=== PATIENT | male | born 1955 | race Two or more races ===

== ENCOUNTER 2024-09-26 19:33 | Emergency (ER) | payer BC, SELFPAY ==
[2024-09-26 19:34] VITALS: BMI 29.9
--- NOTE | 2024-09-26 19:35 | EKG_ITS ---
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
[2024-09-26 20:10] VITALS: BP 115/77; PULSE 86; RESP 18; TEMP 36.8; O2SAT 98
--- NOTE | 2024-09-26 20:19 | XR_ITS ---
Examination: PA lateral chest 2 views Technique: Upright PA lateral chest 2 views Exam date and time: September 26, 20242025 hrs. Comparison April 28, 2024 Indications: Chest pain coughing beginning one week ago. Findings: Bibasilar pneumonia Mild prominence left ventricle Cardiac leads satisfactory position No pulmonary edema Impression: Mild to moderate bibasilar pneumonia
--- NOTE | 2024-09-26 20:19 | PD.EDRME ---
Rapid Medical Screening Exam RME Arrival date/time: 09/26/24 19:33 68-year-old male with past medical history of diabetes, CAD, and pacemaker presents emergency department complaining of worsening shortness of breath and edema to abdomen and bilateral lower extremities that is been progressively getting worse for 2 weeks. Chief Complaint: General Adult/Misc Complain Time Seen by Provider: 09/26/24 20:17 Vital signs: Vital Signs Temperature 98.3 F 09/26/24 20:10 Pulse Rate 86 09/26/24 20:10 Respiratory Rate 18 09/26/24 20:10 Blood Pressure 115/77 09/26/24 20:10 Pulse Oximetry (%) 98 09/26/24 20:10 Oxygen Delivery Method Room Air 09/26/24 20:10 Vital signs reviewed by provider: Yes
[2024-09-26 20:58] LABS: Basophils % (Auto) 0 % (0-2.5); Eosinophils # (Auto) 0.2 Thou/mm3 (0.0-0.5); Eosinophils % (Auto) 2 % (0-10); Hematocrit 43.2 % (41.0-53.0); Hemoglobin 13.9 g/dL (13.5-16.0); Immature Granulocytes % (Auto) 1 % (0-0); Immature Granulocytes Auto 0.05 Thou/mm3 (0.00-0.00); Lymphocytes # (Auto) 1.5 Thou/mm3 (1.0-4.8); Lymphocytes % (Auto) 15 % (10-50); Mean Corpuscular HGB Conc 32.2 g/dl (31.0-37.0); Mean Corpuscular Hemoglobin 27.1 pg (25.0-35.0); Mean Corpuscular Volume 84 fL (80-100); Monocytes # (Auto) 0.5 Thou/mm3 (0.0-0.8); Monocytes % (Auto) 6 % (0-12); Neutrophils # (Auto) 7.5 Thou/mm3 (1.8-7.7); Neutrophils % (Auto) 77 % (37-80); Nucleated Red Blood Cell % 0 /100 WBC (0); Platelet Count 208 Thou/mm3 (140-440); Red Blood Count 5.13 Miln/mm3 (4.50-5.90); White Blood Count 9.8 Thou/mm3 (3.8-10.6)
[2024-09-26 21:08] LABS: Collection Type, Urine Clean Catch
[2024-09-26 21:16] LABS: Bilirubin,Urine Negative (Negative); Blood,Urine Negative (Negative); Clarity,Urine Clear (Clear/Hazy); Color,Urine Yellow (Lt Yel-Yel); Glucose, Urine Negative (Negative); Hyaline Casts,Urine < 1 /hpf (0-1); Ketones,Urine Negative (Negative); Leukocyte Esterase,Urine Negative (Negative); Nitrite,Urine Negative (Negative); PH,Urine 6.5 (5.0-7.0); Protein,Urine 1+ (Neg - Trace); RBC,Urine 1 /hpf (0-3); Specific Gravity,Urine 1.016 (1.001-1.035); Squamous Epithelial Cell,Urine < 1 /hpf (0-5); Urobilinogen,Urine Negative mg/dL (0.0-1.0); WBC,Urine 1 /hpf (0-5)
[2024-09-26 21:19] LABS: B-Type Natriuretic Peptide > 3280 pg/mL (0-100)
[2024-09-26 21:20] LABS: Alanine Aminotransferase 55 U/L (10-49); Albumin, Serum 3.9 gm/dL (3.4-4.8); Alkaline Phosphatase 269 U/L (46-116); Anion Gap 6 (7-16); Aspartate Amino Transferase 85 U/L (0-34); BUN/Creatinine Ratio 12 Ratio (12-20); Bilirubin,Total 1.3 mg/dL (0.3-1.2); Blood Urea Nitrogen 16 mg/dL (9-23); Calcium 9.6 mg/dL (8.3-10.6); Calcium (Corrected) 9.7 mg/dL (8.5-10.1); Carbon Dioxide 29.6 mMol/L (20.0-31.0); Chloride 102 mMol/L (98-107); Creatinine (Component) 1.3 mg/dL (0.6-1.3); Estimated Creatinine Clearance 53.5 mL/min (>60); Globulin 3.9 gm/dL (2.3-3.5); Glucose 150 mg/dL (74-106); Magnesium 2.1 mg/dL (1.6-2.6); Osmolality,Calculated 279 (275-295); Potassium 4.2 mMol/L (3.4-5.1); Sodium 138 mMol/L (136-145); Total Protein 7.8 gm/dL (5.7-8.2); eGFR 60 See Note
[2024-09-26 21:22] LABS: Troponin I 0.076 ng/mL (0.0-0.045)
[2024-09-26 21:23] VITALS: BP 116/80; PULSE 79; RESP 18; TEMP 37.3; O2SAT 97
--- NOTE | 2024-09-26 21:31 | EDNOTE_ITS ---
ED General RME/HPI General Chief complaint: General Adult/Misc Complain Stated complaint: BILATERAL LEG SWELLING, SOB Time Seen by Provider: 09/26/24 20:17 Source: patient Arrival date/time: 09/26/24 19:33 Mode of arrival: ambulatory Limitations: no limitations RME / HPI RME / HPI narrative: 09/26/24 19:33 68-year-old male with past medical history of diabetes, CAD, and pacemaker presents emergency department complaining of worsening shortness of breath and edema to abdomen and bilateral lower extremities that is been progressively getting worse for [address] BAUTISTA MAIN ED EVALUATION: 68 year old male presents to the Emergency Department with complaints of worsening shortness of breath and edema to lower extremities. Associated symptoms include fatigue. Symptoms are mild to moderate. PMHx: Nonischemic cardiomyopathy, chronic systolic heart failure, paroxysmal atrial fibrillation, heart failure with reduced ejection fraction 25-30% on maximal medical management including carvedilol, Entresto, and diuretics; pacemaker. Social Hx: No tobacco, alcohol, or substance use. Related Data Home Medications ?Medication ?Instructions ?Recorded ?Confirmed empagliflozin 25 mg tablet 25 mg PO QDAY 11/16/20 05/21/24 (Jardiance) amiodarone 200 mg tablet 200 mg PO BID 02/26/21 05/21/24 sitagliptin phosphate 100 mg 100 mg PO QDAY 02/27/21 05/21/24 tablet (Januvia) Previous Rx's ?Medication ?Instructions ?Recorded doxycycline monohydrate 100 mg 100 mg PO BID #14 caps 09/26/24 capsule Allergies Allergy/AdvReac Type Severity Reaction Status Date / Time No Known Allergies Allergy Verified 09/26/24 19:35 Review of Systems Review of Systems Systems Reviewed: All systems reviewed, normal except as documented Narrative Review of Systems: GEN: No fever, no chills, no weight loss, + edema to lower extremities, + fatigue EYES: No discharge, no visual changes, no pain HEENT: No ear pain, no congestion, no sore throat PULM: + shortness of breath, no cough, no congestion CV: No chest pain, no dyspnea on exertion, no palpitations GI: No nausea, no vomiting, no diarrhea, no pain, no constipation : No frequency, no urgency and no dysuria MUSC/SKEL: No joint pain, no back pain SKIN: No rash PSYCH: No hallucinations, no depression HEME/LYMPH: No easy bleeding or bruising tendencies NEURO: No weakness, no headache Past Medical History Past Medical History CARDIAC: Positive Congestive Heart Failure RESPIRATORY: Positive Asthma, Bronchitis and Pneumonia GENITOURINARY: Positive Genitourinary Disorders MUSCULOSKELETAL: Positive Musculoskeletal Disorders ENDOCRINE: Positive Endocrine Disorders and Diabetes Mellitus Type 2 OTHER HISTORY: Positive Measles Family History FAMILY HISTORY: Positive Family Cardiac Disorders, Family Gastrointestinal Problems and Family Cancer Surgical History SURGICAL: Positive Angiogram and Abdominal Surgery Social History SMOKING STATUS: Never smoker SECOND HAND EXPOSURE: No SUBSTANCE USE: does not use ALCOHOL: Never ED Exam Narrative Physical exam: GENERAL APPEARANCE: alert and oriented x 4, well-developed, well-nourished, no acute distress VITALS: All vitals were reviewed and the pulse ox is 97% on room air, which is normal according to my interpretation. HEENT: Normocephalic, atraumatic; pupils equal, round, reactive to light; EOMI; mucous membranes pink, moist; oropharynx clear NECK: Supple LUNGS: CTABL; no wheezes, no rales, no rhonchi HEART: Regular rate, regular rhythm; normal S1, S2; no murmurs ABDOMEN: non distended; normal BS; soft, no tenderness, no guarding, no rebound; no masses, no organomegaly, no hernia BACK: no CVA tenderness EXTREMITIES: atraumatic; no edema NEUROLOGIC: awake; alert and oriented x4; cranial nerves II-XII grossly intact; no focal sensory or motor deficits PSYCHIATRIC: appropriate mood and affect SKIN: warm, dry, normal color; no rashes General Limitations: Present no limitations Course Course Course Narrative: Reviewed records Echocardiogram 04/28/24: Dilated cardiomyopathy. Severe systolic dysfunction. Severe global hypokinesis. Estimated EF 25-30% Quality Measures none Orders Category Date Time Status EKG (ED ONLY) *Do not use* NOW Care 09/26/24 19:35 Completed Intake and Output Routine Care 09/26/24 22:43 Ordered EKG (ED Only) Stat Exams 09/26/24 19:35 Draft XR chest 2V Stat Exams 09/26/24 20:19 Completed B-Type Natriuretic Peptide Stat Lab 09/26/24 20:43 Completed CBC Stat Lab 09/26/24 20:43 Completed Comprehensive Metabolic Panel Stat Lab 09/26/24 20:43 Completed Drug Screen,Urine Stat Lab 09/26/24 20:55 Completed Magnesium Stat Lab 09/26/24 20:43 Completed Partial Thromboplastin Time Stat Lab 09/26/24 21:50 Completed Prothrombin Time with INR Stat Lab 09/26/24 21:50 Completed Troponin I Stat Lab 09/26/24 20:43 Completed Troponin I Stat Lab 09/26/24 23:47 Completed Urinalysis Stat Lab 09/26/24 20:55 Completed Doxycycline [Vibramycin] Med 09/26/24 23:53 Discontinued 100 mg PO X1 ONE Furosemide Inj [Lasix Inj] Med 09/26/24 21:28 Discontinued 40 mg IVP X1 ONE Vital Signs Vital signs: Vital Signs Temperature 98.3 F 09/26/24 20:10 Pulse Rate 86 09/26/24 20:10 Respiratory Rate 18 09/26/24 20:10 Blood Pressure 115/77 09/26/24 20:10 Pulse Oximetry (%) 98 09/26/24 20:10 Oxygen Delivery Method Room Air 09/26/24 20:10 [facility] Patient data External records reviewed:: [facility] previous records (Reviewed operative note by Dr. Craig dated 05/24/24.) Clinical information provided by:: patient Social determinants that could affect healthcare access:: none Patient has the following chronic illnesses:: Nonischemic cardiomyopathy, chronic systolic heart failure, paroxysmal atrial fibrillation, heart failure with reduced ejection fraction 25-30% on maximal medical management including carvedilol, Entresto, and diuretics; pacemaker. How is presenting disease/condition affected by chronic disease/condition?: e xacerbated by Evaluation data The following diagnostics were reviewed and interpreted by me:: lab results, radiology exam(s) and EKG tracing(s) Lab and/or radiology exams considered but not ordered:: none Interpretation Summary: Procedure(s): XR chest 2V Accession Number(s): [id number] cc: Alexander Rod MD; Sj Ambriz (FNP); Rolando Irizarry MD~ Examination: PA lateral chest 2 views Technique: Upright PA lateral chest 2 views Exam date and time: September 26, 20242025 hrs. Comparison April 28, 2024 Indications: Chest pain coughing beginning one week ago. Findings: Bibasilar pneumonia Mild prominence left ventricle Cardiac leads satisfactory position No pulmonary edema Impression: Mild to moderate bibasilar pneumonia Dictated By: Alexander Rod MD Medications Medications considered but not ordered:: none Medication administrations:: Medication Administration History Discontinued Medications Doxycycline Hyclate (Doxycycline 100 Mg Tablet) 100 mg PO X1 ONE Stop: 09/26/24 23:54 Last Admin: 09/27/24 00:25 Dose: 100 mg Documented By: Furosemide (Furosemide Inj 10 Mg/Ml 4ml Vial) 40 mg IVP X1 ONE Stop: 09/26/24 21:29 Last Admin: 09/26/24 21:37 Dose: 40 mg Documented By: CB see above Consultations Consultation(s) initiated? (list below): No Diagnosis Differential Diagnosis ED Complaint MDM: acute on chronic renal failure, worsening CHF, cardiomyopathy Most likely diagnosis given after review of the tests above:: Dyspnea, Bronchitis, CHF exacerbation Admission Indicated Admission indicated?: not indicated Explain why admission is indicated or not indicated:: Patient has no emergent abnormalities in their studies and can be managed on an outpatient basis. Admission Request Was there a request for admission?: No Disposition Plan Disposition Plan: Discharge Discharge Attestation Discharge Attestation: The patient and all family members were given an opportunity to ask questions and understood the discharge instructions. Discharge instructions specifically effects, indications for sooner follow up or return to the emergency department, and the expected course of current diagnosis. Patient condition: Stable Medical Decision Making MDM Narrative MDM Narrative: Scribe Attestation: I, Tonia Betancur, am scribing for and in the presence of Dr. Bautista. Provider Notation: Although this document has been carefully reviewed, there may still be some phonetic and other typographical errors. These errors are purely grammatical due to imperfections in the software program and should not be construed in any way to compromise the substance of the patient's medical care during this visit. Differential Diagnosis Differential Diagnosis: acute on chronic renal failure, worsening CHF, cardiomyopathy Medical Records Medical records reviewed: Yes I reviewed the patient's medical records. Lab Data Lab results reviewed: Yes I reviewed the patient's lab results. 09/26/24 20:43 09/26/24 20:43 Labs: Lab Results 09/26/24 09/26/24 09/26/24 Range/Units 20:43 20:55 21:50 WBC 9.8 (3.8-10.6) Thou/mm3 RBC 5.13 (4.50-5.90) Miln/mm3 Hgb 13.9 (13.5-16.0) g/dL Hct 43.2 (41.0-53.0) % MCV 84 (80-100) fL MCH 27.1 (25.0-35.0) pg MCHC 32.2 (31.0-37.0) g/dl RDW Std Deviation 52.0 H (35.1-43.9) fL Plt Count 208 (140-440) Thou/mm3 Neut % (Auto) 77 (37-80) % Lymph % (Auto) 15 (10-50) % [place] % (Auto) 6 (0-12) % Eos % (Auto) 2 (0-10) % Baso % (Auto) 0 (0-2.5) % Neut # (Auto) 7.5 (1.8-7.7) Thou/mm3 Lymph # (Auto) 1.5 (1.0-4.8) Thou/mm3 [place] # (Auto) 0.5 (0.0-0.8) Thou/mm3 Eos # (Auto) 0.2 (0.0-0.5) Thou/mm3 Baso # (Auto) 0.0 (0.0-0.2) Thou/mm3 Immature Gran # (Auto) 0.05 H (0.00-0.00) Thou/mm3 Absolute Nucleated RBC 0.00 (0.00-0.00) Thou/mm3 Immature Gran % 1 H (0-0) % Nucleated RBC % 0 (0) /100 WBC PT 11.6 (9.0-12.2) Seconds INR 1.1 (0.9-1.3) APTT 31.4 (22.0-36.0) Seconds Sodium 138 (136-145) mMol/L Potassium 4.2 (3.4-5.1) mMol/L Chloride 102 (98-107) mMol/L Carbon Dioxide 29.6 (20.0-31.0) mMol/L Anion Gap 6 L (7-16) BUN 16 (9-23) mg/dL Creatinine 1.3 (0.6-1.3) mg/dL Estim Creat Clear Calc 53.5 L (>60) mL/min eGFR 60 (60 - ) See Note BUN/Creatinine Ratio 12 (12-20) Ratio Glucose 150 H (74-106) mg/dL Calculated Osmolality 279 (275-295) Calcium 9.6 (8.3-10.6) mg/dL Corrected Calcium 9.7 (8.5-10.1) mg/dL Magnesium 2.1 (1.6-2.6) mg/dL Total Bilirubin 1.3 H (0.3-1.2) mg/dL AST 85 H (0-34) U/L ALT 55 H (10-49) U/L Alkaline Phosphatase 269 H (46-116) U/L Troponin I 0.076 H* (0.0-0.045) ng/mL B-Natriuretic Peptide > 3280 H* (0-100) pg/mL Total Protein 7.8 (5.7-8.2) gm/dL Albumin 3.9 (3.4-4.8) gm/dL Globulin 3.9 H (2.3-3.5) gm/dL Albumin/Globulin Ratio 1.0 L (1.2-2.2) Ur Collection Type Clean Catch Urine Color Yellow (Lt Yel-Yel) Urine Clarity Clear (Clear/Hazy) Urine pH 6.5 (5.0-7.0) Ur Specific [place] 1.016 (1.001-1.035) Urine Protein 1+ A (Neg - Trace) Urine Glucose (UA) Negative (Negative) Urine Ketones Negative (Negative) Urine Blood Negative (Negative) Urine Nitrite Negative (Negative) Urine Bilirubin Negative (Negative) Urine Urobilinogen (Auto) Negative (0.0-1.0) mg/dL Ur Leukocyte Esterase Negative (Negative) Urine RBC 1 (0-3) /hpf Urine WBC 1 (0-5) /hpf Ur Squamous Epith Cells < 1 (0-5) /hpf Urine Bacteria None (None) Hyaline Casts < 1 (0-1) /hpf Urine Opiates Screen Negative (Negative) Urine Fentanyl Screen Negative (Negative) Ur Barbiturates Screen Negative (Negative) U Amphetamin/Meth Scrn Negative (Negative) U Benzodiazepines Scrn Negative (Negative) U Cocaine Metab Screen Negative (Negative) U Marijuana (THC) Screen Negative (Negative) 09/27/24 Range/Units 00:10 WBC (3.8-10.6) Thou/mm3 RBC (4.50-5.90) Miln/mm3 Hgb (13.5-16.0) g/dL Hct (41.0-53.0) % MCV (80-100) fL MCH (25.0-35.0) pg MCHC (31.0-37.0) g/dl RDW Std Deviation (35.1-43.9) fL Plt Count (140-440) Thou/mm3 Neut % (Auto) (37-80) % Lymph % (Auto) (10-50) % [place] % (Auto) (0-12) % Eos % (Auto) (0-10) % Baso % (Auto) (0-2.5) % Neut # (Auto) (1.8-7.7) Thou/mm3 Lymph # (Auto) (1.0-4.8) Thou/mm3 [place] # (Auto) (0.0-0.8) Thou/mm3 Eos # (Auto) (0.0-0.5) Thou/mm3 Baso # (Auto) (0.0-0.2) Thou/mm3 Immature Gran # (Auto) (0.00-0.00) Thou/mm3 Absolute Nucleated RBC (0.00-0.00) Thou/mm3 Immature Gran % (0-0) % Nucleated RBC % (0) /100 WBC PT (9.0-12.2) Seconds INR (0.9-1.3) APTT (22.0-36.0) Seconds Sodium (136-145) mMol/L Potassium (3.4-5.1) mMol/L Chloride (98-107) mMol/L Carbon Dioxide (20.0-31.0) mMol/L Anion Gap (7-16) BUN (9-23) mg/dL Creatinine (0.6-1.3) mg/dL Estim Creat Clear Calc (>60) mL/min eGFR (60 - ) See Note BUN/Creatinine Ratio (12-20) Ratio Glucose (74-106) mg/dL Calculated Osmolality (275-295) Calcium (8.3-10.6) mg/dL Corrected Calcium (8.5-10.1) mg/dL Magnesium (1.6-2.6) mg/dL Total Bilirubin (0.3-1.2) mg/dL AST (0-34) U/L ALT (10-49) U/L Alkaline Phosphatase (46-116) U/L Troponin I 0.075 H* (0.0-0.045) ng/mL B-Natriuretic Peptide (0-100) pg/mL Total Protein (5.7-8.2) gm/dL Albumin (3.4-4.8) gm/dL Globulin (2.3-3.5) gm/dL Albumin/Globulin Ratio (1.2-2.2) Ur Collection Type Urine Color (Lt Yel-Yel) Urine Clarity (Clear/Hazy) Urine pH (5.0-7.0) Ur Specific [place] (1.001-1.035) Urine Protein (Neg - Trace) Urine Glucose (UA) (Negative) Urine Ketones (Negative) Urine Blood (Negative) Urine Nitrite (Negative) Urine Bilirubin (Negative) Urine Urobilinogen (Auto) (0.0-1.0) mg/dL Ur Leukocyte Esterase (Negative) Urine RBC (0-3) /hpf Urine WBC (0-5) /hpf Ur Squamous Epith Cells (0-5) /hpf Urine Bacteria (None) Hyaline Casts (0-1) /hpf Urine Opiates Screen (Negative) Urine Fentanyl Screen (Negative) Ur Barbiturates Screen (Negative) U Amphetamin/Meth Scrn (Negative) U Benzodiazepines Scrn (Negative) U Cocaine Metab Screen (Negative) U Marijuana (THC) Screen (Negative) Radiology Data Radiology results reviewed: Yes I reviewed the patient's radiology results. Discharge Plan Plan Patient Disposition: HOME (Self Care) Prescriptions/Referrals Prescriptions/Med Rec: New doxycycline monohydrate 100 mg capsule 100 mg PO BID Qty: 14 0RF No Action amiodarone 200 mg Tablet 200 mg PO BID Hold Instructions: hold until seen by doctor with appointment until further instructions Januvia 100 mg Tablet 100 mg PO QDAY Jardiance 25 mg Tablet 25 mg PO QDAY Hold Instructions: hold until seen by doctor with appointment until further instructions Referrals: Rolando Irizarry MD [Primary Care Provider] - In 1 week Problem List Clinical Impression: Dyspnea, Bronchitis, CHF exacerbation Patient/Caregiver Discharge Instructions Education Materials: ED Upper Resp Infec Abx Tx, Heart Failure Print Language: Slovenian Stand Alone Forms: Be[employer]ice Award Info., Patient Portal Info Letter
[2024-09-26 21:34] LABS: Amphetamine/Methamp Scrn,U Negative (Negative); Barbiturate Screen,Urine Negative (Negative); Benzodiazepines Screen,Urine Negative (Negative); Benzoylecgonine Screen, Ur Negative (Negative); Fentanyl Screen,Urine Negative (Negative); Opiate Screen,Urine Negative (Negative); THC Screen,Urine Negative (Negative)
[2024-09-26 21:37] VITALS: BP 121/89; PULSE 80
[2024-09-26] MEDS: FUROSEMIDE INJ 10 MG/ML 4ML VIAL 40 MG IVP (21:37)
[2024-09-26 22:21] LABS: INR 1.1 (0.9-1.3); Partial Thromboplastin Time 31.4 Seconds (22.0-36.0); Prothrombin Time 11.6 Seconds (9.0-12.2)
[2024-09-26 22:45] VITALS: BP 104/75; PULSE 73; RESP 18; TEMP 37.3; O2SAT 97
[2024-09-27] MEDS: DOXYCYCLINE 100 MG TABLET PO (00:25)
[2024-09-27 00:46] VITALS: BP 111/82; PULSE 73; RESP 20; O2SAT 97
[2024-09-27 00:51] LABS: Troponin I 0.075 ng/mL (0.0-0.045)
[2024-09-27 02:00] VITALS: BP 102/67; PULSE 72; RESP 20; TEMP 37.2; O2SAT 95
== END 2024-09-27 02:01 | disposition home or self-care (01) ==
PROVIDERS: Emergency Provider Emergency Medicine; PCP Family Medicine
DX: J40 Bronchitis, not specified as acute or chronic (principal); J18.9 Pneumonia, unspecified organism; I50.22 Chronic systolic (congestive) heart failure; I48.0 Paroxysmal atrial fibrillation; I42.8 Other cardiomyopathies; R94.31 Abnormal electrocardiogram [ECG] [EKG]; Z95.0 Presence of cardiac pacemaker
CPT/HCPCS: 36415; 71046; 80053; 80307; 81001; 83735; 83880; 84484; 85025; 85610; 85730; 93005; 96374; 99284; J1940; A9270

== ENCOUNTER → 2024-10-11 | Outpatient (CLI) | payer BC, SELFPAY ==
[2024-10-11 08:49] LABS: Albumin, Serum 3.7 gm/dL (3.4-4.8); Anion Gap 8 (7-16); BUN/Creatinine Ratio 19 Ratio (12-20); Blood Urea Nitrogen 25 mg/dL (9-23); Calcium 9.3 mg/dL (8.3-10.6); Calcium (Corrected) 9.5 mg/dL (8.5-10.1); Carbon Dioxide 31.4 mMol/L (20.0-31.0); Chloride 100 mMol/L (98-107); Creatinine (Component) 1.3 mg/dL (0.6-1.3); Glucose 91 mg/dL (74-106); Osmolality,Calculated 281 (275-295); Phosphorous 3.5 mg/dL (2.4-5.1); Potassium 3.8 mMol/L (3.4-5.1); Sodium 139 mMol/L (136-145); eGFR 60 See Note
== END | disposition home or self-care (01) ==
PROVIDERS: PCP Family Medicine; Referring Provider Internal Medicine Cardiovascular Disease; Visit Provider Internal Medicine Cardiovascular Disease
DX: I50.22 Chronic systolic (congestive) heart failure (principal)
CPT/HCPCS: 36415; 80069

== ENCOUNTER → 2024-10-21 | Outpatient (CLI) | payer BC, SELFPAY ==
[2024-10-21 08:44] LABS: Basophils % (Auto) 0 % (0-2.5); Eosinophils # (Auto) 0.1 Thou/mm3 (0.0-0.5); Eosinophils % (Auto) 1 % (0-10); Hematocrit 50.9 % (41.0-53.0); Hemoglobin 16.5 g/dL (13.5-16.0); Immature Granulocytes % (Auto) 1 % (0-0); Immature Granulocytes Auto 0.05 Thou/mm3 (0.00-0.00); Lymphocytes # (Auto) 1.4 Thou/mm3 (1.0-4.8); Lymphocytes % (Auto) 13 % (10-50); Mean Corpuscular HGB Conc 32.4 g/dl (31.0-37.0); Mean Corpuscular Hemoglobin 26.5 pg (25.0-35.0); Mean Corpuscular Volume 82 fL (80-100); Monocytes # (Auto) 0.7 Thou/mm3 (0.0-0.8); Monocytes % (Auto) 7 % (0-12); Neutrophils # (Auto) 8.1 Thou/mm3 (1.8-7.7); Neutrophils % (Auto) 78 % (37-80); Nucleated Red Blood Cell % 0 /100 WBC (0); Platelet Count 257 Thou/mm3 (140-440); RDW Standard Deviation 46.7 fL (35.1-43.9); Red Blood Count 6.23 Miln/mm3 (4.50-5.90); White Blood Count 10.4 Thou/mm3 (3.8-10.6)
[2024-10-21 09:12] LABS: Alanine Aminotransferase 113 U/L (10-49); Alkaline Phosphatase 390 U/L (46-116); Anion Gap 6 (7-16); Aspartate Amino Transferase 154 U/L (0-34); BUN/Creatinine Ratio 21 Ratio (12-20); Bilirubin,Total 1.2 mg/dL (0.3-1.2); Blood Urea Nitrogen 34 mg/dL (9-23); Calcium 9.1 mg/dL (8.3-10.6); Calcium (Corrected) 9.1 mg/dL (8.5-10.1); Carbon Dioxide 33.6 mMol/L (20.0-31.0); Chloride 90 mMol/L (98-107); Creatinine (Component) 1.6 mg/dL (0.6-1.3); Glucose 101 mg/dL (74-106); Osmolality,Calculated 268 (275-295); Phosphorous 3.4 mg/dL (2.4-5.1); Potassium 3.9 mMol/L (3.4-5.1); Sodium 130 mMol/L (136-145); eGFR 47 See Note
== END | disposition home or self-care (01) ==
PROVIDERS: PCP Internal Medicine Cardiovascular Disease; Referring Provider Family Medicine; Visit Provider Internal Medicine Nephrology
DX: I13.0 Hypertensive heart and chronic kidney disease with heart failure and stage 1 through stage 4 chronic kidney disease, or unspecified chronic kidney disease (principal); E11.22 Type 2 diabetes mellitus with diabetic chronic kidney disease; N18.9 Chronic kidney disease, unspecified; D63.1 Anemia in chronic kidney disease; E78.5 Hyperlipidemia, unspecified; I50.22 Chronic systolic (congestive) heart failure
CPT/HCPCS: 36415; 80053; 84100; 85025

== ENCOUNTER → 2024-11-03 | Outpatient (CLI) | payer BC, SELFPAY ==
[2024-11-03 08:22] LABS: Basophils % (Auto) 1 % (0-2.5); Eosinophils # (Auto) 0.2 Thou/mm3 (0.0-0.5); Eosinophils % (Auto) 2 % (0-10); Hematocrit 45.2 % (41.0-53.0); Hemoglobin 14.7 g/dL (13.5-16.0); Immature Granulocytes % (Auto) 1 % (0-0); Immature Granulocytes Auto 0.04 Thou/mm3 (0.00-0.00); Lymphocytes # (Auto) 1.1 Thou/mm3 (1.0-4.8); Lymphocytes % (Auto) 13 % (10-50); Mean Corpuscular HGB Conc 32.5 g/dl (31.0-37.0); Mean Corpuscular Hemoglobin 26.7 pg (25.0-35.0); Mean Corpuscular Volume 82 fL (80-100); Monocytes # (Auto) 0.6 Thou/mm3 (0.0-0.8); Monocytes % (Auto) 8 % (0-12); Neutrophils # (Auto) 6.2 Thou/mm3 (1.8-7.7); Neutrophils % (Auto) 76 % (37-80); Nucleated Red Blood Cell % 0 /100 WBC (0); Platelet Count 218 Thou/mm3 (140-440); RDW Standard Deviation 47.8 fL (35.1-43.9); White Blood Count 8.2 Thou/mm3 (3.8-10.6)
[2024-11-03 08:39] LABS: Alanine Aminotransferase 68 U/L (10-49); Albumin, Serum 3.6 gm/dL (3.4-4.8); Alkaline Phosphatase 366 U/L (46-116); Anion Gap 6 (7-16); Aspartate Amino Transferase 98 U/L (0-34); BUN/Creatinine Ratio 16 Ratio (12-20); Bilirubin,Total 1.4 mg/dL (0.3-1.2); Blood Urea Nitrogen 18 mg/dL (9-23); Calcium 8.8 mg/dL (8.3-10.6); Calcium (Corrected) 9.1 mg/dL (8.5-10.1); Carbon Dioxide 31.2 mMol/L (20.0-31.0); Chloride 98 mMol/L (98-107); Creatinine (Component) 1.1 mg/dL (0.6-1.3); Globulin 3.5 gm/dL (2.3-3.5); Glucose 78 mg/dL (74-106); Magnesium 2.1 mg/dL (1.6-2.6); Osmolality,Calculated 271 (275-295); Potassium 4.5 mMol/L (3.4-5.1); Sodium 135 mMol/L (136-145); Total Protein 7.1 gm/dL (5.7-8.2); eGFR > 60 See Note
== END | disposition home or self-care (01) ==
PROVIDERS: PCP Family Medicine; Referring Provider Internal Medicine Nephrology; Visit Provider Internal Medicine Nephrology
DX: I12.9 Hypertensive chronic kidney disease with stage 1 through stage 4 chronic kidney disease, or unspecified chronic kidney disease (principal); N18.30 Chronic kidney disease, stage 3 unspecified; D63.1 Anemia in chronic kidney disease
CPT/HCPCS: 36415; 80053; 83735; 85025

== ENCOUNTER → 2024-11-17 | Outpatient (CLI) | payer BC, SELFPAY ==
[2024-11-17 08:13] LABS: Basophils % (Auto) 1 % (0-2.5); Eosinophils # (Auto) 0.1 Thou/mm3 (0.0-0.5); Eosinophils % (Auto) 2 % (0-10); Hematocrit 43.7 % (41.0-53.0); Hemoglobin 14.4 g/dL (13.5-16.0); Immature Granulocytes % (Auto) 1 % (0-0); Immature Granulocytes Auto 0.04 Thou/mm3 (0.00-0.00); Lymphocytes # (Auto) 1.2 Thou/mm3 (1.0-4.8); Lymphocytes % (Auto) 16 % (10-50); Mean Corpuscular Hemoglobin 27.3 pg (25.0-35.0); Mean Corpuscular Volume 83 fL (80-100); Monocytes # (Auto) 0.5 Thou/mm3 (0.0-0.8); Monocytes % (Auto) 7 % (0-12); Neutrophils # (Auto) 5.6 Thou/mm3 (1.8-7.7); Neutrophils % (Auto) 74 % (37-80); Nucleated Red Blood Cell % 0 /100 WBC (0); Platelet Count 215 Thou/mm3 (140-440); RDW Standard Deviation 50.4 fL (35.1-43.9); Red Blood Count 5.28 Miln/mm3 (4.50-5.90); White Blood Count 7.6 Thou/mm3 (3.8-10.6)
[2024-11-17 08:47] LABS: Alanine Aminotransferase 74 U/L (10-49); Albumin, Serum 3.4 gm/dL (3.4-4.8); Albumin/Globulin Ratio 0.9 (1.2-2.2); Alkaline Phosphatase 292 U/L (46-116); Anion Gap 5 (7-16); Aspartate Amino Transferase 135 U/L (0-34); BUN/Creatinine Ratio 20 Ratio (12-20); Bilirubin,Total 1.3 mg/dL (0.3-1.2); Blood Urea Nitrogen 24 mg/dL (9-23); Calcium 9.3 mg/dL (8.3-10.6); Calcium (Corrected) 9.8 mg/dL (8.5-10.1); Carbon Dioxide 31.7 mMol/L (20.0-31.0); Chloride 101 mMol/L (98-107); Creatinine (Component) 1.2 mg/dL (0.6-1.3); Globulin 3.7 gm/dL (2.3-3.5); Glucose 108 mg/dL (74-106); Osmolality,Calculated 280 (275-295); Potassium 4.3 mMol/L (3.4-5.1); Sodium 138 mMol/L (136-145); Total Protein 7.1 gm/dL (5.7-8.2); eGFR > 60 See Note
== END | disposition home or self-care (01) ==
PROVIDERS: PCP Family Medicine; Referring Provider Internal Medicine Nephrology; Visit Provider Internal Medicine Nephrology
DX: I12.9 Hypertensive chronic kidney disease with stage 1 through stage 4 chronic kidney disease, or unspecified chronic kidney disease (principal); N18.9 Chronic kidney disease, unspecified; D63.1 Anemia in chronic kidney disease
CPT/HCPCS: 36415; 80053; 83735; 85025

== ENCOUNTER → 2024-12-01 | Outpatient (CLI) | payer BC, SELFPAY ==
[2024-12-01 08:33] LABS: Basophils # (Auto) 0.1 Thou/mm3 (0.0-0.2); Basophils % (Auto) 1 % (0-2.5); Eosinophils # (Auto) 0.2 Thou/mm3 (0.0-0.5); Eosinophils % (Auto) 2 % (0-10); Hematocrit 42.3 % (41.0-53.0); Hemoglobin 14.1 g/dL (13.5-16.0); Immature Granulocytes % (Auto) 1 % (0-0); Immature Granulocytes Auto 0.05 Thou/mm3 (0.00-0.00); Lymphocytes # (Auto) 1.2 Thou/mm3 (1.0-4.8); Lymphocytes % (Auto) 15 % (10-50); Mean Corpuscular HGB Conc 33.3 g/dl (31.0-37.0); Mean Corpuscular Hemoglobin 27.9 pg (25.0-35.0); Mean Corpuscular Volume 84 fL (80-100); Monocytes # (Auto) 0.6 Thou/mm3 (0.0-0.8); Monocytes % (Auto) 7 % (0-12); Neutrophils # (Auto) 5.9 Thou/mm3 (1.8-7.7); Neutrophils % (Auto) 75 % (37-80); Nucleated Red Blood Cell % 0 /100 WBC (0); Platelet Count 194 Thou/mm3 (140-440); RDW Standard Deviation 54.1 fL (35.1-43.9); Red Blood Count 5.06 Miln/mm3 (4.50-5.90); White Blood Count 7.9 Thou/mm3 (3.8-10.6)
[2024-12-01 08:50] LABS: Glucose Estimated Average 108 mg/dL (80-131); Hemoglobin A1C 5.4 % Hgb (4.8-6.0)
[2024-12-01 08:55] LABS: Alanine Aminotransferase 72 U/L (10-49); Albumin, Serum 3.3 gm/dL (3.4-4.8); Albumin/Globulin Ratio 0.8 (1.2-2.2); Alkaline Phosphatase 275 U/L (46-116); Anion Gap 9 (7-16); Aspartate Amino Transferase 117 U/L (0-34); BUN/Creatinine Ratio 19 Ratio (12-20); Bilirubin,Total 1.3 mg/dL (0.3-1.2); Blood Urea Nitrogen 19 mg/dL (9-23); Calcium 8.8 mg/dL (8.3-10.6); Calcium (Corrected) 9.4 mg/dL (8.5-10.1); Carbon Dioxide 29.5 mMol/L (20.0-31.0); Chloride 101 mMol/L (98-107); Glucose 97 mg/dL (74-106); Osmolality,Calculated 279 (275-295); Sodium 139 mMol/L (136-145); Total Protein 7.3 gm/dL (5.7-8.2); eGFR > 60 See Note
[2024-12-01 09:24] LABS: B-Type Natriuretic Peptide 479 pg/mL (0-100)
== END | disposition home or self-care (01) ==
PROVIDERS: PCP Family Medicine; Referring Provider Family Medicine; Visit Provider Family Medicine
DX: E11.65 Type 2 diabetes mellitus with hyperglycemia (principal)
CPT/HCPCS: 36415; 80053; 83036; 83880; 85025

== ENCOUNTER → 2024-12-15 | Outpatient (CLI) | payer BC, SELFPAY ==
[2024-12-15 08:39] LABS: Basophils % (Auto) 1 % (0-2.5); Eosinophils # (Auto) 0.2 Thou/mm3 (0.0-0.5); Eosinophils % (Auto) 2 % (0-10); Hematocrit 41.3 % (41.0-53.0); Hemoglobin 13.8 g/dL (13.5-16.0); Immature Granulocytes % (Auto) 0 % (0-0); Immature Granulocytes Auto 0.02 Thou/mm3 (0.00-0.00); Lymphocytes # (Auto) 1.2 Thou/mm3 (1.0-4.8); Lymphocytes % (Auto) 15 % (10-50); Mean Corpuscular HGB Conc 33.4 g/dl (31.0-37.0); Mean Corpuscular Hemoglobin 28.5 pg (25.0-35.0); Mean Corpuscular Volume 85 fL (80-100); Monocytes # (Auto) 0.5 Thou/mm3 (0.0-0.8); Monocytes % (Auto) 7 % (0-12); Neutrophils % (Auto) 76 % (37-80); Nucleated Red Blood Cell % 0 /100 WBC (0); Platelet Count 167 Thou/mm3 (140-440); RDW Standard Deviation 55.4 fL (35.1-43.9); Red Blood Count 4.84 Miln/mm3 (4.50-5.90); White Blood Count 7.9 Thou/mm3 (3.8-10.6)
[2024-12-15 08:59] LABS: Alanine Aminotransferase 55 U/L (10-49); Albumin, Serum 3.1 gm/dL (3.4-4.8); Albumin/Globulin Ratio 0.9 (1.2-2.2); Alkaline Phosphatase 232 U/L (46-116); Anion Gap 7 (7-16); Aspartate Amino Transferase 111 U/L (0-34); BUN/Creatinine Ratio 19 Ratio (12-20); Bilirubin,Total 1.4 mg/dL (0.3-1.2); Blood Urea Nitrogen 19 mg/dL (9-23); Calcium 8.9 mg/dL (8.3-10.6); Calcium (Corrected) 9.6 mg/dL (8.5-10.1); Chloride 101 mMol/L (98-107); Globulin 3.6 gm/dL (2.3-3.5); Glucose 88 mg/dL (74-106); Osmolality,Calculated 278 (275-295); Potassium 3.9 mMol/L (3.4-5.1); Sodium 139 mMol/L (136-145); Total Protein 6.7 gm/dL (5.7-8.2); eGFR > 60 See Note
== END | disposition home or self-care (01) ==
LOC: COPL 07:07
PROVIDERS: PCP Family Medicine; Referring Provider Internal Medicine Nephrology; Visit Provider Internal Medicine Cardiovascular Disease
DX: I12.9 Hypertensive chronic kidney disease with stage 1 through stage 4 chronic kidney disease, or unspecified chronic kidney disease (principal); N18.9 Chronic kidney disease, unspecified; D64.9 Anemia, unspecified
CPT/HCPCS: 36415; 80053; 85025

== ENCOUNTER → 2024-12-22 | Outpatient (CLI) | payer BC, SELFPAY ==
[2024-12-22 07:43] LABS: Glucose Estimated Average 100 mg/dL (80-131); Hemoglobin A1C 5.1 % Hgb (4.8-6.0)
[2024-12-22 07:48] LABS: Ammonia 21 uMol/L (11-32)
[2024-12-22 07:52] LABS: B-Type Natriuretic Peptide 823 pg/mL (0-100)
== END | disposition home or self-care (01) ==
PROVIDERS: PCP Family Medicine; Referring Provider Family Medicine; Visit Provider Family Medicine
DX: I50.9 Heart failure, unspecified (principal)
CPT/HCPCS: 36415; 82140; 83036; 83880

== ENCOUNTER → 2024-12-29 | Outpatient (CLI) | payer BC, SELFPAY ==
[2024-12-29 08:39] LABS: Glucose Estimated Average 97 mg/dL (80-131)
[2024-12-29 08:42] LABS: Basophils # (Auto) 0.1 Thou/mm3 (0.0-0.2); Basophils % (Auto) 1 % (0-2.5); Eosinophils # (Auto) 0.2 Thou/mm3 (0.0-0.5); Eosinophils % (Auto) 3 % (0-10); Hematocrit 42.5 % (41.0-53.0); Hemoglobin 14.1 g/dL (13.5-16.0); Immature Granulocytes % (Auto) 1 % (0-0); Immature Granulocytes Auto 0.04 Thou/mm3 (0.00-0.00); Lymphocytes # (Auto) 1.3 Thou/mm3 (1.0-4.8); Lymphocytes % (Auto) 16 % (10-50); Mean Corpuscular HGB Conc 33.2 g/dl (31.0-37.0); Mean Corpuscular Hemoglobin 28.5 pg (25.0-35.0); Mean Corpuscular Volume 86 fL (80-100); Monocytes # (Auto) 0.6 Thou/mm3 (0.0-0.8); Monocytes % (Auto) 7 % (0-12); Neutrophils # (Auto) 6.2 Thou/mm3 (1.8-7.7); Neutrophils % (Auto) 73 % (37-80); Nucleated Red Blood Cell % 0 /100 WBC (0); Platelet Count 179 Thou/mm3 (140-440); RDW Standard Deviation 54.4 fL (35.1-43.9); Red Blood Count 4.94 Miln/mm3 (4.50-5.90); White Blood Count 8.5 Thou/mm3 (3.8-10.6)
[2024-12-29 08:44] LABS: Alanine Aminotransferase 54 U/L (10-49); Albumin, Serum 3.1 gm/dL (3.4-4.8); Albumin/Globulin Ratio 0.8 (1.2-2.2); Alkaline Phosphatase 249 U/L (46-116); Anion Gap 5 (7-16); Aspartate Amino Transferase 99 U/L (0-34); BUN/Creatinine Ratio 14 Ratio (12-20); Bilirubin,Total 1.8 mg/dL (0.3-1.2); Blood Urea Nitrogen 15 mg/dL (9-23); Calcium 8.7 mg/dL (8.3-10.6); Calcium (Corrected) 9.4 mg/dL (8.5-10.1); Carbon Dioxide 30.3 mMol/L (20.0-31.0); Cardiac Risk Estimate 4.5 RATIO (4.0-6.7); Chloride 102 mMol/L (98-107); Cholesterol 144 mg/dL (132-200); Creatinine (Component) 1.1 mg/dL (0.6-1.3); Globulin 3.8 gm/dL (2.3-3.5); Glucose 103 mg/dL (74-106); HDL Cholesterol 32 mg/dL (40-60); LDL Cholesterol,Calculated 89 mg/dL (0-130); Magnesium 1.9 mg/dL (1.6-2.6); Osmolality,Calculated 274 (275-295); Potassium 4.5 mMol/L (3.4-5.1); Sodium 137 mMol/L (136-145); Total Protein 6.9 gm/dL (5.7-8.2); Triglycerides 117 mg/dL (30-150); eGFR > 60 See Note
[2024-12-29 09:00] LABS: Creatinine MALB Rnd Ur 72 mg/dL (30-125); Microalbumin, Random Urine < 3 mg/L (0-300)
== END | disposition home or self-care (01) ==
LOC: COPL 07:10
PROVIDERS: PCP Family Medicine; Referring Provider Internal Medicine Nephrology; Visit Provider Internal Medicine Nephrology
DX: I12.9 Hypertensive chronic kidney disease with stage 1 through stage 4 chronic kidney disease, or unspecified chronic kidney disease (principal); E11.22 Type 2 diabetes mellitus with diabetic chronic kidney disease; N18.31 Chronic kidney disease, stage 3a; E78.5 Hyperlipidemia, unspecified; D63.1 Anemia in chronic kidney disease
CPT/HCPCS: 36415; 80053; 80061; 82043; 82570; 83036; 83735; 85025

== ENCOUNTER → 2025-01-18 | Outpatient (CLI) | payer BC, SELFPAY ==
[2025-01-18 09:01] LABS: Glucose Estimated Average 91 mg/dL (80-131); Hemoglobin A1C 4.8 % Hgb (4.8-6.0)
[2025-01-18 09:13] LABS: B-Type Natriuretic Peptide 1008 pg/mL (0-100)
== END | disposition home or self-care (01) ==
PROVIDERS: PCP Family Medicine; Referring Provider Family Medicine; Visit Provider Family Medicine
DX: E11.65 Type 2 diabetes mellitus with hyperglycemia (principal)
CPT/HCPCS: 36415; 83036; 83880

== ENCOUNTER → 2025-01-24 | Outpatient (CLI) | payer BC, SELFPAY ==
[2025-01-24 11:43] LABS: Basophils # (Auto) 0.1 Thou/mm3 (0.0-0.2); Basophils % (Auto) 1 % (0-2.5); Eosinophils # (Auto) 0.2 Thou/mm3 (0.0-0.5); Eosinophils % (Auto) 2 % (0-10); Hematocrit 47.3 % (41.0-53.0); Hemoglobin 15.4 g/dL (13.5-16.0); Immature Granulocytes % (Auto) 1 % (0-0); Immature Granulocytes Auto 0.05 Thou/mm3 (0.00-0.00); Lymphocytes # (Auto) 1.4 Thou/mm3 (1.0-4.8); Lymphocytes % (Auto) 14 % (10-50); Mean Corpuscular HGB Conc 32.6 g/dl (31.0-37.0); Mean Corpuscular Hemoglobin 28.4 pg (25.0-35.0); Mean Corpuscular Volume 87 fL (80-100); Monocytes # (Auto) 0.7 Thou/mm3 (0.0-0.8); Monocytes % (Auto) 8 % (0-12); Neutrophils # (Auto) 7.5 Thou/mm3 (1.8-7.7); Neutrophils % (Auto) 76 % (37-80); Nucleated Red Blood Cell % 0 /100 WBC (0); Platelet Count 192 Thou/mm3 (140-440); RDW Standard Deviation 47.8 fL (35.1-43.9); Red Blood Count 5.43 Miln/mm3 (4.50-5.90); White Blood Count 9.9 Thou/mm3 (3.8-10.6)
[2025-01-24 12:00] LABS: Alanine Aminotransferase 59 U/L (10-49); Albumin, Serum 3.3 gm/dL (3.4-4.8); Albumin/Globulin Ratio 0.7 (1.2-2.2); Alkaline Phosphatase 249 U/L (46-116); Anion Gap 8 (7-16); Aspartate Amino Transferase 128 U/L (0-34); BUN/Creatinine Ratio 19 Ratio (12-20); Bilirubin,Total 1.9 mg/dL (0.3-1.2); Blood Urea Nitrogen 23 mg/dL (9-23); Calcium 9.6 mg/dL (8.3-10.6); Calcium (Corrected) 10.2 mg/dL (8.5-10.1); Carbon Dioxide 32.4 mMol/L (20.0-31.0); Chloride 96 mMol/L (98-107); Creatinine (Component) 1.2 mg/dL (0.6-1.3); Globulin 4.6 gm/dL (2.3-3.5); Glucose 102 mg/dL (74-106); Osmolality,Calculated 275 (275-295); Potassium 4.6 mMol/L (3.4-5.1); Sodium 136 mMol/L (136-145); Total Protein 7.9 gm/dL (5.7-8.2); eGFR > 60 See Note
== END | disposition home or self-care (01) ==
LOC: COPL 10:33
PROVIDERS: PCP Family Medicine; Referring Provider Internal Medicine Cardiovascular Disease; Visit Provider Internal Medicine Nephrology
DX: D64.9 Anemia, unspecified (principal); I50.9 Heart failure, unspecified; E78.5 Hyperlipidemia, unspecified
CPT/HCPCS: 36415; 80053; 85025

== ENCOUNTER → 2025-02-21 | Outpatient (CLI) | payer BC, SELFPAY ==
[2025-02-21 08:42] LABS: Basophils # (Auto) 0.1 Thou/mm3 (0.0-0.2); Basophils % (Auto) 1 % (0-2.5); Eosinophils # (Auto) 0.2 Thou/mm3 (0.0-0.5); Eosinophils % (Auto) 2 % (0-10); Hematocrit 45.8 % (41.0-53.0); Hemoglobin 15.4 g/dL (13.5-16.0); Immature Granulocytes % (Auto) 0 % (0-0); Immature Granulocytes Auto 0.03 Thou/mm3 (0.00-0.00); Lymphocytes # (Auto) 1.3 Thou/mm3 (1.0-4.8); Lymphocytes % (Auto) 14 % (10-50); Mean Corpuscular HGB Conc 33.6 g/dl (31.0-37.0); Mean Corpuscular Hemoglobin 28.6 pg (25.0-35.0); Mean Corpuscular Volume 85 fL (80-100); Monocytes # (Auto) 0.6 Thou/mm3 (0.0-0.8); Monocytes % (Auto) 6 % (0-12); Neutrophils # (Auto) 7.6 Thou/mm3 (1.8-7.7); Neutrophils % (Auto) 78 % (37-80); Nucleated Red Blood Cell % 0 /100 WBC (0); Platelet Count 181 Thou/mm3 (140-440); RDW Standard Deviation 46.8 fL (35.1-43.9); Red Blood Count 5.39 Miln/mm3 (4.50-5.90); White Blood Count 9.8 Thou/mm3 (3.8-10.6)
[2025-02-21 08:55] LABS: Alanine Aminotransferase 54 U/L (10-49); Albumin, Serum 3.3 gm/dL (3.4-4.8); Albumin/Globulin Ratio 0.7 (1.2-2.2); Alkaline Phosphatase 244 U/L (46-116); Anion Gap 7 (7-16); Aspartate Amino Transferase 108 U/L (0-34); BUN/Creatinine Ratio 13 Ratio (12-20); Bilirubin,Total 2.2 mg/dL (0.3-1.2); Blood Urea Nitrogen 15 mg/dL (9-23); Calcium (Corrected) 9.6 mg/dL (8.5-10.1); Carbon Dioxide 28.9 mMol/L (20.0-31.0); Chloride 95 mMol/L (98-107); Creatinine (Component) 1.2 mg/dL (0.6-1.3); Globulin 4.7 gm/dL (2.3-3.5); Glucose 113 mg/dL (74-106); Osmolality,Calculated 264 (275-295); Potassium 3.7 mMol/L (3.4-5.1); Sodium 131 mMol/L (136-145); eGFR > 60 See Note
== END | disposition home or self-care (01) ==
LOC: COPL 07:08
PROVIDERS: PCP Family Medicine; Referring Provider Internal Medicine Nephrology; Visit Provider Internal Medicine Nephrology
DX: E11.22 Type 2 diabetes mellitus with diabetic chronic kidney disease (principal); I12.9 Hypertensive chronic kidney disease with stage 1 through stage 4 chronic kidney disease, or unspecified chronic kidney disease; N18.30 Chronic kidney disease, stage 3 unspecified; D63.1 Anemia in chronic kidney disease
CPT/HCPCS: 36415; 80053; 85025

== ENCOUNTER → 2025-03-22 | Outpatient (CLI) | payer BC, SELFPAY ==
[2025-03-22 08:44] LABS: Basophils # (Auto) 0.1 Thou/mm3 (0.0-0.2); Basophils % (Auto) 0 % (0-2.5); Eosinophils # (Auto) 0.1 Thou/mm3 (0.0-0.5); Eosinophils % (Auto) 1 % (0-10); Hematocrit 41.2 % (41.0-53.0); Immature Granulocytes % (Auto) 1 % (0-0); Immature Granulocytes Auto 0.08 Thou/mm3 (0.00-0.00); Lymphocytes # (Auto) 1.5 Thou/mm3 (1.0-4.8); Lymphocytes % (Auto) 11 % (10-50); Mean Corpuscular Hemoglobin 28.9 pg (25.0-35.0); Mean Corpuscular Volume 85 fL (80-100); Monocytes # (Auto) 1.2 Thou/mm3 (0.0-0.8); Monocytes % (Auto) 8 % (0-12); Neutrophils % (Auto) 79 % (37-80); Nucleated Red Blood Cell % 0 /100 WBC (0); Platelet Count 191 Thou/mm3 (140-440); RDW Standard Deviation 55.8 fL (35.1-43.9); Red Blood Count 4.84 Miln/mm3 (4.50-5.90); White Blood Count 13.9 Thou/mm3 (3.8-10.6)
[2025-03-22 08:46] LABS: Alanine Aminotransferase 52 U/L (10-49); Albumin, Serum 2.9 gm/dL (3.4-4.8); Albumin/Globulin Ratio 0.7 (1.2-2.2); Alkaline Phosphatase 240 U/L (46-116); Anion Gap 8 (7-16); Aspartate Amino Transferase 108 U/L (0-34); BUN/Creatinine Ratio 15 Ratio (12-20); Bilirubin,Total 1.6 mg/dL (0.3-1.2); Blood Urea Nitrogen 21 mg/dL (9-23); Calcium 8.1 mg/dL (8.3-10.6); Carbon Dioxide 29.7 mMol/L (20.0-31.0); Chloride 101 mMol/L (98-107); Creatinine (Component) 1.4 mg/dL (0.6-1.3); Globulin 3.9 gm/dL (2.3-3.5); Glucose 92 mg/dL (74-106); Osmolality,Calculated 280 (275-295); Potassium 4.1 mMol/L (3.4-5.1); Sodium 139 mMol/L (136-145); Total Protein 6.8 gm/dL (5.7-8.2); eGFR 54 See Note
== END | disposition home or self-care (01) ==
PROVIDERS: PCP Family Medicine; Referring Provider Internal Medicine Nephrology; Visit Provider Internal Medicine Nephrology
DX: I12.9 Hypertensive chronic kidney disease with stage 1 through stage 4 chronic kidney disease, or unspecified chronic kidney disease (principal); N18.9 Chronic kidney disease, unspecified; D63.1 Anemia in chronic kidney disease
CPT/HCPCS: 36415; 80053; 85025

== ENCOUNTER → 2025-04-18 | Outpatient (CLI) | payer BC, SELFPAY ==
[2025-04-18 08:45] LABS: Basophils # (Auto) 0.1 Thou/mm3 (0.0-0.2); Basophils % (Auto) 0 % (0-2.5); Eosinophils # (Auto) 0.2 Thou/mm3 (0.0-0.5); Eosinophils % (Auto) 2 % (0-10); Hematocrit 42.8 % (41.0-53.0); Hemoglobin 14.3 g/dL (13.5-16.0); Immature Granulocytes % (Auto) 1 % (0-0); Immature Granulocytes Auto 0.06 Thou/mm3 (0.00-0.00); Lymphocytes # (Auto) 1.5 Thou/mm3 (1.0-4.8); Lymphocytes % (Auto) 12 % (10-50); Mean Corpuscular HGB Conc 33.4 g/dl (31.0-37.0); Mean Corpuscular Hemoglobin 29.5 pg (25.0-35.0); Mean Corpuscular Volume 88 fL (80-100); Monocytes # (Auto) 0.8 Thou/mm3 (0.0-0.8); Monocytes % (Auto) 6 % (0-12); Neutrophils # (Auto) 10.2 Thou/mm3 (1.8-7.7); Neutrophils % (Auto) 80 % (37-80); Nucleated Red Blood Cell % 0 /100 WBC (0); Platelet Count 184 Thou/mm3 (140-440); RDW Standard Deviation 60.1 fL (35.1-43.9); Red Blood Count 4.84 Miln/mm3 (4.50-5.90); White Blood Count 12.7 Thou/mm3 (3.8-10.6)
[2025-04-18 08:57] LABS: Alanine Aminotransferase 58 U/L (10-49); Albumin, Serum 2.9 gm/dL (3.4-4.8); Albumin/Globulin Ratio 0.7 (1.2-2.2); Alkaline Phosphatase 233 U/L (46-116); Anion Gap 9 (7-16); Aspartate Amino Transferase 134 U/L (0-34); BUN/Creatinine Ratio 16 Ratio (12-20); Bilirubin,Total 2.4 mg/dL (0.3-1.2); Blood Urea Nitrogen 26 mg/dL (9-23); Calcium 8.9 mg/dL (8.3-10.6); Calcium (Corrected) 9.8 mg/dL (8.5-10.1); Chloride 97 mMol/L (98-107); Creatinine (Component) 1.6 mg/dL (0.6-1.3); Globulin 4.1 gm/dL (2.3-3.5); Glucose 114 mg/dL (74-106); Osmolality,Calculated 272 (275-295); Potassium 4.4 mMol/L (3.4-5.1); Sodium 133 mMol/L (136-145); eGFR 46 See Note
== END | disposition home or self-care (01) ==
LOC: COPL 07:19
PROVIDERS: PCP Family Medicine; Referring Provider Family Medicine; Visit Provider Internal Medicine Nephrology
DX: I12.9 Hypertensive chronic kidney disease with stage 1 through stage 4 chronic kidney disease, or unspecified chronic kidney disease (principal); N18.9 Chronic kidney disease, unspecified; D63.1 Anemia in chronic kidney disease
CPT/HCPCS: 36415; 80053; 85025

== ENCOUNTER → 2025-05-02 | Outpatient (CLI) | payer BC, SELFPAY ==
[2025-05-02 08:39] LABS: Alanine Aminotransferase 57 U/L (10-49); Albumin, Serum 2.8 gm/dL (3.4-4.8); Albumin/Globulin Ratio 0.6 (1.2-2.2); Alkaline Phosphatase 225 U/L (46-116); Anion Gap 10 (7-16); Aspartate Amino Transferase 134 U/L (0-34); BUN/Creatinine Ratio 15 Ratio (12-20); Bilirubin,Total 3.1 mg/dL (0.3-1.2); Blood Urea Nitrogen 30 mg/dL (9-23); Calcium 8.5 mg/dL (8.3-10.6); Calcium (Corrected) 9.5 mg/dL (8.5-10.1); Carbon Dioxide 26.8 mMol/L (20.0-31.0); Cardiac Risk Estimate 5.5 RATIO (4.0-6.7); Chloride 100 mMol/L (98-107); Cholesterol 177 mg/dL (132-200); Creatinine (Component) 2.0 mg/dL (0.6-1.3); Globulin 4.5 gm/dL (2.3-3.5); Glucose 120 mg/dL (74-106); HDL Cholesterol 32 mg/dL (40-60); LDL Cholesterol,Calculated 120 mg/dL (0-130); Osmolality,Calculated 281 (275-295); Potassium 4.1 mMol/L (3.4-5.1); Sodium 137 mMol/L (136-145); Total Protein 7.3 gm/dL (5.7-8.2); Triglycerides 127 mg/dL (30-150); eGFR 35 See Note
[2025-05-02 09:16] LABS: Glucose Estimated Average 91 mg/dL (80-131); Hemoglobin A1C 4.8 % Hgb (4.8-6.0)
[2025-05-02 09:24] LABS: Basophils # (Auto) 0.0 Thou/mm3 (0.0-0.2); Basophils % (Auto) 0 % (0-2.5); Eosinophils # (Auto) 0.1 Thou/mm3 (0.0-0.5); Eosinophils % (Auto) 1 % (0-10); Hematocrit 43.6 % (41.0-53.0); Hemoglobin 14.6 g/dL (13.5-16.0); Immature Granulocytes Auto 0.06 Thou/mm3 (0.00-0.00); Lymphocytes # (Auto) 1.4 Thou/mm3 (1.0-4.8); Lymphocytes % (Auto) 13 % (10-50); Mean Corpuscular HGB Conc 33.5 g/dl (31.0-37.0); Mean Corpuscular Hemoglobin 30.4 pg (25.0-35.0); Mean Corpuscular Volume 91 fL (80-100); Monocytes # (Auto) 0.9 Thou/mm3 (0.0-0.8); Monocytes % (Auto) 8 % (0-12); Neutrophils # (Auto) 8.9 Thou/mm3 (1.8-7.7); Neutrophils % (Auto) 78 % (37-80); Nucleated Red Blood Cell # 0.00 Thou/mm3 (0.00-0.00); Nucleated Red Blood Cell % 0 /100 WBC (0); Platelet Count 191 Thou/mm3 (140-440); RDW Standard Deviation 60.3 fL (35.1-43.9); Red Blood Count 4.80 Miln/mm3 (4.50-5.90); White Blood Count 11.3 Thou/mm3 (3.8-10.6)
== END | disposition home or self-care (01) ==
LOC: COPL 07:08
PROVIDERS: PCP Family Medicine; Referring Provider Internal Medicine Nephrology; Visit Provider Internal Medicine Nephrology
DX: I12.9 Hypertensive chronic kidney disease with stage 1 through stage 4 chronic kidney disease, or unspecified chronic kidney disease (principal); E11.22 Type 2 diabetes mellitus with diabetic chronic kidney disease; N18.9 Chronic kidney disease, unspecified; D63.1 Anemia in chronic kidney disease; E78.5 Hyperlipidemia, unspecified
CPT/HCPCS: 36415; 80053; 80061; 83036; 85025

== ENCOUNTER → 2025-05-16 | Outpatient (CLI) | payer BC, SELFPAY ==
[2025-05-16 08:29] LABS: Basophils # (Auto) 0.1 Thou/mm3 (0.0-0.2); Basophils % (Auto) 1 % (0-2.5); Eosinophils # (Auto) 0.2 Thou/mm3 (0.0-0.5); Eosinophils % (Auto) 1 % (0-10); Hematocrit 43.3 % (41.0-53.0); Hemoglobin 14.3 g/dL (13.5-16.0); Immature Granulocytes Auto 0.04 Thou/mm3 (0.00-0.00); Lymphocytes # (Auto) 1.6 Thou/mm3 (1.0-4.8); Lymphocytes % (Auto) 13 % (10-50); Mean Corpuscular HGB Conc 33.0 g/dl (31.0-37.0); Mean Corpuscular Hemoglobin 30.5 pg (25.0-35.0); Mean Corpuscular Volume 92 fL (80-100); Monocytes # (Auto) 0.9 Thou/mm3 (0.0-0.8); Monocytes % (Auto) 8 % (0-12); Neutrophils # (Auto) 9.3 Thou/mm3 (1.8-7.7); Neutrophils % (Auto) 77 % (37-80); Nucleated Red Blood Cell # 0.00 Thou/mm3 (0.00-0.00); Nucleated Red Blood Cell % 0 /100 WBC (0); Platelet Count 182 Thou/mm3 (140-440); RDW Standard Deviation 57.9 fL (35.1-43.9); Red Blood Count 4.69 Miln/mm3 (4.50-5.90); White Blood Count 12.1 Thou/mm3 (3.8-10.6)
[2025-05-16 08:40] LABS: Carbon Dioxide 30.0 mMol/L (20.0-31.0); Chloride 101 mMol/L (98-107); Potassium 4.9 mMol/L (3.4-5.1); Sodium 140 mMol/L (136-145)
[2025-05-16 08:41] LABS: Alanine Aminotransferase 54 U/L (10-49); Albumin, Serum 2.8 gm/dL (3.4-4.8); Albumin/Globulin Ratio 0.7 (1.2-2.2); Alkaline Phosphatase 218 U/L (46-116); Anion Gap 9 (7-16); Aspartate Amino Transferase 122 U/L (0-34); BUN/Creatinine Ratio 9 Ratio (12-20); Bilirubin,Total 2.3 mg/dL (0.3-1.2); Blood Urea Nitrogen 23 mg/dL (9-23); Calcium 9.3 mg/dL (8.3-10.6); Calcium (Corrected) 10.3 mg/dL (8.5-10.1); Creatinine (Component) 2.6 mg/dL (0.6-1.3); Globulin 4.1 gm/dL (2.3-3.5); Glucose 119 mg/dL (74-106); Magnesium 2.0 mg/dL (1.6-2.6); Osmolality,Calculated 284 (275-295); Total Protein 6.9 gm/dL (5.7-8.2); eGFR 26 See Note
== END | disposition home or self-care (01) ==
LOC: COPL 07:15
PROVIDERS: PCP Family Medicine
DX: D64.9 Anemia, unspecified (principal); N18.30 Chronic kidney disease, stage 3 unspecified
CPT/HCPCS: 36415; 80053; 83735; 85025

== ENCOUNTER → 2025-05-30 | Outpatient (CLI) | payer BC, SELFPAY ==
[2025-05-30 12:10] LABS: Basophils # (Auto) 0.0 Thou/mm3 (0.0-0.2); Basophils % (Auto) 0 % (0-2.5); Eosinophils # (Auto) 0.0 Thou/mm3 (0.0-0.5); Eosinophils % (Auto) 0 % (0-10); Hematocrit 36.8 % (41.0-53.0); Hemoglobin 12.9 g/dL (13.5-16.0); Immature Granulocytes Auto 0.07 Thou/mm3 (0.00-0.00); Lymphocytes # (Auto) 1.1 Thou/mm3 (1.0-4.8); Lymphocytes % (Auto) 9 % (10-50); Mean Corpuscular HGB Conc 35.1 g/dl (31.0-37.0); Mean Corpuscular Hemoglobin 30.8 pg (25.0-35.0); Mean Corpuscular Volume 88 fL (80-100); Monocytes # (Auto) 0.9 Thou/mm3 (0.0-0.8); Monocytes % (Auto) 7 % (0-12); Neutrophils # (Auto) 10.3 Thou/mm3 (1.8-7.7); Neutrophils % (Auto) 83 % (37-80); Nucleated Red Blood Cell # 0.00 Thou/mm3 (0.00-0.00); Nucleated Red Blood Cell % 0 /100 WBC (0); Platelet Count 183 Thou/mm3 (140-440); RDW Standard Deviation 49.1 fL (35.1-43.9); Red Blood Count 4.19 Miln/mm3 (4.50-5.90); White Blood Count 12.5 Thou/mm3 (3.8-10.6)
[2025-05-30 12:46] LABS: Alanine Aminotransferase 133 U/L (10-49); Albumin, Serum 2.4 gm/dL (3.4-4.8); Albumin/Globulin Ratio 0.6 (1.2-2.2); Alkaline Phosphatase 144 U/L (46-116); Anion Gap 16 (7-16); Aspartate Amino Transferase 264 U/L (0-34); BUN/Creatinine Ratio 11 Ratio (12-20); Bilirubin,Total 3.6 mg/dL (0.3-1.2); Blood Urea Nitrogen 84 mg/dL (9-23); Calcium 8.5 mg/dL (8.3-10.6); Calcium (Corrected) 9.8 mg/dL (8.5-10.1); Carbon Dioxide 22.5 mMol/L (20.0-31.0); Chloride 98 mMol/L (98-107); Creatinine (Component) 7.6 mg/dL (0.6-1.3); Globulin 3.9 gm/dL (2.3-3.5); Glucose 96 mg/dL (74-106); Magnesium 2.1 mg/dL (1.6-2.6); Osmolality,Calculated 297 (275-295); Potassium 4.2 mMol/L (3.4-5.1); Sodium 136 mMol/L (136-145); Total Protein 6.3 gm/dL (5.7-8.2); eGFR 7 See Note
== END | disposition home or self-care (01) ==
PROVIDERS: PCP Family Medicine; Referring Provider Internal Medicine Nephrology; Visit Provider Internal Medicine Nephrology
DX: I12.9 Hypertensive chronic kidney disease with stage 1 through stage 4 chronic kidney disease, or unspecified chronic kidney disease (principal); N18.4 Chronic kidney disease, stage 4 (severe); D63.1 Anemia in chronic kidney disease
CPT/HCPCS: 36415; 80053; 83735; 85025

== ENCOUNTER 2025-06-01 11:36 | Inpatient (IN) | payer BC, MEDICARE, SELFPAY ==
[2025-06-01] VITALS (72 sets, daily range): BP systolic 61–122; BP diastolic 41–72; PULSE 0–98; RESP 7–96; TEMP 36.4–36.6; O2SAT 93–100; BMI 27.3
--- NOTE | 2025-06-01 11:56 | EKG_ITS ---
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
--- NOTE | 2025-06-01 11:58 | EDNOTE_ITS ---
<Statement entered by Lynette Bautista MD - 06/02/25 09:35> As co-signing physician, I was present and available for consult prn. I concur with the plan and care as documented by the midlevel provider. ED GI Bleed RME/HPI General Chief complaint: GI Bleed Stated complaint: Heavy rectal bleeding today Time Seen by Provider: 06/01/25 11:41 Arrival date/time: 06/01/25 11:36 RME / HPI RME / HPI Narrative: 69-year-old male patient with significant history of nonischemic cardiomyopathy, pulmonary hypertension, HFrEF ejection fraction 25%, pacemaker follows up with senior data developer Dr. Craig, chronic A-fib, diabetes mellitus, hypotension, liver cirrhosis, secondary to alcohol abuse, came in for evaluation regarding not feeling well. Patient's been having dizziness, falling a lot, last fall was 5 days ago resulting into multiple bruising on the abdomen and back. Patient is also complaining of dark red stool for at least 2 weeks now, getting worse for the last few days. Patient denies any no headache no neck pain no chest pain no abdominal pain. Patient is not taking any blood thinner. In the triage patient blood pressure was noted on the low 80s systolic. Related Data Home Medications ?Medication ?Instructions ?Recorded ?Confirmed amiodarone 200 mg tablet 200 mg PO BID 02/26/2106/01 bumetanide 0.5 mg tablet 0.5 mg PO QDAY 06/01/2504/20 midodrine 5 mg tablet 10 mg PO BID 06/01/25 sacubitril 24 mg-valsartan 26 mg 1 tab PO BID 06/01/25 06/01/25 tablet (Entresto) sacubitril 24 mg-valsartan 26 mg 1 tab PO BID 06/01/25 06/01/25 tablet (Entresto) spironolactone 25 mg tablet 25 mg PO QDAY 06/01/2504/20 Allergies Allergy/AdvReac Type Severity Reaction Status Date / Time No Known Allergies Allergy Verified 06/01/25 11:40 Review of Systems Review of Systems Narrative Review of Systems: Review of system reviewed and within normal limits except mentioned in HPI ED Exam Narrative Physical exam: VITAL SIGNS: Reviewed. GENERAL APPEARANCE: Alert and interactive, follows commands, no acute distress, HEAD AND FACE: Non-traumatic. ENT: PERRL, pale conjunctiva, eyelid no trauma, Mucous membrane moist. NECK: Supple, nontender, no nuchal rigidity. CHEST: No tenderness, no crepitus, no paradoxical movement, no retractions. LUNGS: Clear, well ventilated, symmetric, no rales, no wheezing, no ronchi, no stridor, good breath sounds bilaterally. HEART: Regular rate, regular rhythm, no murmur, no gallops. ABDOMEN: Soft, positive bowel sounds, nondistended, no guarding, globular, no rebound, no masses, with multiple ecchymosis noted on the abdomen buttocks and back, nontender RECTAL: Deferred. GENITAL: Deferred. NEUROLOGICAL: Gross motor function intact sensory function intact, Appropriate for age. MUSCULOSKELETAL: low back nontender, full range of motion. EXTREMITIES: Nontender, full range of motion. SKIN: Color pale, dry, no rash, no lacerations, no abrasions, no contusions. LYMPHATICS: Deferred. Course Quality Measures none Orders Category Date Time Status Blood Sugar Check-Sandostatin Q6HR Care 06/01/25 12:22 Active EKG (ED ONLY) *Do not use* NOW Care 06/01/25 11:56 Completed Bain [Urinary Catheter] QS Care 06/01/25 13:03 Active Insert IV NOW Care 06/01/25 12:02 Active Occult Blood,Stool (Nursing) NOW Care 06/01/25 11:56 Active Consult to Gastroenterology Stat Cons 06/01/25 14:15 Ordered Consult to Nephrology Stat Cons 06/01/25 14:[address] chest abdomen pelvis wo Stat Exams 06/01/25 13:04 Completed EKG (ED Only) Stat Exams 06/01/25 11:56 Draft XR chest 1V portable Stat Exams 06/01/25 12:50 Completed ABG [Arterial Blood Gas] Stat Lab 06/01/25 13:40 Completed BNP [B-Type Natriuretic Peptide] Stat Lab 06/01/25 12:06 Completed CBC Stat Lab 06/01/25 12:06 Completed Comprehensive Metabolic Panel Stat Lab 06/01/25 12:06 Completed Lactate (Lactic Acid) Stat Lab 06/01/25 15:08 Completed Magnesium Stat Lab 06/01/25 12:06 Completed Occult Blood, Stool (LAB) Stat Lab 06/01/25 12:20 Completed Partial Thromboplastin Time Stat Lab 06/01/25 12:06 Completed Prothrombin Time with INR Stat Lab 06/01/25 12:06 Completed Troponin I Stat Lab 06/01/25 12:06 Completed Type and Screen Stat Lab 06/01/25 12:06 Completed Urinalysis Stat Lab 06/01/25 13:20 Completed Albumin Human 25% Ivpb [Albuminar-25 Ivpb] Med 06/01/25 15:00 Discontinued 12.5 gm in 50 ml IV X1 Albumin Human 25% Ivpb [Albuminar-25 Ivpb] Med 06/01/25 15:01 Discontinued 12.5 gm in 50 ml IV X1 Azithromycin Inj [Zithromax Inj] 500 mg Med 06/01/25 13:21 Discontinued Sodium Chloride 0.9% 250 ml [Ns] 250 ml IV X1 Midodrine [Proamatine] Med 06/01/25 12:37 Discontinued 10 mg PO X1 ONE Octreotide Acet Inj [SandoSTATIN Inj] Med 06/01/25 11:56 Discontinued 50 mcg IV X1 ONE Pantoprazole Inj [Protonix Inj] Med 06/01/25 11:56 Discontinued 80 mg IVP X1 ONE Ringers Lactated 1000 ml [Lactated Ringers] 1,000 ml Med 06/01/25 14:05 Active IV 100 mls/hr Ringers Lactated 1000 ml [Lactated Ringers] 1,000 ml Med 06/01/25 11:57 Discontinued IV 999 mls/hr Ringers Lactated 1000 ml [Lactated Ringers] 1,000 ml Med 06/01/25 12:51 Discontinued IV 999 mls/hr Ringers Lactated 1000 ml [Lactated Ringers] 1,000 ml Med 06/01/25 14:14 Discontinued IV 999 mls/hr Sodium Chloride 0.9% [Ns] 100 ml Med 06/01/25 12:00 Active Octreotide Acet Inj [SandoSTATIN Inj] 1,000 mcg IV 50 mcg/hr Sodium Chloride 0.9% [Ns] 100 ml Med 06/02/25 08:00 Active Octreotide Acet Inj [SandoSTATIN Inj] 1,000 mcg IV 50 mcg/hr cefTRIAXone/D5w 1gm IV premix [Rocephin/D5w 1gm IV Med 06/01/25 13:20 Discontinued premix] 1 gm in 50 ml IV X1 Vital Signs Vital signs: Vital Signs Temperature 97.8 F 06/01/25 11:41 Pulse Rate 79 06/01/25 11:41 Respiratory Rate 18 06/01/25 11:41 Blood Pressure 79/50 L 06/01/25 11:41 Pulse Oximetry (%) 98 06/01/25 11:41 Oxygen Delivery Method Room Air 06/01/25 11:41 GI Bleed MDM Narrative MDM Narrative:: 69-year-old male patient with significant history of nonischemic cardiomyopathy, pulmonary hypertension, HFrEF ejection fraction 25%, pacemaker follows up with senior data developer Dr. Craig, chronic A-fib, diabetes mellitus, hypotension, liver cirrhosis, secondary to alcohol abuse, came in for evaluation regarding not feeling well. Patient's been having dizziness, falling a lot, last fall was 5 days ago resulting into multiple bruising on the abdomen and back. Patient is also complaining of dark red stool for at least 2 weeks now, getting worse for the last few days. Patient denies any no headache no neck pain no chest pain no abdominal pain. Patient is not taking any blood thinner. In the triage patient blood pressure was noted on the low 80s systolic. Rectal exam was done by me and showed melanotic stool strongly positive for occult blood. Patient's hemoglobin was noted to be 13.6 hematocrit of 39.2 patient has significant total bili of 4.1 and elevated AST ALT and alkaline phos . CT chest abdomen pelvis showed Significant bibasilar pneumonia Cirrhosis Significant ascites Urinary bladder wall thickening, cystitis would be included in the differential Mild rectal wall thickening, consider proctitis, rectal tumor less likely but not excluded, recommend direct inspection EKG showed paced rhythm, ventricular rate of 77 bpm, no ST segment elevation depression noted. Patient received 3 L of IV fluids bolus, and still having blood pressure on the mid 70s systolic. Patient also received IV ceftriaxone and IV Zithromax. Started on Levophed. Bain catheter was inserted, draining only 50 cc. Patient was also given midodrine 10 mg p.o. x [address] Logan, discussed the case, and thank you Dr. Logan I consulted Dr. Munoz, exercise physiologist, suggest to give patient a total of 3 L IV bolus and started patient on IV fluids at 100 cc an hour. Discussed the case with dental tech, Dr. Nash, who accepted the admission to ICU Patient data External records reviewed:: [facility] previous records Clinical information provided by:: patient Social determinants that could affect healthcare access:: none Patient has the following chronic illnesses:: Ischemic cardiomyopathy, EF of 25, congestive heart failure, chronic A-fib, hypotension diabetes mellitus, liver cirrhosis How is presenting disease/condition affected by chronic disease/condition?: caused by Evaluation data The following diagnostics were reviewed and interpreted by me:: lab results, radiology exam(s) and EKG tracing(s) Lab and/or radiology exams considered but not ordered:: None Interpretation Summary: See results MDM Medications / Prescriptions Medications or Prescriptions considered but not ordered:: None Medication administrations:: Medication Administration History Acetaminophen (Acetaminophen 325 Mg Tablet) 650 mg PO Q4HR PRN PRN Reason: PAIN SCALE 1-3 (mild Stop: 07/01/25 15:19 Acetaminophen (Acetaminophen Supp 650 Mg Supp) 650 mg IA Q4HR PRN PRN Reason: PAIN SCALE 1-3 (mild Stop: 07/01/25 15:19 Octreotide Acetate 1,000 mcg/ (Sodium Chloride) 102 mls @ 5.1 mls/hr IV .Q20H HERMELINDA; Protocol Stop: 06/06/25 12:00 Octreotide Acetate 1,000 mcg/ (Sodium Chloride) 102 mls @ 5.1 mls/hr IV .Q20H HERMELINDA; Protocol Stop: 06/02/25 07:59 Last Admin: 06/01/25 12:20 Dose: 50 mcg/hr, 5.1 mls/hr Documented By: BRISEYDA Lactated Ringer's (Lactated Ringers) 1,000 mls @ 100 mls/hr IV .Q10H HERMELINDA Stop: 07/01/25 14:04 Last Admin: 06/01/25 15:31 Dose: 100 mls/hr Documented By: SRINI Piperacillin Sod/Tazobactam (Sod 2.25 gm/ Sodium Chloride) 50 mls @ 100 mls/hr IV Q8HR HERMELINDA Stop: 06/08/25 15:44 Last Admin: 06/01/25 21:33 Dose: 100 mls/hr Documented By: Infusion: 06/01/25 17:15 Dose: Infused Documented By: Admin: 06/01/25 16:38 Dose: 100 mls/hr Documented By: BRISEYDA Norepinephrine/Dextrose (Levophed In D5w 8mg/250ml) 8 mg in 250 mls @ 6.974 mls/hr IV .Q24H PRN; Protocol PRN Reason: PER PROTOCOL Stop: 07/01/25 15:38 Last Titration: 06/01/25 17:45 Dose: 0.17 mcg/kg/min, 23.711 mls/hr Documented By: Titration: 06/01/25 17:40 Dose: 0.17 mcg/kg/min, 23.711 mls/hr Documented By: Titration: 06/01/25 17:35 Dose: 0.15 mcg/kg/min, 20.922 mls/hr Documented By: Titration: 06/01/25 17:30 Dose: 0.15 mcg/kg/min, 20.922 mls/hr Documented By: Titration: 06/01/25 17:25 Dose: 0.13 mcg/kg/min, 18.132 mls/hr Documented By: Titration: 06/01/25 17:20 Dose: 0.11 mcg/kg/min, 15.343 mls/hr Documented By: Titration: 06/01/25 17:10 Dose: 0.09 mcg/kg/min, 12.553 mls/hr Documented By: Titration: 06/01/25 16:25 Dose: 0.07 mcg/kg/min, 9.764 mls/hr Documented By: Titration: 06/01/25 16:20 Dose: 0.07 mcg/kg/min, 9.764 mls/hr Documented By: Titration: 06/01/25 16:05 Dose: 0.05 mcg/kg/min, 6.974 mls/hr Documented By: Admin: 06/01/25 15:55 Dose: 0.05 mcg/kg/min, 6.974 mls/hr Documented By: DB Albumin Human (Albuminar-25 Ivpb) 25 gm in 100 mls @ 100 mls/hr IV QDAY HERMELINDA Stop: 06/04/25 19:12 Midodrine (Midodrine 5 Mg Tablet) 10 mg PO TID HERMELINDA Stop: 07/01/25 21:59 Last Admin: 06/01/25 21:32 Dose: 10 mg Documented By: Pantoprazole Sodium (Pantoprazole Inj 40 Mg Vial) 40 mg IVP BID HERMELINDA Stop: 07/01/25 20:59 Last Admin: 06/01/25 21:33 Dose: 40 mg Documented By: RH Discontinued Medications Lactated Ringer's (Lactated Ringers) 1,000 mls @ 999 mls/hr IV .Q1H1M ONE Stop: 06/01/25 12:57 Last Infusion: 06/01/25 12:52 Dose: Infused Documented By: Admin: 06/01/25 12:05 Dose: 999 mls/hr Documented By: BRISEYDA Lactated Ringer's (Lactated Ringers) 1,000 mls @ 999 mls/hr IV .Q1H1M ONE Stop: 06/01/25 13:51 Last Infusion: 06/01/25 13:58 Dose: Infused Documented By: Admin: 06/01/25 13:01 Dose: 999 mls/hr Documented By: BRISEYDA Ceftriaxone Sodium/Dextrose (Rocephin/D5w 1gm Iv Premix) 1 gm in 50 mls @ 100 mls/hr IV X1 ONE Stop: 06/01/25 13:49 Last Infusion: 06/01/25 14:12 Dose: Infused Documented By: Admin: 06/01/25 13:42 Dose: 100 mls/hr Documented By: BRISEYDA Azithromycin 500 mg/ Sodium (Chloride) 250 mls @ 250 mls/hr IV X1 ONE Stop: 06/01/25 14:20 Last Infusion: 06/01/25 15:40 Dose: Infused Documented By: Admin: 06/01/25 14:17 Dose: 250 mls/hr Documented By: BRISEYDA Lactated Ringer's (Lactated Ringers) 1,000 mls @ 999 mls/hr IV .Q1H1M ONE Stop: 06/01/25 15:14 Last Infusion: 06/01/25 15:40 Dose: Infused Documented By: Admin: 06/01/25 14:19 Dose: 999 mls/hr Documented By: BRISEYDA Albumin Human (Albuminar-25 Ivpb) 12.5 gm in 50 mls @ 50 mls/hr IV X1 ONE Stop: 06/01/25 15:59 Last Infusion: 06/01/25 16:19 Dose: Infused Documented By: Admin: 06/01/25 15:17 Dose: 50 mls/hr Documented By: SRINI Albumin Human (Albuminar-25 Ivpb) 12.5 gm in 50 mls @ 50 mls/hr IV X1 ONE Stop: 06/01/25 16:00 Last Infusion: 06/01/25 16:20 Dose: Infused Documented By: Admin: 06/01/25 15:31 Dose: 50 mls/hr Documented By: TM Norepinephrine Bitartrate (Levophed In Ns 16mg/250ml) 16 mg in 250 mls @ 3.487 mls/hr IV .Q24H PRN; Protocol PRN Reason: PER protocol Stop: 07/01/25 15:32 Albumin Human (Albuminar-25 Ivpb) 25 gm in 100 mls @ 100 mls/hr IV X1 ONE Stop: 06/01/25 20:13 Last Infusion: 06/01/25 21:42 Dose: Infused Documented By: Admin: 06/01/25 19:36 Dose: 100 mls/hr Documented By: TABATHA Midodrine (Midodrine 5 Mg Tablet) 10 mg PO X1 ONE Stop: 06/01/25 12:38 Last Admin: 06/01/25 12:59 Dose: 10 mg Documented By: BRISEYDA Octreotide Acetate (Octreotide Acet Inj 50 Mcg/Ml Vial) 50 mcg IV X1 ONE Stop: 06/01/25 11:57 Last Admin: 06/01/25 12:14 Dose: 50 mcg Documented By: BRISEYDA Pantoprazole Sodium (Pantoprazole Inj 40 Mg Vial) 80 mg IVP X1 ONE Stop: 06/01/25 11:57 Last Admin: 06/01/25 12:12 Dose: 80 mg Documented By: BRISEYDA Sodium Chloride (Sodium Chloride Rt 10% 15 Ml Nebu) 5 ml INH X1 ONE Stop: 06/01/25 15:42 IV fluids total of 3 L, Sandostatin IV, Protonix IV, Sandostatin drip, Levophed, Zithromax IV and ceftriaxone IV Consultations Consultation(s) initiated? (list below): Yes Consultation #1 (Physician, Specialty, Details): Dr. Logan GI specialist on-call Consultation #2 (Physician, Specialty, Details): Dr. Munoz exercise physiologist of the patient Diagnosis GI bleed differential diagnosis: infectious diarrhea, esophageal varices and Upper gastrointestinal hemorrhage Most likely diagnosis given after review of the tests above:: Hypotension severe, upper GI bleed Admission Indicated Admission indicated?: not indicated Admission Request Was there a request for admission?: Yes Admission Attestation Admission request attestation: Discussed case with [Dr Nash ] [facility] Hospitalist service regarding admission. Discussed patients ED course, exam findings, labs, and radiology results. The Hospitalist [agrees to accept the patient for admission. Disposition Plan Disposition Plan: Admit Discharge Plan Plan Patient Disposition: Admit Acute Care w/in Hospital Discharge Disposition comment: [id number] Problem List Clinical Impression: Acute upper GI bleed, Severe hypotension
[2025-06-01] MEDS: RINGERS LACTATED 1000 ML 1,000 ML 999 ML IV ×3 (12:05→14:19)
[2025-06-01] MEDS: OCTREOTIDE ACET INJ 50 mCg/ML VIAL IV (12:14)
[2025-06-01] MEDS: OCTREOTIDE ACET INJ 1,000 MCG in SODIUM CHLORIDE 0.9% 100 ML 5.1 MCG IV (12:20)
[2025-06-01 12:28] LABS: Basophils # (Auto) 0.0 Thou/mm3 (0.0-0.2); Basophils % (Auto) 0 % (0-2.5); Eosinophils # (Auto) 0.0 Thou/mm3 (0.0-0.5); Eosinophils % (Auto) 0 % (0-10); Hematocrit 39.2 % (41.0-53.0); Hemoglobin 13.6 g/dL (13.5-16.0); Immature Granulocytes Auto 0.07 Thou/mm3 (0.00-0.00); Lymphocytes # (Auto) 0.8 Thou/mm3 (1.0-4.8); Lymphocytes % (Auto) 6 % (10-50); Mean Corpuscular HGB Conc 34.7 g/dl (31.0-37.0); Mean Corpuscular Hemoglobin 30.4 pg (25.0-35.0); Mean Corpuscular Volume 88 fL (80-100); Monocytes # (Auto) 0.6 Thou/mm3 (0.0-0.8); Monocytes % (Auto) 5 % (0-12); Neutrophils # (Auto) 10.9 Thou/mm3 (1.8-7.7); Neutrophils % (Auto) 88 % (37-80); Nucleated Red Blood Cell # 0.00 Thou/mm3 (0.00-0.00); Nucleated Red Blood Cell % 0 /100 WBC (0); Platelet Count 196 Thou/mm3 (140-440); RDW Standard Deviation 50.4 fL (35.1-43.9); Red Blood Count 4.47 Miln/mm3 (4.50-5.90); White Blood Count 12.4 Thou/mm3 (3.8-10.6)
--- NOTE | 2025-06-01 12:50 | XR_ITS ---
Examination: AP chest single view Technique one AP portable upright chest single view Date and time: June 01, 2025 1259 hours Comparison September 26, 2024 INDICATIONS: Shortness of breath chest pain today. FINDINGS: Bilateral perihilar opacity consistent with pneumonia Normal heart size Cardiac leads satisfactory position Mild to moderate elevation right hemidiaphragm Moderate osteopenia IMPRESSION: Bilateral pneumonia
[2025-06-01 12:51] LABS: Alanine Aminotransferase 112 U/L (10-49); Albumin, Serum 2.6 gm/dL (3.4-4.8); Albumin/Globulin Ratio 0.6 (1.2-2.2); Alkaline Phosphatase 195 U/L (46-116); Anion Gap 19 (7-16); Aspartate Amino Transferase 168 U/L (0-34); BUN/Creatinine Ratio 12 Ratio (12-20); Bilirubin,Total 4.1 mg/dL (0.3-1.2); Blood Urea Nitrogen 89 mg/dL (9-23); Calcium 8.4 mg/dL (8.3-10.6); Calcium (Corrected) 9.5 mg/dL (8.5-10.1); Carbon Dioxide 20.3 mMol/L (20.0-31.0); Chloride 97 mMol/L (98-107); Creatinine (Component) 7.2 mg/dL (0.6-1.3); Estimated Creatinine Clearance 9.1 mL/min (>60); Globulin 4.1 gm/dL (2.3-3.5); Glucose 151 mg/dL (74-106); Magnesium 2.4 mg/dL (1.6-2.6); Osmolality,Calculated 302 (275-295); Potassium 3.9 mMol/L (3.4-5.1); Sodium 136 mMol/L (136-145); Total Protein 6.7 gm/dL (5.7-8.2); eGFR 8 See Note
[2025-06-01 12:54] LABS: INR 1.6 (0.9-1.3); Partial Thromboplastin Time 28.6 Seconds (22.0-36.0); Prothrombin Time 16.9 Seconds (9.0-12.2)
[2025-06-01 12:56] LABS: Troponin I 0.223 ng/mL (0.0-0.045)
[2025-06-01] MEDS: MIDODRINE 5 MG TABLET 10 MG PO ×2 (12:59→21:32)
--- NOTE | 2025-06-01 13:04 | XR_ITS ---
Examination: CT chest, without intravenous contrast. CT abdomen, without intravenous contrast. CT pelvis, without intravenous contrast. 2-D sagittal and coronal reconstructions. 3-D reconstructions. Date and time of exam:June 01, 2025, [address] chest November 16, 2020 INDICATIONS: Shortness of breath, acute renal insufficiency, rectal bleeding today CTDI vol (mgy) 8.72 DLP (MGycm)666 Technique: Multiple CT images, 3.0 mm slice thickness, obtained chest, abdomen, pelvis, with the high-resolution 64 slice scanner.. Sagittal and coronal 2-D reconstructions are obtained. 3-D reconstructions Low dose protocols were performed. One or more of the following dose reduction techniques were used; automated exposure control, adjustment of the mA and/or KV according to patient size, use of iterative reconstruction technique. Findings: No thoracic aortic aneurysm dilatation Pulmonary artery segments are not enlarged Mild enlargement cardiac contour Significant bibasilar pneumonia Cirrhosis, liver nodular in contour with prominent ascites Splenomegaly 13 cm No pancreatic mass Aorta normal size. No hydronephrosis The appendix appears partially visualized not enlarged 30 mm fluid-containing abdominal hernia No bowel obstruction Urinary Bain catheter with bladder contracted around the catheter Urinary bladder wall thickening up to 17 mm No significant prostatomegaly Diffuse wall thickening involving the rectum image 307 Fat-containing inguinal hernias Severe osteopenia IMPRESSION: Significant bibasilar pneumonia Cirrhosis Significant ascites Urinary bladder wall thickening, cystitis would be included in the differential Mild rectal wall thickening, consider proctitis, rectal tumor less likely but not excluded, recommend direct inspection
[2025-06-01 13:09] LABS: OBS Card Lot # 0124; OBS Developer Lot # 0424; OBS Performed By BOTED; OBS QC OK? Yes; Occult Blood, Stool Positive (Negative)
[2025-06-01 13:25] LABS: Collection Type, Urine Clean Catch
[2025-06-01 13:42] LABS: B-Type Natriuretic Peptide 439 pg/mL (0-100)
[2025-06-01] MEDS: cefTRIAXone/D5w 1gm IV premix 1 GM/50 ML BAG IV (13:42)
[2025-06-01 13:46] LABS: Base Excess -3 (-3-3); HCO3 20 mEq/L (20-26); Inspired Oxygen, FIO2 21 %; O2 Saturation 93 % (91-98); PCO2 29 mmHg (32.0-48.0); PO2 68 mmHg (83-108); pH, Arterial 7.44 (7.35-7.45)
[2025-06-01 13:48] LABS: Allen Test Not Performed; Puncture Site Left Radial
[2025-06-01 14:05] LABS: Bacteria,Urine Rare; Bilirubin,Urine Negative (Negative); Blood,Urine Negative (Negative); Color,Urine Yellow (Lt Yel-Yel); Glucose, Urine Negative (Negative); Ketones,Urine Negative (Negative); Leukocyte Esterase,Urine Negative (Negative); Nitrite,Urine Negative (Negative); PH,Urine 6.5 (5.0-7.0); Protein,Urine Trace (Neg - Trace); RBC,Urine 12 /hpf (0-3); Specific Gravity,Urine 1.015 (1.001-1.035); Squamous Epithelial Cell,Urine < 1 /hpf (0-5); Urobilinogen,Urine Negative mg/dL (0.0-1.0); WBC,Urine 164 /hpf (0-5)
[2025-06-01 14:07] LABS: Clarity,Urine Hazy (Clear/Hazy)
[2025-06-01] MEDS: AZITHROMYCIN INJ 500 MG in SODIUM CHLORIDE 0.9% 250 ML 250 ML 250 MG IV (14:17)
[2025-06-01 15:14] LABS: Lactate (Lactic Acid) 4.0 mMol/L (0.4-2.0)
[2025-06-01] MEDS: ALBUMIN HUMAN 25% IVPB 12.5 GM/50 ML BTL IV ×2 (15:17→15:31)
[2025-06-01] MEDS: RINGERS LACTATED 1000 ML 1,000 ML 100 ML IV (15:31)
[2025-06-01] MEDS: Norepinephrine/D5W 8mg/250ml 8 MG/250 ML BAG 6.974 MG IV (15:55)
[2025-06-01] MEDS: PIPERACILLIN/TAZO 2.25GM INJ 2.25 GM in SODIUM CHLORIDE 0.9% (Popper) 50 ML IV ×2 (16:38→21:33)
--- NOTE | 2025-06-01 16:46 | ESHP_ITS ---
<Statement entered by Petar Nash MD - 06/02/25 08:54> I reviewed the resident?s note and discussed the patients case and plan of care and agree with findings and plan as documented in the resident?s note. empiric abx given cirrhosis w/ no clear source of infx yet and LA >4 obtain imaging abd no abd pain - doubt SBT likely hypovolemic given loose stools, and on bp meds + diuretics cont w/ IVF + albumin + midodrine and Levo (HRS also on ddx) no evid of acute GIB protonix and octreotide for now Documentation for date of: 06/01/25 HPI History of Present Illness Chief complaint: Rectal bleeding, generalized weakness, diarrhea x 2 weeks History of present illness: Patient is a 69-year-old male with past medical history of nonischemic cardiomyopathy, afib (not on anticoagulation), group 2 pulmonary hypertension, HFrEF 40% s/p LINOLEUM TILE LAYER pacemaker, type 2 diabetes, and CKD who presented to the ED on 06/01/2025 with increasing rectal bleeding, overall weakness, and diarrhea which all began about 2 weeks ago. Patient reports that at first he has small blood- tinged diarrhea but the bleeding has increased to moreno red dripping output at times. He does have history of hemorrhoids but has not had this much bleeding previously. Patient currently follows up with Dr. Craig for cardiology and Dr. Munoz for nephrology. Patient last had a visit with Dr. Craig 3 weeks ago during which his Bumex dose was reduced to 0.5 mg daily due to worsening FEROZ. He had outpatient labs 2 days ago which showed FEROZ had worsened further to 7.6. Patient does report decreasing urine output. He otherwise denies any pain, including right upper quadrant pain, fevers, chills, sweats, nausea, vomiting, shortness of breath, or chest pain. ED workup showed hypotension to 79/50, with all other vitals normal. WBC slightly elevated at 12.4, Hgb 13.6, PT 16.9, INR 1.6. Chem panel showed BUN 89, creatinine 7.2, GFR 8. Osmolality 302. Lactic acid 4.0. Total bilirubin 4.1, AST 168, ALT 112, Alk phos 195. Troponin 0.223. BNP 439. Albumin 2.6. UA was negative. Stool occult positive for blood however no bloody BMs noted in ED. CXR showed thickened lower lobe interstitial lines suggestive of possible bilateral pneumonia. Patient was admitted to the ICU for hypovolemic shock in the setting of GI bleed. Past Medical History Past Medical History Comments H COMMENT: Past Medical History: Nonischemic cardiomyopathy, afib, group 2 pulmonary hypertension, HFrEF 40% s/p LINOLEUM TILE LAYER pacemaker, and CKD, previous history of type 2 diabetes however A1c 4.8 (likely falsely low) Family History: Father with history of CABG, mother with history of kidney disease, both parents with diabetes Surgical History: Ventral hernia repair Social History: Denies history of smoking, denies current alcohol use, last use being 13-14 years ago, average use states 2-3 drinks during the week and more on the weekends , denies recreational drug use. Lives at home with and grandson. Current Medications: Entresto 24-25 mg BID, spironolactone 25 mg qday, bumetanide 0.5 mg qday, midodrine 10 mg BID, amiodarone 200 mg BID (Source: Med bottles at bedside) Allergies: No known drug allergies Exam Vital Signs Temp Pulse Resp BP Pulse Ox O2 Del Method O2 Flow Rate 97.9 F 76 15 90/66 99 Nasal Cannula 2 06/01/25 16:11 06/01/25 16:35 06/01/25 16:35 06/01/25 16:35 06/01/25 16:35 06/01/25 16:11 06/01/25 16:11 Narrative Exam Physical Exam General: Awake and in no acute distress. Conversational however slightly withdrawn, chronically ill-appearing. HEENT: Normocephalic, atraumatic, mucous membranes moist. Mild bilateral scleral icterus present. Heart: Regular rate and rhythm, normal S1 and S2, no murmurs. Lungs: Clear to auscultation with no wheezing or crackles. Abdomen: Soft, distended abdomen with positive fluid wave, nontender, positive bowel sounds. ?No guarding or rebound tenderness. Neurologic: Alert and oriented x3, no gross neurological deficit, and patient able to move all 4 extremities. Extremities: No lower extremity edema. Skin: Scattered superficial ecchymoses throughout abdomen and arms. Shiny skin bilateral lower extremities. Results: Labs 06/02/25 04:40 06/01/25 20:14 Labs: Short CBC 06/01/25 Range/Units 12:06 WBC 12.4 H (3.8-10.6) Thou/mm3 Hgb 13.6 (13.5-16.0) g/dL Hct 39.2 L (41.0-53.0) % Plt Count 196 (140-440) Thou/mm3 BMP 06/01/25 12:06 Sodium 136 Potassium 3.9 Chloride 97 L Carbon Dioxide 20.3 BUN 89 H Creatinine 7.2 H* Glucose 151 H D Calcium 8.4 Cardiac Enzymes 06/01/25 Range/Units 12:06 Troponin I 0.223 H* (0.0-0.045) ng/mL Liver Function 06/01/25 Range/Units 12:06 Total Bilirubin 4.1 H D (0.3-1.2) mg/dL AST 168 H (0-34) U/L ALT 112 H (10-49) U/L Alkaline Phosphatase 195 H D (46-116) U/L Albumin 2.6 L (3.4-4.8) gm/dL Urine 06/01/25 Range/Units 13:20 Urine Color Yellow (Lt Yel-Yel) Urine Clarity Hazy (Clear/Hazy) Urine pH 6.5 (5.0-7.0) Ur Specific [place] 1.015 (1.001-1.035) Urine Protein Trace (Neg - Trace) Urine Glucose (UA) Negative (Negative) ABG Interpretation ABG results: 06/01/25 13:40 ABG pH 7.44 ABG pCO2 29 L ABG pO2 68 L ABG HCO3 20 ABG O2 Saturation 93 ABG Base Excess -3 Quality Measures Quality Measures none Advance care planning discussed with:: patient and spouse Medications Home Medications and Allergies Home Medications ?Medication ?Instructions ?Recorded ?Confirmed ?Type amiodarone 200 mg tablet 200 mg PO BID 02/26/2106/01 History bumetanide 0.5 mg tablet 0.5 mg PO QDAY 06/01/2504/20 History midodrine 5 mg tablet 10 mg PO BID 06/01/25 History sacubitril 24 mg-valsartan 26 mg 1 tab PO BID 06/01/25 06/01/25 History tablet (Entresto) sacubitril 24 mg-valsartan 26 mg 1 tab PO BID 06/01/25 06/01/25 History tablet (Entresto) spironolactone 25 mg tablet 25 mg PO QDAY 06/01/2504/20 History Allergies Allergy/AdvReac Type Severity Reaction Status Date / Time No Known Allergies Allergy Verified 06/01/25 11:40 Visit Medications Acetaminophen (Acetaminophen 325 Mg Tablet) 650 mg PO Q4HR PRN PRN Reason: PAIN SCALE 1-3 (mild Stop: 07/01/25 15:19 Acetaminophen (Acetaminophen Supp 650 Mg Supp) 650 mg ND Q4HR PRN PRN Reason: PAIN SCALE 1-3 (mild Stop: 07/01/25 15:19 Octreotide Acetate 1,000 mcg/ (Sodium Chloride) 102 mls @ 5.1 mls/hr IV .Q20H HERMELINDA; Protocol Stop: 06/06/25 11:56 Octreotide Acetate 1,000 mcg/ (Sodium Chloride) 102 mls @ 5.1 mls/hr IV .Q20H HERMELINDA; Protocol Stop: 06/02/25 07:59 Last Admin: 06/01/25 12:20 Dose: 50 mcg/hr, 5.1 mls/hr Lactated Ringer's (Lactated Ringers) 1,000 mls @ 100 mls/hr IV .Q10H HERMELINDA Stop: 07/01/25 14:04 Last Admin: 06/01/25 15:31 Dose: 100 mls/hr Piperacillin Sod/Tazobactam (Sod 2.25 gm/ Sodium Chloride) 50 mls @ 100 mls/hr IV Q8HR HERMELINDA Stop: 06/08/25 15:44 Last Admin: 06/01/25 16:38 Dose: 100 mls/hr Norepinephrine/Dextrose (Levophed In D5w 8mg/250ml) 8 mg in 250 mls @ 6.974 mls/hr IV .Q24H PRN; Protocol PRN Reason: PER PROTOCOL Stop: 07/01/25 15:38 Last Titration: 06/01/25 16:25 Dose: 0.07 mcg/kg/min, 9.764 mls/hr Midodrine (Midodrine 5 Mg Tablet) 10 mg PO TID HERMELINDA Stop: 07/01/25 21:59 Pantoprazole Sodium (Pantoprazole Inj 40 Mg Vial) 40 mg IVP BID HERMELINDA Stop: 07/01/25 20:59 Discontinued Medications Lactated Ringer's (Lactated Ringers) 1,000 mls @ 999 mls/hr IV .Q1H1M ONE Stop: 06/01/25 12:57 Last Infusion: 06/01/25 12:52 Dose: Infused Lactated Ringer's (Lactated Ringers) 1,000 mls @ 999 mls/hr IV .Q1H1M ONE Stop: 06/01/25 13:51 Last Infusion: 06/01/25 13:58 Dose: Infused Ceftriaxone Sodium/Dextrose (Rocephin/D5w 1gm Iv Premix) 1 gm in 50 mls @ 100 mls/hr IV X1 ONE Stop: 06/01/25 13:49 Last Infusion: 06/01/25 14:12 Dose: Infused Azithromycin 500 mg/ Sodium (Chloride) 250 mls @ 250 mls/hr IV X1 ONE Stop: 06/01/25 14:20 Last Infusion: 06/01/25 15:40 Dose: Infused Lactated Ringer's (Lactated Ringers) 1,000 mls @ 999 mls/hr IV .Q1H1M ONE Stop: 06/01/25 15:14 Last Infusion: 06/01/25 15:40 Dose: Infused Albumin Human (Albuminar-25 Ivpb) 12.5 gm in 50 mls @ 50 mls/hr IV X1 ONE Stop: 06/01/25 15:59 Last Infusion: 06/01/25 16:19 Dose: Infused Albumin Human (Albuminar-25 Ivpb) 12.5 gm in 50 mls @ 50 mls/hr IV X1 ONE Stop: 06/01/25 16:00 Last Infusion: 06/01/25 16:20 Dose: Infused Norepinephrine Bitartrate (Levophed In Ns 16mg/250ml) 16 mg in 250 mls @ 3.487 mls/hr IV .Q24H PRN; Protocol PRN Reason: PER protocol Stop: 07/01/25 15:32 Midodrine (Midodrine 5 Mg Tablet) 10 mg PO X1 ONE Stop: 06/01/25 12:38 Last Admin: 06/01/25 12:59 Dose: 10 mg Octreotide Acetate (Octreotide Acet Inj 50 Mcg/Ml Vial) 50 mcg IV X1 ONE Stop: 06/01/25 11:57 Last Admin: 06/01/25 12:14 Dose: 50 mcg Pantoprazole Sodium (Pantoprazole Inj 40 Mg Vial) 80 mg IVP X1 ONE Stop: 06/01/25 11:57 Last Admin: 06/01/25 12:12 Dose: 80 mg Sodium Chloride (Sodium Chloride Rt 10% 15 Ml Nebu) 5 ml INH X1 ONE Stop: 06/01/25 15:42 Assessment & Plan Plan 69-year-old male with past medical history of nonischemic cardiomyopathy, afib, group 2 pulmonary hypertension, HFrEF 40% s/p LINOLEUM TILE LAYER pacemaker, and CKD who presented to the ED on 06/01/2025 with increasing rectal bleeding, overall weakness, and diarrhea which all began about 2 weeks ago. Patient was admitted to the ICU for hypovolemic shock in the setting of GI bleed. NEURO Patient is awake, alert, and oriented x3, following commands, conversational. #No active problems CARDIO #Shock DDx: Most likely hypovolemic in the setting of medications, GI losses, and poor intake. Versus septic - mild elevation of WBC, however no fevers. Less likely cardiogenic and obstructive shock given bedside US showed adequate ventricular function. Dx: Patient was taking Bumex 0.5 mg qday, dose was decreased 3 weeks ago with cardio. Also has been having daily diarrhea with bleeding. -BPs in ED were MAP 50s just prior to admission -Lactic acid on admission was 4.0 Tx: -Fluid resuscitation -Started norepinephrine drip -Titrate BP to MAP goal of 60-65 given history of HFrEF and baseline hypotension -Continue home midodrine 10 mg TID -Albumin 75 gm ordered TTx: -Titrate pressor -Follow up with NICOM and IVC measurements #Heart failure with reduced ejection fraction, not currently in acute exacerbation #s/p LINOLEUM TILE LAYER pacemaker #History of nonischemic cardiomyopathy Dx: Patient follows with Dr. Craig -Last echo showed 40% EF per Dr. Craig -Patient takes Entresto, Bumex, and Aldactone Tx: -Strict intake and output measurement -Daily weight -Hold off on all diuretics -Hold Entresto due to hypotension -Monitor fluid status closely while resuscitating -Dr. Craig patient's early childhood assistant was consulted to follow TTx: -Follow up with NICOM and IVC measurements as well as physical exam #Elevated troponin #NSTEMI type 2 DDx: Most likely NSTEMI type 2 demand ischemia in the setting of HFrEF and dehydration Dx: Troponin on admission was 0.223. EKG shows ventricular paced rhythm no ST changes. Patient does not complain of any chest pain. Tx: -Trend in 8 hours TTx: -Continue to monitor signs and symptoms PULM #Community acquired pneumonia DDx: Viral versus bacterial Dx: -Patient on admission is not hypoxic, saturating well on room air, and denies any respiratory symptoms -CXR showed bilateral lower lobe densities -COVID screen negative Tx: -Started on empiric Zosyn 2.25 q8h (renally dosed) -Check CT chest/abdomen/pelvis -MRSA screen ordered -Blood cultures ordered -Sputum culture ordered TTx: -Continue to monitor signs and symptoms and O2 status GI #GI bleed DDx: Upper versus lower. Upper - esophageal varices, gastric ulcers, gastritis. Lower - hemorrhoids, malignancy, AVM Dx: Patient presented with melena for 2 weeks, worsened in the last few days to include moreno red output with diarrhea. Patient with likely history of liver cirrhosis. -Stool occult positive in the ED with exam showing melanotic stool Tx: -GI consulted, appreciate recommendations -Octreotide drip -Pantoprazole 40 mg IV BID -NPO after midnight for possible EGD TTx: #Suspected liver cirrhosis #Elevated LFTs #Hyperbilirubinemia #Hypoalbuminemia DDx: Alcohol-related, fatty liver, autoimmune Dx: -Total bilirubin 4.1, appears to be chronically elevated. AST and ALT chronically elevated, AST>ALT Tx: -Albumin 75 gm -Ordered CT chest/abdomen/pelvis -Monitor CMP -Hepatitis panel TTx: -Follow up imaging NEPHRO #FEROZ on CKD DDx: Prerenal versus intrinsic. Dehydration, hypovolemic shock, leading to ATN Dx: -Given 3L fluid boluses in ED -Urine output was minimal Tx: -Continue IV hydration -Run NICOM -Strict intake and output measurement -Bain inserted -Avoid nephrotoxins -Monitor renal panel -Renally dosed medications -Hold any diuretics and Entresto -Patient's precision lens technician Dr. Munoz consulted and contacted, will be rounding on patient TTx: -Follow up with NICOM result and give fluids accordingly URO #No active problems HEME #Coagulopathy #Elevated PT and INR DDx: Most likely in the setting of liver cirrhosis Dx: -PT 16.9, INR 1.6 on admission Tx: -Avoid chemical prophylaxis -SCDs ENDO #History of type 2 diabetes Dx: On admission initial glucose 151. A1c 4.8 from 05/02/2025 admission. A1c has been low over the last 1 year, likely falsely low in the setting of CKD. Patient used to take Januvia for diabetes at home. Tx: -Held home medications -Bedside blood glucose checks q6h given octreotide drip -Carb consistent low diet ID #Community acquired pneumonia Dx: -Patient on admission is not hypoxic, saturating well on room air, and denies any respiratory symptoms -CXR showed bilateral lower lobe densities Tx: -Blood cultures pending -Sputum culture and gram stain ordered -MRSA nasal screen #Rule out SBP Dx: Patient does not complain of any right upper quadrant pain. Tx: -US diagnostic paracentesis ordered -Peritoneal fluid studies: albumin, amylase, glucose, protein, cell count TTx: -Follow up in AM for procedure MSK #No active problems SKIN #No active problems DVT prophylaxis: SCDs GI prophylaxis: Pantoprazole 40 mg IV BID Diet: NPO Bain: Present Lines: Peripheral IV Antibiotics: Zosyn [06/02- ] CODE STATUS: FULL Reason for ICU care: Hypovolemic shock secondary to dehydration/GI bleed requiring pressor support Patient plan of care was discussed with the attending numberer and wirer, Dr. Nash. Yanely Caballero, PGY-3
--- NOTE | 2025-06-01 18:00 | ESCONSULT_ITS ---
<Statement entered by Sobeida Craig MD - 06/04/25 08:30> I personally evaluated examined this patient was very well-controlled noted to be along sinus of nonischemic cardiomyopathy chronic systolic heart failure [employer] defibrillator implantation ejection fraction improved from 20% up to 40% by cardiac echo recently with clinically doing well presented to the hospital with dehydration acute renal failure secondary to but appears to be dehydration combination of diuretics acute kidney injury renal failure is markedly elevated creatinine slowly improving tolerated hydration 3 L of fluid very well. Recommend continue to hydrate the patient clinically does not appear to be in heart failure no contraindication to give IV fluid and nephrology consultation possible dialysis. Evaluate the patient with resident physician PGY 1 and 2 agree with the treatment plan recommendation as documented by resident physician team. HPI Data of Consult Requesting Physician: Petar Nash MD Admitting Provider: Petar Nash MD Attending Provider: Petar Nash MD Primary Care Provider: Rolando Irizarry MD Consult Narrative History of present illness: History of Present Illness: The is a 69-year-old male with a complex PMHx of nonischemic cardiomyopathy, HFrEF 40% s/p [employer] pacemaker A-fib, group 2 PAH, CKD, T2DM, presented to the ED with chief complaints of generalized weakness, diarrhea and rectal bleed ongoing for 2 weeks. Follows up in our office for chronic heart failure, with ejection fraction improved from 25 to 30% to 40% with GDMT. He was seen in the clinic recently and has been doing relatively well with diuresis and medical management. However, on presentation this time he was found to have FEROZ with creatinine of 7.6, likely in settings of diuresis combined with fluid loss. There is no sign or symptoms of CHF exacerbation. BNP although mildly elevated but is chronic, likely also as a result of ENTRESTO. Additionally, he has NSTEMI type II with chronically elevated troponin. Otherwise remained symptomatic without chest pain or shortness of breath or palpitations. In ED he has received 3 L of fluid, however MAP remained low requiring ICU admission for low pressor support. Currently maintaining adequate MAP, around mid 60s. Would likely tolerate gentle IV fluid well given that his ejection fraction has much improved, monitor renal function, watch for signs of fluid overload. Recommended weaning off pressor support when blood pressure/MAP tolerate. Resume GDMT as tolerated. Past Medical History: * Non-ischemic cardiomyopathy, afib, group 2 pulmonary hypertension, HFrEF 40% s/p [employer] pacemaker, and CKD, previous history of type 2 diabetes however A1c 4.8 (likely falsely low). Past Surgical History: * Distant history of ventral hernia repair. Medications: * ENTRESTO BID, SPIRONOLACTONE 25 mg daily, BUMEX 0.5 mg daily, MIDODRINE 10 mg BID, AMIODARONE 200 mg BID. Allergies: * No known allergies. Family History: * Father COPD, requiring CABG. Mother with history of kidney disease and diabetes. Social History: * Distant history of severe alcohol use, about 20 beers a day, quit 15 years ago. Now only drinks alcohol occasionally. Denies tobacco or drug use. cc:: cc: Petar Nash MD Exam Vital Signs Temp Pulse Resp BP Pulse Ox O2 Del Method O2 Flow Rate 97.0 F 61 17 78/47 L 95 Nasal Cannula 1.5 06/02/25 08:00 06/02/25 12:00 06/02/25 11:52 06/02/25 12:00 06/02/25 11:52 06/01/25 16:11 06/01/25 22:47 Narrative Exam GENERAL * Well-nourished, NAD, on room air. HEENT * NCAT.?VICKY. Oral mucosa is moist. Patent Nares NECK * Supple, nontender, no JVD. CHEST * RRR, no m/g/r * CTAB, no w/r/r, symmetrical expansion. ABDOMEN * Soft, mildly distended, nontender. No guarding/rebound tenderness/masses. * Bowel sounds presents EXTREMITIES * No edema/cyanosis.? SKIN * Warm and dry, no jaundice/rashes. NEUROMUSCULAR * No lumbar or midline, no CVA, no paraspinal muscle spasm or tenderness. * Moves all 4 extremities well, with full ROM and good CSM. * OSBORNE x4, CN II-XII grossly intact. * No focal neurologic deficits. PSYCHIATRY * Normal mood and affect, cooperative, no SI or HI or hallucinations. Results Labs 06/02/25 04:40 06/02/25 04:40 Labs: Short CBC 06/01/25 06/02/25 Range/Units 12:06 04:40 WBC 12.4 H 13.7 H (3.8-10.6) Thou/mm3 Hgb 13.6 12.1 L (13.5-16.0) g/dL Hct 39.2 L 34.8 L (41.0-53.0) % Plt Count 196 176 (140-440) Thou/mm3 BMP 06/01/25 06/01/25 06/02/25 12:06 20:14 04:40 Sodium 136 136 138 Potassium 3.9 4.2 4.0 Chloride 97 L 101 100 Carbon Dioxide 20.3 21.0 18.9 L BUN 89 H 60 H 60 H Creatinine 7.2 H* 6.0 H* D 5.7 H* Glucose 151 H D 103 83 Calcium 8.4 9.3 8.8 Cardiac Enzymes 06/01/25 06/01/25 Range/Units 12:06 20:14 Troponin I 0.223 H* 0.238 H* (0.0-0.045) ng/mL Liver Function 06/01/25 06/02/25 Range/Units 12:06 04:40 Total Bilirubin 4.1 H D 6.2 H D (0.3-1.2) mg/dL AST 168 H 118 H (0-34) U/L ALT 112 H 75 H (10-49) U/L Alkaline Phosphatase 195 H D 112 D (46-116) U/L Albumin 2.6 L 3.1 L D (3.4-4.8) gm/dL Urine 06/01/25 Range/Units 13:20 Urine Color Yellow (Lt Yel-Yel) Urine Clarity Hazy (Clear/Hazy) Urine pH 6.5 (5.0-7.0) Ur Specific [place] 1.015 (1.001-1.035) Urine Protein Trace (Neg - Trace) Urine Glucose (UA) Negative (Negative) ABG Interpretation ABG results: 06/01/25 13:40 ABG pH 7.44 ABG pCO2 29 L ABG pO2 68 L ABG HCO3 20 ABG O2 Saturation 93 ABG Base Excess -3 Quality Measures Quality Measures none Advance care planning discussed with:: patient Medications Home Medications and Allergies Home Medications ?Medication ?Instructions ?Recorded ?Confirmed ?Type amiodarone 200 mg tablet 200 mg PO BID 02/26/2106/01 History bumetanide 0.5 mg tablet 0.5 mg PO QDAY 06/01/25 08/04/20 History midodrine 5 mg tablet 10 mg PO BID 06/01/25 History sacubitril 24 mg-valsartan 26 mg 1 tab PO BID 06/01/25 06/01/25 History tablet (Entresto) sacubitril 24 mg-valsartan 26 mg 1 tab PO BID 06/01/25 06/01/25 History tablet (Entresto) spironolactone 25 mg tablet 25 mg PO QDAY 06/01/2504/20 History Allergies Allergy/AdvReac Type Severity Reaction Status Date / Time No Known Allergies Allergy Verified 06/01/25 11:40 Visit Medications Acetaminophen (Acetaminophen 325 Mg Tablet) 650 mg PO Q4HR PRN PRN Reason: PAIN SCALE 1-3 (mild Stop: 07/01/25 15:19 Acetaminophen (Acetaminophen Supp 650 Mg Supp) 650 mg CA Q4HR PRN PRN Reason: PAIN SCALE 1-3 (mild Stop: 07/01/25 15:19 Lactated Ringer's (Lactated Ringers) 1,000 mls @ 100 mls/hr IV .Q10H [facility] Stop: 07/01/25 14:04 Last Admin: 06/02/25 02:49 Dose: 100 mls/hr Piperacillin Sod/Tazobactam (Sod 2.25 gm/ Sodium Chloride) 50 mls @ 100 mls/hr IV Q8HR [facility] Stop: 06/08/25 15:44 Last Admin: 06/02/25 06:13 Dose: 100 mls/hr Albumin Human (Albuminar-25 Ivpb) 25 gm in 100 mls @ 100 mls/hr IV QDAY [facility] Stop: 06/04/25 19:12 Last Admin: 06/02/25 08:01 Dose: 100 mls/hr Norepinephrine/Dextrose (Levophed In D5w 8mg/250ml) 8 mg in 250 mls @ 6.974 mls/hr IV .Q24H PRN; Protocol PRN Reason: PER PROTOCOL Stop: 07/01/25 15:38 Last Titration: 06/02/25 12:10 Dose: 0.43 mcg/kg/min, 59.976 mls/hr Albumin Human (Albuminar-25 Ivpb) 25 gm in 100 mls @ 100 mls/hr IV Q1H [facility] Stop: 06/02/25 13:50 Midodrine (Midodrine 5 Mg Tablet) 10 mg PO TID [facility] Stop: 07/01/25 21:59 Last Admin: 06/02/25 06:14 Dose: 10 mg Pantoprazole Sodium (Pantoprazole Inj 40 Mg Vial) 40 mg IVP BID [facility] Stop: 07/01/25 20:59 Last Admin: 06/02/25 08:00 Dose: 40 mg Discontinued Medications Octreotide Acetate 1,000 mcg/ (Sodium Chloride) 102 mls @ 5.1 mls/hr IV .Q20H [facility]; Protocol Stop: 06/06/25 12:00 Last Admin: 06/02/25 08:00 Dose: 50 mcg/hr, 5.1 mls/hr Lactated Ringer's (Lactated Ringers) 1,000 mls @ 999 mls/hr IV .Q1H1M [facility] Stop: 06/01/25 12:57 Last Infusion: 06/01/25 12:52 Dose: Infused Octreotide Acetate 1,000 mcg/ (Sodium Chloride) 102 mls @ 5.1 mls/hr IV .Q20H [facility]; Protocol Stop: 06/02/25 07:59 Last Admin: 06/01/25 12:20 Dose: 50 mcg/hr, 5.1 mls/hr Lactated Ringer's (Lactated Ringers) 1,000 mls @ 999 mls/hr IV .Q1H1M ONE Stop: 06/01/25 13:51 Last Infusion: 06/01/25 13:58 Dose: Infused Ceftriaxone Sodium/Dextrose (Rocephin/D5w 1gm Iv Premix) 1 gm in 50 mls @ 100 mls/hr IV X1 ONE Stop: 06/01/25 13:49 Last Infusion: 06/01/25 14:12 Dose: Infused Azithromycin 500 mg/ Sodium (Chloride) 250 mls @ 250 mls/hr IV X1 ONE Stop: 06/01/25 14:20 Last Infusion: 06/01/25 15:40 Dose: Infused Lactated Ringer's (Lactated Ringers) 1,000 mls @ 999 mls/hr IV .Q1H1M ONE Stop: 06/01/25 15:14 Last Infusion: 06/01/25 15:40 Dose: Infused Albumin Human (Albuminar-25 Ivpb) 12.5 gm in 50 mls @ 50 mls/hr IV X1 ONE Stop: 06/01/25 15:59 Last Infusion: 06/01/25 16:19 Dose: Infused Albumin Human (Albuminar-25 Ivpb) 12.5 gm in 50 mls @ 50 mls/hr IV X1 ONE Stop: 06/01/25 16:00 Last Infusion: 06/01/25 16:20 Dose: Infused Norepinephrine Bitartrate (Levophed In Ns 16mg/250ml) 16 mg in 250 mls @ 3.487 mls/hr IV .Q24H PRN; Protocol PRN Reason: PER protocol Stop: 07/01/25 15:32 Norepinephrine/Dextrose (Levophed In D5w 8mg/250ml) 8 mg in 250 mls @ 6.974 mls/hr IV .Q24H PRN; Protocol PRN Reason: PER PROTOCOL Stop: 07/01/25 15:38 Last Titration: 06/02/25 02:20 Dose: Infused Albumin Human (Albuminar-25 Ivpb) 25 gm in 100 mls @ 100 mls/hr IV X1 ONE Stop: 06/01/25 20:13 Last Infusion: 06/01/25 21:42 Dose: Infused Norepinephrine/Dextrose (Levophed In D5w 8mg/250ml) 8 mg in 250 mls @ 6.974 mls/hr IV .Q24H PRN; Protocol PRN Reason: PER PROTOCOL Stop: 07/01/25 15:38 Last Admin: 06/02/25 09:34 Dose: 0.21 mcg/kg/min, 29.291 mls/hr Midodrine (Midodrine 5 Mg Tablet) 10 mg PO X1 ONE Stop: 06/01/25 12:38 Last Admin: 06/01/25 12:59 Dose: 10 mg Octreotide Acetate (Octreotide Acet Inj 50 Mcg/Ml Vial) 50 mcg IV X1 ONE Stop: 06/01/25 11:57 Last Admin: 06/01/25 12:14 Dose: 50 mcg Pantoprazole Sodium (Pantoprazole Inj 40 Mg Vial) 80 mg IVP X1 ONE Stop: 06/01/25 11:57 Last Admin: 06/01/25 12:12 Dose: 80 mg Sodium Chloride (Sodium Chloride Rt 10% 15 Ml Nebu) 5 ml INH X1 ONE Stop: 06/01/25 15:42 Last Admin: 06/02/25 11:45 Dose: Not Given Assessment & Plan Plan The is a 69-year-old male with a complex PMHx of nonischemic cardiomyopathy, HFrEF 40% s/p [employer] pacemaker A-fib, group 2 PAH, CKD, T2DM, presented to the ED with chief complaints of generalized weakness, diarrhea and rectal bleed ongoing for 2 weeks. HFrEF EEF 40% on GDMT, s/p [employer] pacemaker Mild hypovolemic shock in settings of volume depletion PAH group 2 Atrial fibrillation, rate controlled NSTEMI type II, chronic troponinemia Hx nonischemic cardiomyopathy FEROZ, prerenal azotemia Hx HFrEF (EF improved from 25?30% to 40% on GDMT) follows in our cardiology clinic and was recently seen with stable symptoms and adequate diuresis. He now presents with FEROZ (Cr 7.6), likely due to volume depletion from ongoing diuresis and GI fluid losses. There are no signs of acute CHF exacerbation. BNP is mildly elevated but likely chronic and influenced by Entresto. Troponin is chronically elevated (NSTEMI type II) without chest pain or other ischemic symptoms. In the ED, he received 3L IV fluids but remained hypotensive, requiring ICU admission for vasopressor support. He is now maintaining MAP in the mid-60s. Given improved EF, he may tolerate cautious IV fluid repletion; recommend close monitoring for fluid overload and renal function. Plan to wean off pressors as tolerated and resume GDMT gradually once hemodynamics stabilize. HR rate appears well controlled. Remains asymptomatic without chest pain, palpitation or shortness of breath. Acute Transaminitis Possible underlying alcoholic liver cirrhosis vs. ischemic hepatopathy [facility] pneumonia Concern for GI bleed FEROZ on CKD Coagulopathy, elevated PT/INR T2DM SBP rule out Managed by primary team. Thank you for the opportunity to persuade in the care of this patient. Case was discussed with attending physician. Smith Cortez DO PGY II This document was transcribed using voice recognition technology. Minor inaccuracies may be present.
[2025-06-01 18:11] LABS: Reflex Lactate? Y
[2025-06-01] MEDS: ALBUMIN HUMAN 25% IVPB 25 GM/100 ML BTL IV ×2 (19:36→20:48)
[2025-06-01 20:34] LABS: Lactate (Lactic Acid) 3.4 mMol/L (0.4-2.0)
--- NOTE | 2025-06-01 21:08 | PC.NURSE ---
CLARIFIED MAP GOAL WITH DR. GRECO. ANGUS STATES KEEP LEVO MAP AT 65.
[2025-06-01 21:53] LABS: Anion Gap 14 (7-16); Blood Urea Nitrogen 60 mg/dL (9-23); Calcium 9.3 mg/dL (8.3-10.6); Carbon Dioxide 21.0 mMol/L (20.0-31.0); Chloride 101 mMol/L (98-107); Glucose 103 mg/dL (74-106); Osmolality,Calculated 288 (275-295); Potassium 4.2 mMol/L (3.4-5.1); Procalcitonin 0.34 ng/ml (0.0-0.49); Sodium 136 mMol/L (136-145)
--- NOTE | 2025-06-01 21:55 | PD.IMCONS ---
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 for 2 weeks of dark red stools and weakness Along with diarrhea Patient has extensive history of nonischemic cardiomyopathy ejection fraction 25% pulmonary hypertension chronic atrial fibrillation and pacemaker placement diabetes mellitus type 2 hyperlipidemia and alcohol induced cirrhotic liver disease cc:: cc: Petar Nash MD Review of Systems Review of Systems Systems Reviewed: All systems reviewed, normal except as documented Past Medical History Surgical History OTHER SURGICAL HX: As in the history of present illness Meds Home Medications and Allergies Home Medications ?Medication ?Instructions ?Recorded ?Confirmed ?Type amiodarone 200 mg tablet 200 mg PO BID 02/26/21 06/01/25 History bumetanide 0.5 mg tablet 0.5 mg PO QDAY 06/01/25 06/01/25 History midodrine 5 mg tablet 10 mg PO BID 06/01/25 06/01/25 History sacubitril 24 mg-valsartan 26 mg 1 tab PO BID 06/01/25 06/01/25 History tablet (Entresto) sacubitril 24 mg-valsartan 26 mg 1 tab PO BID 06/01/25 06/01/25 History tablet (Entresto) spironolactone 25 mg tablet 25 mg PO QDAY 06/01/25 06/01/25 History Allergies Allergy/AdvReac Type Severity Reaction Status Date / Time No Known Allergies Allergy Verified 06/01/25 11:40 Exam Vital Signs Temp Pulse Resp BP Pulse Ox O2 Del Method O2 Flow Rate 97.9 F 82 14 89/55 L 96 Nasal Cannula 2 06/01/25 16:11 06/01/25 21:32 06/01/25 20:45 06/01/25 21:32 06/01/25 20:45 06/01/25 16:11 06/01/25 16:11 Constitutional Comments: Chronically ill-appearing Routine Abdominal Exam Comments: Soft nontender Results Labs 06/01/25 12:06 06/01/25 20:14 Labs: Short CBC 06/01/25 Range/Units 12:06 WBC 12.4 H (3.8-10.6) Thou/mm3 Hgb 13.6 (13.5-16.0) g/dL Hct 39.2 L (41.0-53.0) % Plt Count 196 (140-440) Thou/mm3 BMP 06/01/25 12:06 Sodium 136 Potassium 3.9 Chloride 97 L Carbon Dioxide 20.3 BUN 89 H Creatinine 7.2 H* Glucose 151 H D Calcium 8.4 Cardiac Enzymes 06/01/25 Range/Units 12:06 Troponin I 0.223 H* (0.0-0.045) ng/mL Liver Function 06/01/25 Range/Units 12:06 Total Bilirubin 4.1 H D (0.3-1.2) mg/dL AST 168 H (0-34) U/L ALT 112 H (10-49) U/L Alkaline Phosphatase 195 H D (46-116) U/L Albumin 2.6 L (3.4-4.8) gm/dL Urine 06/01/25 Range/Units 13:20 Urine Color Yellow (Lt Yel-Yel) Urine Clarity Hazy (Clear/Hazy) Urine pH 6.5 (5.0-7.0) Ur Specific [place] 1.015 (1.001-1.035) Urine Protein Trace (Neg - Trace) Urine Glucose (UA) Negative (Negative) ABG Interpretation ABG results: 06/01/25 13:40 ABG pH 7.44 ABG pCO2 29 L ABG pO2 68 L ABG HCO3 20 ABG O2 Saturation 93 ABG Base Excess -3 Assessment and Plan Additional Assessment & Plan Additional Plan: # GI bleeding in the setting of cirrhotic liver disease currently on octreotide infusion # Hypotension on norepinephrine Plan Once patient hemodynamically stabilizes we will consider doing a fiberoptic esophagogastroduodenoscopy with possible therapeutic intervention under intravenous moderate sedation tentatively scheduled for tomorrow Consent from the patient obtained and the procedure was tentatively scheduled Spoke with the nurse in the ICU and the patient to get the consent signed N.p.o. at midnight tonight except meds Agree with IV Protonix and octreotide
[2025-06-01 22:40] LABS: BUN/Creatinine Ratio 10 Ratio (12-20); Creatinine (Component) 6.0 mg/dL (0.6-1.3); Estimated Creatinine Clearance 11.0 mL/min (>60); Troponin I 0.238 ng/mL (0.0-0.045); eGFR 9 See Note
[2025-06-01 23:31] LABS: Reflex Lactate? Y
[2025-06-02] VITALS (121 sets, daily range): BP systolic 69–110; BP diastolic 26–71; PULSE 0–91; RESP 12–92; TEMP 36.1–36.9; O2SAT 89–97
[2025-06-02 00:02] LABS: Lactic Acid, 3 HR 2.7 mMol/L (0.4-2.0)
[2025-06-02] MEDS: Norepinephrine/D5W 8mg/250ml 8 MG/250 ML BAG 32.08 MG IV (02:20)
[2025-06-02] MEDS: RINGERS LACTATED 1000 ML 1,000 ML 100 ML IV ×2 (02:49→12:39)
[2025-06-02] MEDS: PIPERACILLIN/TAZO 2.25GM INJ 2.25 GM in SODIUM CHLORIDE 0.9% (Popper) 50 ML IV ×3 (06:13→21:31)
[2025-06-02] MEDS: MIDODRINE 5 MG TABLET 10 MG PO ×3 (06:14→21:30)
[2025-06-02 06:18] LABS: Basophils # (Auto) 0.0 Thou/mm3 (0.0-0.2); Basophils % (Auto) 0 % (0-2.5); Eosinophils # (Auto) 0.2 Thou/mm3 (0.0-0.5); Eosinophils % (Auto) 1 % (0-10); Hematocrit 34.8 % (41.0-53.0); Hemoglobin 12.1 g/dL (13.5-16.0); Immature Granulocytes Auto 0.11 Thou/mm3 (0.00-0.00); Lymphocytes # (Auto) 1.3 Thou/mm3 (1.0-4.8); Lymphocytes % (Auto) 10 % (10-50); Mean Corpuscular HGB Conc 34.8 g/dl (31.0-37.0); Mean Corpuscular Hemoglobin 31.2 pg (25.0-35.0); Mean Corpuscular Volume 90 fL (80-100); Monocytes # (Auto) 1.4 Thou/mm3 (0.0-0.8); Monocytes % (Auto) 11 % (0-12); Neutrophils # (Auto) 10.6 Thou/mm3 (1.8-7.7); Neutrophils % (Auto) 78 % (37-80); Nucleated Red Blood Cell # 0.00 Thou/mm3 (0.00-0.00); Nucleated Red Blood Cell % 0 /100 WBC (0); Platelet Count 176 Thou/mm3 (140-440); RDW Standard Deviation 52.5 fL (35.1-43.9); Red Blood Count 3.88 Miln/mm3 (4.50-5.90); White Blood Count 13.7 Thou/mm3 (3.8-10.6)
[2025-06-02 07:01] LABS: Alanine Aminotransferase 75 U/L (10-49); Albumin, Serum 3.1 gm/dL (3.4-4.8); Albumin/Globulin Ratio 0.9 (1.2-2.2); Alkaline Phosphatase 112 U/L (46-116); Anion Gap 19 (7-16); Aspartate Amino Transferase 118 U/L (0-34); BUN/Creatinine Ratio 11 Ratio (12-20); Bilirubin,Total 6.2 mg/dL (0.3-1.2); Blood Urea Nitrogen 60 mg/dL (9-23); Calcium 8.8 mg/dL (8.3-10.6); Calcium (Corrected) 9.5 mg/dL (8.5-10.1); Carbon Dioxide 18.9 mMol/L (20.0-31.0); Chloride 100 mMol/L (98-107); Creatinine (Component) 5.7 mg/dL (0.6-1.3); Estimated Creatinine Clearance 11.5 mL/min (>60); Globulin 3.3 gm/dL (2.3-3.5); Glucose 83 mg/dL (74-106); Magnesium 1.8 mg/dL (1.6-2.6); Osmolality,Calculated 291 (275-295); Phosphorous 6.2 mg/dL (2.4-5.1); Potassium 4.0 mMol/L (3.4-5.1); Sodium 138 mMol/L (136-145); Total Protein 6.4 gm/dL (5.7-8.2); eGFR 10 See Note
[2025-06-02 07:11] LABS: Hepatitis A Antibody IgM Non Reactive (Non React); Hepatitis B Core Antibody IgM Non Reactive (Non React); Hepatitis B Surface Antigen Non Reactive (Non React); Hepatitis C Antibody Non Reactive (Non React)
[2025-06-02 07:47] LABS: Ammonia 22 uMol/L (11-32)
[2025-06-02] MEDS: OCTREOTIDE ACET INJ 1,000 MCG in SODIUM CHLORIDE 0.9% 100 ML 5.1 MCG IV (08:00)
[2025-06-02] MEDS: ALBUMIN HUMAN 25% IVPB 25 GM/100 ML BTL IV ×3 (08:01→14:00)
[2025-06-02] MEDS: Norepinephrine/D5W 8mg/250ml 8 MG/250 ML BAG 29.291 MG IV (09:34)
--- NOTE | 2025-06-02 11:39 | XR_ITS ---
Examination: AP chest single view TECHNIQUE: AP portable sitting chest single view Date and time: June 02, 2025 1146 hours INDICATIONS: Post central line placement. FINDINGS: Right internal jugular central line tip SVC satisfactory position. No pneumothorax. Bibasilar pneumonia. Normal heart size Cardiac leads satisfactory position IMPRESSION: Right internal jugular central line tip SVC satisfactory position No pneumothorax
[2025-06-02] MEDS: Norepinephrine/D5W 8mg/250ml 8 MG/250 ML BAG 43.239 MG IV (11:46)
[2025-06-02] MEDS: Norepinephrine/D5W 8mg/250ml 8 MG/250 ML BAG 57.187 MG IV (12:00)
--- NOTE | 2025-06-02 13:09 | PC.SS ---
QUALITY CONTROL ASSOCIATE conducted bedside contact with the patient conduct initial assessment and to discuss discharge planning.? Patient confirmed demographic information.? Patient resides at home with spouse, Jaja Sawyer .? Patient is currently employed.? Patient does not utilize any form of DME to assist with ambulation.? Patient does not utilize home oxygen.? Patient describes the ability to complete ADL?s independently.? Patient identified spouse, Jaja Sawyer; as medical surrogate decision maker.? Patient?s PCP is Dr. Irizarry. ?Patient?s art preparator is Dr. Hancock. ?Patient?s c4 planner is Dr. Munoz.? Patient does not participate with dialysis. ?Patient possesses a history of diabetes, insulin dependent.? Patient utilizes [facility] for medication services.? Plan is for the patient to return home at the time of discharge.? Family will provide transportation on behalf of the patient. ?No further discharge needs identified by the patient.? No further intervention required at this time, high school social studies teacher will be available to address any further concerns.? Next of Kin: Jaja Sawyer D/C Plan: Home
[2025-06-02] MEDS: LIDOCAINE HCL 1% 20 ML VIAL 10 ML INFL (13:40)
--- NOTE | 2025-06-02 14:38 | ESPR_ITS ---
<Statement entered by Petar Nash MD - 06/03/25 12:55> TOTAL CC TIME: 90 MIN I saw and evaluated the patient. I reviewed the resident?s note and agree with findings and plan as documented in the resident?s note. Upon my evaluation, this patient had a high probability of imminent or life- threatening deterioration due to septic shock, end-stage liver failure with ascites, acute kidney injury stage IV, systolic congestive heart failure which required my direct attention, intervention, and personal management. This time is exclusive of time spent on procedures, which are documented separately if performed. Patient remains on moderate to high doses of Levophed, for distributive shock likely septic shock We are treating his pneumonia with Zosyn and we will maintain broad spectrum antibiotics for now given he was already treated as an outpatient and has progressed. Blood cultures remain negative he has received multiple doses of albumin for resuscitation and in case he has hepatorenal syndrome. Central line was placed for Levophed, paracentesis was performed as well given his increasing shortness of breath and high volume ascites Renal function had improved somewhat with resuscitation efforts continue to monitor very closely Systolic function appears depressed at 35% on informal bedside echo, no evidence of acute coronary syndrome. Patient does not have nausea vomiting chest pain, pressure. Last pH was acceptable Addendum: Dr. Munoz inform me via message later in the day that he has placed orders for a PermCath to be placed for hemodialysis tomorrow. Documentation for date of: 06/02/25 Subjective Subjective Interval history: Patient is a 69-year-old male with past medical history of nonischemic cardiomyopathy, afib (not on anticoagulation), group 2 pulmonary hypertension, HFrEF 40% s/p [employer] pacemaker, type 2 diabetes, and CKD who presented to the ED on 06/01/2025 with increasing rectal bleeding, overall weakness, and diarrhea which all began about 2 weeks ago. Patient reports that at first he has small blood- tinged diarrhea but the bleeding has increased to moreno red dripping output at times. He does have history of hemorrhoids but has not had this much bleeding previously. Patient currently follows up with Dr. Craig for cardiology and Dr. Munoz for nephrology. Patient last had a visit with Dr. Craig 3 weeks ago during which his Bumex dose was reduced to 0.5 mg daily due to worsening FEROZ. He had outpatient labs 2 days ago which showed FEROZ had worsened further to 7.6. Patient does report decreasing urine output. He otherwise denies any pain, including right upper quadrant pain, fevers, chills, sweats, nausea, vomiting, shortness of breath, or chest pain. ED workup showed hypotension to 79/50, with all other vitals normal. WBC slightly elevated at 12.4, Hgb 13.6, PT 16.9, INR 1.6. Chem panel showed BUN 89, creatinine 7.2, GFR 8. Osmolality 302. Lactic acid 4.0. Total bilirubin 4.1, AST 168, ALT 112, Alk phos 195. Troponin 0.223. BNP 439. Albumin 2.6. UA was negative. Stool occult positive for blood however no bloody BMs noted in ED. CXR showed thickened lower lobe interstitial lines suggestive of possible bilateral pneumonia. 06/02/2025: Patient is seen and examined at bedside. No acute overnight events. Denies any other complaints except for fatigue. Overnight, vasopressors needs went up and patient is on Levophed, 0.27 mcg/kg/min. Vitals are stable and MAP is around 65 mmHg. Overnight, patient made 600 mL of urine. Labs done this morning showed significant improvement in the renal functions with a creatinine down trended from 7.2-5.7. Hepatitis panel came back negative. On chest/abdomen/pelvis CT patient was found to have bilateral lower lobe opacities, consistent with patient's previous history of pneumonia 1 month ago and also found to have cavitary lesion for which cocci serology was sent. As the patient's vasopressors need is going up, central line is placed and patient is started on vasopressor through central line. Patient was found to have massive ascites and found to have shortness of breath possibly because of the massive ascites. Bedside ultrasound-guided paracentesis is done and drained 3.75 L of fluid and is sent for analysis. Also patient was given 75 g of albumin today and will continue to monitor renal functions. Repeat renal panel will be sent in the evening around 4 PM. As patient does not seem to be actively bleeding and low threshold of suspicion for the varices at this point of time, octreotide drip was stopped. Hose Mender, Dr. Logan was called and discussed about the patient, endoscopy will be done once the patient becomes hemodynamically stable. Exam Vital Signs Temp Pulse Resp BP Pulse Ox O2 Del Method O2 Flow Rate 97.0 F 72 15 88/55 L 94 L Nasal Cannula 1.5 06/02/25 08:00 06/02/25 14:01 06/02/25 14:00 06/02/25 14:01 06/02/25 14:00 06/01/25 16:11 06/01/25 22:47 Narrative Exam General: Awake. Alert and lying comfortably on the bed HEENT: Normocephalic, atraumatic, mucous membranes moist. Heart: Regular rate and rhythm, no murmurs. Lungs: Noted basilar crackles in bilateral lungs Abdomen: Soft, moderately distended, nontender, positive bowel sounds. ?No guarding or rebound tenderness. Neurologic: Alert and oriented x3, no gross neurological deficit, and patient able to move all 4 extremities. Extremities: No edema. Skin: No rash or ecchymoses. Objective Labs 06/02/25 04:40 06/02/25 04:40 Labs: Laboratory Results - last 24 hr 06/01/25 06/01/25 06/01/25 15:08 20:14 23:50 WBC RBC Hgb Hct MCV MCH MCHC RDW Std Deviation Plt Count Neut % (Auto) Lymph % (Auto) Glasscock % (Auto) Eos % (Auto) Baso % (Auto) Neut # (Auto) Lymph # (Auto) Glasscock # (Auto) Eos # (Auto) Baso # (Auto) Immature Gran # (Auto) Absolute Nucleated RBC Immature Gran % Nucleated RBC % Sodium 136 Potassium 4.2 Chloride 101 Carbon Dioxide 21.0 Anion Gap 14 BUN 60 H Creatinine 6.0 H* D Estim Creat Clear Calc 11.0 L eGFR 9 L* BUN/Creatinine Ratio 10 L Glucose 103 Calculated Osmolality 288 Lactic Acid 4.0 H 3.4 H 2.7 H Calcium 9.3 Corrected Calcium Phosphorus Magnesium Total Bilirubin AST ALT Alkaline Phosphatase Ammonia Troponin I 0.238 H* Total Protein Albumin Globulin Albumin/Globulin Ratio Procalcitonin 0.34 Hepatitis A IgM Ab Hep Bs Antigen Hep B Core IgM Ab Hepatitis C Antibody 06/02/25 06/02/25 04:40 07:10 WBC 13.7 H RBC 3.88 L Hgb 12.1 L Hct 34.8 L MCV 90 MCH 31.2 MCHC 34.8 RDW Std Deviation 52.5 H Plt Count 176 Neut % (Auto) 78 Lymph % (Auto) 10 Glasscock % (Auto) 11 Eos % (Auto) 1 Baso % (Auto) 0 Neut # (Auto) 10.6 H Lymph # (Auto) 1.3 Glasscock # (Auto) 1.4 H Eos # (Auto) 0.2 Baso # (Auto) 0.0 Immature Gran # (Auto) 0.11 H Absolute Nucleated RBC 0.00 Immature Gran % 1 H Nucleated RBC % 0 Sodium 138 Potassium 4.0 Chloride 100 Carbon Dioxide 18.9 L Anion Gap 19 H BUN 60 H Creatinine 5.7 H* Estim Creat Clear Calc 11.5 L eGFR 10 L* BUN/Creatinine Ratio 11 L Glucose 83 Calculated Osmolality 291 Lactic Acid Calcium 8.8 Corrected Calcium 9.5 Phosphorus 6.2 H Magnesium 1.8 Total Bilirubin 6.2 H D AST 118 H ALT 75 H Alkaline Phosphatase 112 D Ammonia 22 Troponin I Total Protein 6.4 Albumin 3.1 L D Globulin 3.3 Albumin/Globulin Ratio 0.9 L Procalcitonin Hepatitis A IgM Ab Non Reactive Hep Bs Antigen Non Reactive Hep B Core IgM Ab Non Reactive Hepatitis C Antibody Non Reactive ABG Interpretation ABG results: 06/01/25 13:40 ABG pH 7.44 ABG pCO2 29 L ABG pO2 68 L ABG HCO3 20 ABG O2 Saturation 93 ABG Base Excess -3 Quality Measures Quality Measures none Advance care planning discussed with:: patient Assessment & Plan Assessment Current Active Medications: Generic Name Dose Route Start Last Admin Trade Name Freq PRN Reason Stop Dose Admin Acetaminophen 650 mg 06/01/25 15:20 Acetaminophen 325 Mg Tablet PO 07/01/25 15:19 Q4HR PRN PAIN SCALE 1-3 (mild Acetaminophen 650 mg 06/01/25 15:20 Acetaminophen Supp 650 Mg Supp [place] 07/01/25 15:19 Q4HR PRN PAIN SCALE 1-3 (mild Piperacillin Sod/Tazobactam 50 mls @ 100 mls/hr 06/01/25 15:45 06/02/25 14:00 Sod 2.25 gm/ Sodium Chloride IV 06/08/25 15:44 100 mls/hr Q8HR HERMELINDA Administration Albumin Human 25 gm in 100 mls @ 100 mls/hr 06/01/25 19:13 06/02/25 08:01 Albuminar-25 Ivpb IV 06/04/25 19:12 100 mls/hr QDAY HERMELINDA Administration Norepinephrine/Dextrose 8 mg in 250 mls @ 6.974 mls/hr 06/02/25 11:48 06/02/25 12:45 Levophed In D5w 8mg/250ml IV 07/01/25 15:38 0.47 mcg/kg/min .Q24H PRN 65.555 mls/hr PER PROTOCOL Titration Protocol 0.05 MCG/KG/MIN Midodrine 10 mg 06/01/25 22:00 06/02/25 14:01 Midodrine 5 Mg Tablet PO 07/01/25 21:59 10 mg TID HERMELINDA Administration Pantoprazole Sodium 40 mg 06/01/25 21:00 06/02/25 08:00 Pantoprazole Inj 40 Mg Vial IVP 07/01/25 20:59 40 mg BID HERMELINDA Administration Plan 69-year-old male with past medical history of nonischemic cardiomyopathy, afib, group 2 pulmonary hypertension, HFrEF 40% s/p [employer] pacemaker, and CKD who presented to the ED on 06/01/2025 with increasing rectal bleeding, overall weakness, and diarrhea which all began about 2 weeks ago. Patient was admitted to the ICU for hypovolemic shock in the setting of GI bleed. NEURO Patient is awake, alert, and oriented x3, following commands, conversational. #No active problems CARDIO #Shock DDx: Hypovolemic versus septic - Hypovolemic: Possible, in the setting of acute diarrheal illness, diuretic and Entresto usage in the setting of FEROZ and poor intake. Patient reported that he had 2 weeks of diarrheal illness, 1-2 bowel movements every day with no mucus, mostly watery. Also noted to have blood while wiping and on the last 3 days before the day of admission, noted to have more blood during the bowel movement. But unlikely to have hypovolemic shock from hemorrhage as patient's hemoglobin is stable. - Septic: Cannot be ruled out completely. Patient does not have any history of fever, abdominal pain, cough, shortness of breath. But patient had massive ascites, could be having possible SBP. - Cardiogenic: The patient had history of alcoholic cardiomyopathy with HFrEF with EF 40%, status post [employer] pacemaker. Currently patient is 100% paced and does not have any history of chest pain, shortness of breath, palpitations. So unlikely to have cardiogenic shock. Bedside ultrasound done did not show any regional wall motion abnormality. Diagnostic tests: - Patient is taking Bumex 0.5 mg, Entresto, 25 mg of spironolactone - MAP at the time of the ED visit is less than 65 mmHg. Patient was given 3 L of LR bolus and 10 mg of midodrine in the ED, despite despite of which MAP is less than 65 mmHg - Labs at the time of admission showed WBC 12.4, hemoglobin 13.6, lactate 4 - EKG showed paced rhythm with no acute ST-T wave changes - Blood culture and peritoneal fluid culture was sent - Echocardiogram is ordered Treatment: - Started on norepinephrine drip - Albumin 1 g/kg is given on day 1 and day 2 of admission - Placed a central line and will continue the norepinephrine drip to maintain MAP greater than 65 mmHg - Continue home midodrine 10 mg TID - Paracentesis was done today and 3.75 L of fluid is taken and sent for analysis TTx: -Titrate pressor # History of heart failure with reduced ejection fraction, not currently in acute exacerbation # s/p [employer] pacemaker # History of nonischemic cardiomyopathy, likely alcoholic cardiomyopathy Dx: Patient follows with Dr. Craig -Last echo showed 40% EF per Dr. Craig -Patient takes Entresto, Bumex, and Aldactone Tx: -Strict intake and output measurement -Daily weight -Hold off on all diuretics -Hold Entresto due to hypotension -Dr. Craig patient's statistical programmer analyst was consulted to follow -Echocardiogram was ordered TTx: -Follow up with NICOM and IVC measurements as well as physical exam #Elevated troponin #NSTEMI type 2 DDx: Most likely NSTEMI type 2 demand ischemia in the setting of HFrEF and dehydration Dx: Troponin on admission was 0.223. EKG shows ventricular paced rhythm no ST changes. Patient does not complain of any chest pain. Tx: Will continue to monitor for symptoms, telemetry monitoring PULM # Incidental Opacities on chest CT DDx: Likely healed opacity from recent pneumonia 1 month ago versus cavitatory lesion Dx: -Patient on admission is not hypoxic, saturating well on room air, and denies any respiratory symptoms -CXR showed bilateral lower lobe densities -COVID screen negative Tx: -Started on empiric Zosyn 2.25 q8h (renally dosed) -Cocci serology ordered in view of suspected cavitatory lesion in the left lung -MRSA screen ordered -Blood cultures ordered -Sputum culture ordered TTx: -Continue to monitor signs and symptoms and O2 status GI #GI bleed DDx: Upper versus lower. Upper - esophageal varices, gastric ulcers, gastritis. Lower - hemorrhoids, malignancy, AVM Dx: Patient presented with melena for 2 weeks, worsened in the last few days to include moreno red output with diarrhea. Patient with likely history of liver cirrhosis. -Stool occult positive in the ED with exam showing melanotic stool Tx: -GI consulted, appreciate recommendations -Octreotide drip is stopped as patient is suspected to have low threshold for varices as of now -Pantoprazole 40 mg IV BID -As patient is on vasopressors as of now and low suspicion of variceal bleed, discussed with Dr. Logan and will get EGD once the patient medical condition is stabilized #liver cirrhosis #Hyperbilirubinemia #Hypoalbuminemia DDx: Alcohol related versus Metabolic Dx: - Total bilirubin 4.1, appears to be chronically elevated. AST and ALT chronically elevated, AST>ALT - CT chest/abdomen/pelvis showed cirrhosis, severe ascites, splenomegaly - Tested negative for hepatitis panel Tx: -Albumin 75 gm -Monitor CMP NEPHRO #FEROZ on CKD DDx: Prerenal Vs Renal Vs HRS. Prerenal: Patient had history of severe diarrheal illness for 2 weeks with continued diuretic and Entresto usage.. Renal: Patient might be having ATN from severe dehydration HRS: As patient is currently having shock, could not attribute it to the HRS for now Dx: -Given 3L fluid boluses in ED -Urine electrolytes were sent - Creatinine at the time of admission is 7.2, baseline creatinine is 1.2 on 01/2025 Tx: -Will continue vasopressors -Patient is repleted with fluids -Strict intake and output measurement -Bain inserted. Strict input and output monitoring -Avoid nephrotoxins -Monitor renal panel -Renally dosed medications -Hold any diuretics and Entresto -Patient's receiving lead Dr. Munoz consulted and contacted, will be rounding on patient TTx: -As of now, patient's renal functions improved but since afternoon, noted to have decline in urine output. If patient does not make any urine output and if the creatinine continues to trend up, patient might need dialysis/CRRT # High anion gap metabolic acidosis # Lactic acidosis - Likely elevated in the setting of the shock Treatment: - Will continue Levophed drip - Will continue to monitor renal panel. URO #No active problems HEME #Coagulopathy #Elevated PT and INR DDx: Most likely in the setting of liver cirrhosis Dx: -PT 16.9, INR 1.6 on admission Tx: -Avoid chemical prophylaxis -SCDs ENDO #History of type 2 diabetes Dx: On admission initial glucose 151. A1c 4.8 from 05/02/2025 admission. A1c has been low over the last 1 year, likely falsely low in the setting of CKD. Patient used to take Januvia for diabetes at home. Tx: -Held home medications ID #Rule out SBP Dx: Patient does not complain of any right upper quadrant pain. Tx: -Peritoneal fluid studies: albumin, amylase, glucose, protein, cell count -Started on Zosyn MSK #No active problems SKIN #No active problems DVT prophylaxis: SCDs GI prophylaxis: Pantoprazole 40 mg IV BID Diet: Low sodium diet Bain: Present Lines: Peripheral IV and Central, Right IJV Antibiotics: Zosyn [06/02- ] CODE STATUS: FULL Reason for ICU care: Hypovolemic shock secondary to dehydration/? GI bleed requiring pressor support Patient plan of care was discussed with the attending documentation billing clerk, Dr. Nash. Brien Claire, PGY2
--- NOTE | 2025-06-02 14:38 | ESOP_ITS ---
<Statement entered by Petar Nash MD - 06/03/25 12:56> I was present for the critical and orozco portions of the procedure and was immediately available to provide assistance. PROCEDURES: Procedure Date / Time 06/02/251837 Paracentesis Indication: possible spontaneous bacterial peritonitis Informed consent obtained: from patient Time out done, and the following verified: correct patient, side and site, procedure, patient position and implants and/or equipment Procedure: diagnostic paracentesis Location: RLQ Local anesthetic used: lidocaine 2% Amount of anesthesia used (mL): 10 Bedside ultrasound used: yes, Ascites confirmed and location marked Preparation: 11 blade used to make everardo in skin Amount of fluid obtained (mL): 3,700 Fluid: clear and sent to lab for analysis EBL(ml): 1 Post procedure exam: awake, alert, normal BP, normal HR and normal SpO2 Patient tolerated procedure: well and no complications Complications: none Procedure comment: Paracentesis Procedure Note Patient Name: Julio Sawyer Date of Procedure: 06/02/2025 Procedure Performed By: Dr. Nash Hand Flesher(s): Yanely Caballero Procedure Name Paracentesis performed under ultrasound guidance. Indication [Diagnostic evaluation of ascitic fluid or therapeutic relief of symptoms caused by ascites.] Informed Consent ? Risks: The risks of the procedure were explained to the patient (or their legal herbicide service sales representative) and include, but are not limited to: o Bleeding or hematoma formation o Infection o Bowel perforation o Persistent fluid leak at the insertion site o Hypotension or shock (especially with large-volume paracentesis) ? Benefits: The benefits of the procedure include: o Relief of abdominal distension and discomfort o Obtaining ascitic fluid for diagnostic analysis o Improved respiratory function in cases of abdominal compression ? Alternatives: Alternatives to paracentesis were discussed, including: o Observation without intervention o Medical management (e.g., diuretics or sodium restriction) The patient (or legal herbicide service sales representative) verbalized understanding and provided informed consent. Time-Out A procedural time-out was performed with all team members present, verifying: ? Patient identity ? Correct procedure (paracentesis) ? Correct site ? Availability of necessary equipment Preparation 1. The patient was positioned in the supine or semi-upright position with the abdomen exposed. 2. The site of paracentesis was identified and marked under ultrasound guidance, typically in the left or right lower quadrant, avoiding visible veins and scars. 3. The area was prepped with Chlorhexidine and draped in a sterile fashion 4. Sterile gloves, gown, and mask were worn throughout the procedure. Procedure Steps 1. Ultrasound Guidance: o Real-time ultrasound was used to identify a pocket of fluid, assess its depth, and confirm the absence of nearby bowel or vascular structures. 2. Local Anesthesia: o 1% lidocaine 10 ml was infiltrated into the skin, subcutaneous tissue, and peritoneal wall at the planned insertion site. 3. Needle Insertion: o A small skin incision was made with a scalpel at the marked site. o A paracentesis needle or catheter was advanced through the incision into the peritoneal cavity under continuous ultrasound guidance. o Entry into the peritoneal cavity was confirmed by free flow of ascitic fluid through the needle. 4. Fluid Aspiration: o 3700 ml of ascitic fluid was collected for diagnostic studies (cell count, culture, gram stain, LDH, albumin cytology). o For therapeutic paracentesis, fluid was drained into vacuum bottles, ensuring the volume removed did not exceed recommended limits to prevent hypotension or renal dysfunction. o 75 ml of Albumin was ordered to reduce the risk of hemodynamic instability and or acute kidney injury 5. Catheter Removal and Site Care: o The catheter was removed, and the site was covered with a sterile occlusive dressing. Post-Procedure Monitoring ? The patient was monitored for immediate complications, including hypotension, bleeding, or abdominal pain. Complications ? No immediate complications were noted during or after the procedure. Plan ? Monitor for delayed complications, such as infection, fluid leakage, or organ injury. ? Follow up on ascitic fluid analysis results to guide further management. Assisted the attending gang miner Dr. Nash. Yanely Caballero, PGY-3
[2025-06-02] MEDS: Norepinephrine/D5W 8mg/250ml 8 MG/250 ML BAG 68.345 MG IV (14:54)
--- NOTE | 2025-06-02 15:49 | EKG_ITS ---
[facility] Test Date: 2025-06-02 Pat Name: DANIEL GRANADOS Department: Room: S251A Gender: Male Configuration Engineer: JAJA : [id number] Requested By: Shawn Munoz Order Number: [id number] Reading MD: Shawn Munoz Measurements Intervals [place] Rate: 82 P: 78 IN: 128 QRS: 103 QRSD: 80 T: -25 QT: 374 QTc: 437 Interpretive Statements SINUS RHYTHM MARKED RIGHT AXIS DEVIATION LOW QRS VOLTAGE PATTERN CONSISTENT WITH PULMONARY DISEASE POSSIBLE RIGHT VENTRICULAR CONDUCTION DELAY MARKED ST ELEVATION, CONSIDER ANTEROLATERAL INJURY ACUTE RI Compared to ECG 06/01/2025 11:58:26 Right-axis deviation now present Low QRS voltage now present ST (T wave) deviation now present Myocardial infarct finding now present Ventricular-paced complex(es) or rhythm no longer present /store/S0/[id number]
--- NOTE | 2025-06-02 16:05 | ECHO_ITS ---
Transthoracic Echo Report Ht (in): 65 Wt (lb): 164 Exam Location: Echo Lab Status: Inpatient Ironer Machine: Indications: Procedure Performed: BP: 92 / 54 HR: Technical Quality: Technically difficult study MEASUREMENTS (Male / Female) Normal Values 2D ECHO LV Diastolic Diameter PLAX 6.5 cm 4.2 - 5.9 / 3.9 - 5.3 cm LV Systolic Diameter PLAX 5.1 cm IVS Diastolic Thickness 0.9 cm 0.6 - 1.0 / 0.6 - 0.9 cm LVPW Diastolic Thickness 1.1 cm 0.6 - 1.0 / 0.6 - 0.9 cm LV Relative Wall Thickness 0.3 LVOT Diameter 2.1 cm LV Ejection Fraction MOD BP 38.8 % >= 55 % LV Ejection Fraction MOD 4C 38.0 % LV Ejection Fraction 4C AL 42.5 % LV Ejection Fraction MOD 2C 42.2 % LV Ejection Fraction 2C AL 41.1 % LA Volume Index 48.5 cm?/m? 16 - 28 cm?/m? Ascending Aorta Diameter 3.4 cm M-MODE Aortic Root Diameter MM 2.6 cm LA Systolic Diameter MM 4.7 cm LA Ao Ratio MM 1.8 AV Cusp Separation MM 2.2 cm DOPPLER AV Peak Velocity 151.0 cm/s AV Peak Gradient 9.1 mmHg AV Mean Gradient 5.0 mmHg AV Velocity Time Integral 26.7 cm AI Peak Velocity 271.5 cm/s AI Peak Gradient 29.5 mmHg AI Pressure Half Time 499.0 ms LVOT Peak Velocity 74.6 cm/s LVOT Peak Gradient 2.2 mmHg LVOT Velocity Time Integral 13.0 cm AV Area Cont Eq vti 1.7 cm? AV Area Cont Eq pk 1.7 cm? MV Area PHT 2.9 cm? MR Peak Velocity 358.0 cm/s MR Peak Gradient 51.3 mmHg Mitral E Point Velocity 43.2 cm/s Mitral A Point Velocity 39.8 cm/s Mitral E to A Ratio 1.1 LV E' Lateral Velocity 13.1 cm/s Mitral E to LV E' Lateral Ratio 3.3 LV E' Septal Velocity 4.9 cm/s Mitral E to LV E' Septal Ratio 8.8 TR Peak Velocity 220.0 cm/s TR Peak Gradient 19.4 mmHg PV Peak Velocity 81.4 cm/s PV Peak Gradient 2.7 mmHg FINDINGS Left Ventricle Normal left ventricular size, wall thickness. The ejection fraction is visually estimated at 35-40%. Global left ventricular systolic function is moderately decreased. There is grade II diastolic dysfunction of the left ventricle (pseudonormal filling pattern). Right Ventricle The right ventricular size is moderately increased with normal systolic function. The estimated right ventricular systolic pressure, 41 mmHg. RAP 15. Left Atrium Severely increased left atrial volume 48.5 mL/m?. Right Atrium The right atrium is normal by two-dimensional imaging, color flow and Doppler imaging with no structural abnormalities, no thrombus formation present. Atrial Septum The interatrial septum appears normal with no evidence of a shunt. Aorta The aorta is normal by two-dimensional, color flow and Doppler interrogation. Mitral Valve The mitral valve is normal by two-dimensional, color flow and Doppler interrogation. Mild mitral regurgitation. Aortic Valve Aortic valve sclerosis. Moderate aortic valve regurgitation. Tricuspid Valve The tricuspid valve is normal by two-dimensional, color flow and Doppler interrogation. There is mild tricuspid valve regurgitation. Pulmonic Valve The pulmonic valve is not well visualized. There is no significant pulmonic valve regurgitation. Vessels Dilated inferior vena cava. Pericardium The pericardium is normal by two-dimensional imaging. There is no significant pericardial effusion. CONCLUSIONS Indication: shock Normal LV size, wall thickness. Estimated EF at 35-40%. Global left ventricular systolic function is moderately decreased. There is grade II diastolic dysfunction. The RV size is moderately increased with normal systolic function. The estimated. RVSP, 41 mmHg. RAP 15. Severely increased LA volume 48.5 mL/m?. Aortic valve sclerosis with mild aortic regurgitation Dilated IVC. Callie Mao (Electronically Signed) Final Date: 03 June 2025 17:06
[2025-06-02] MEDS: LEVALBUTEROL RT 1.25 MG/0.5 ML NEBU INH (16:12)
[2025-06-02] MEDS: SODIUM CHLORIDE RT SOL 0.9% 3 ML NEBU INH (16:12)
[2025-06-02 16:19] LABS: Peritoneal Fluid WBC 53 /cmm
--- NOTE | 2025-06-02 16:25 | PC.SS ---
Patient presented [employer] with [employer] card. [employer] took copy and provided information to registration to update patient's EMR. Medicare not showing on patient's face sheet. Information to be updated on face sheet.
[2025-06-02 16:28] LABS: Peritoneal Fluid Appearance Hazy; Peritoneal Fluid Color Yellow; Peritoneal Fluid Mononuclear 85 %; Peritoneal Fluid Polynuclear 15 %; RBC,Peritoneal Fluid 128 /cmm
[2025-06-02 16:48] LABS: Albumin, Peritoneal Fluid < 1.0 gm/dL; Amylase,Peritoneal Fluid 25 IU/L; Glucose,Peritoneal Fluid 148 mg/dL; Protein Total,Misc Fluid < 2.0 g/dL
[2025-06-02 17:39] LABS: Chloride,Urine Random < 20.0 mMol/L (55.0-125.0); Creatinine,Random Urine 114 mg/dL (30-125); Potassium,Urine Random 35 mMol/L (12-62); Sodium,Urine Random 16.1 mMol/L (20.0-110.0)
[2025-06-02] MEDS: Norepinephrine/D5W 8mg/250ml 8 MG/250 ML BAG 85.082 MG IV (17:41)
[2025-06-02] MEDS: VASOPRESSIN IN NS IVPB 20 UNIT/100 ML BAG 9 UNIT IV (17:42)
[2025-06-02 17:43] LABS: Albumin, Serum 3.7 gm/dL (3.4-4.8); Anion Gap 19 (7-16); BUN/Creatinine Ratio 11 Ratio (12-20); Blood Urea Nitrogen 63 mg/dL (9-23); Calcium 9.2 mg/dL (8.3-10.6); Calcium (Corrected) 9.4 mg/dL (8.5-10.1); Carbon Dioxide 15.4 mMol/L (20.0-31.0); Chloride 99 mMol/L (98-107); Creatinine (Component) 5.9 mg/dL (0.6-1.3); Estimated Creatinine Clearance 11.1 mL/min (>60); Glucose 185 mg/dL (74-106); Osmolality,Calculated 289 (275-295); Phosphorous 7.0 mg/dL (2.4-5.1); Potassium 4.3 mMol/L (3.4-5.1); Sodium 133 mMol/L (136-145); eGFR 10 See Note
[2025-06-02] MEDS: SODIUM BICARB INJ 8.4% 1 mEq/ML 50 ML VIAL 50 MEQ IV (18:33)
[2025-06-02 18:38] LABS: Base Excess -9 (-3-3); HCO3 15 mEq/L (20-26); Inspired O2, VO2 Liters 4 L/min; Inspired Oxygen, FIO2 21 %; O2 Saturation 92 % (91-98); PCO2 25 mmHg (32.0-48.0); PO2 66 mmHg (83-108); pH, Arterial 7.38 (7.35-7.45)
[2025-06-02 18:39] LABS: Allen Test Performed/OK; Puncture Site Right Radial
[2025-06-02] MEDS: RINGERS LACTATED 1000 ML 500 ML 250 ML IV (18:47)
[2025-06-02 19:23] LABS: Alanine Aminotransferase 74 U/L (10-49); Albumin, Serum 3.8 gm/dL (3.4-4.8); Alkaline Phosphatase 84 U/L (46-116); Aspartate Amino Transferase 148 U/L (0-34); Bilirubin,Direct 3.5 mg/dL (0.0-0.3); Bilirubin,Total 7.4 mg/dL (0.3-1.2); Total Protein 6.5 gm/dL (5.7-8.2)
[2025-06-02] MEDS: SEVELAMER CARBONATE 800 MG TABLET PO (19:37)
[2025-06-02] MEDS: HYDROcodone/APAP 5/325 TABLET 1 TAB PO (19:41)
--- NOTE | 2025-06-02 19:52 | ESPR_ITS ---
Documentation for date of: 06/02/25 Subjective Subjective Interval history: Patient still on Levophed and vasopressin Procedure canceled for today clear liquid diet We will wait till the blood pressure comes up and patient is off the pressors Hemoglobin hematocrit 12.1 and 34.0 trending downwards Exam Vital Signs Temp Pulse Resp BP Pulse Ox O2 Del Method O2 Flow Rate 98.4 F 62 16 101/58 L 90 L Nasal Cannula 2 06/02/25 16:01 06/02/25 18:02 06/02/25 18:02 06/02/25 18:00 06/02/25 18:02 06/02/25 16:01 06/02/25 18:02 Objective Labs 06/02/25 04:40 06/02/25 16:51 Labs: Laboratory Results - last 24 hr 06/01/25 06/01/25 06/02/25 20:14 23:50 04:40 WBC 13.7 H RBC 3.88 L Hgb 12.1 L Hct 34.8 L MCV 90 MCH 31.2 MCHC 34.8 RDW Std Deviation 52.5 H Plt Count 176 Neut % (Auto) 78 Lymph % (Auto) 10 [place] % (Auto) 11 Eos % (Auto) 1 Baso % (Auto) 0 Neut # (Auto) 10.6 H Lymph # (Auto) 1.3 [place] # (Auto) 1.4 H Eos # (Auto) 0.2 Baso # (Auto) 0.0 Immature Gran # (Auto) 0.11 H Absolute Nucleated RBC 0.00 Immature Gran % 1 H Nucleated RBC % 0 Puncture Site ABG pH ABG pCO2 ABG pO2 ABG HCO3 ABG O2 Saturation ABG Base Excess Oxygen Liter Flow FiO2 Sodium 136 138 Potassium 4.2 4.0 Chloride 101 100 Carbon Dioxide 21.0 18.9 L Anion Gap 14 19 H BUN 60 H 60 H Creatinine 6.0 H* D 5.7 H* Estim Creat Clear Calc 11.0 L 11.5 L eGFR 9 L* 10 L* BUN/Creatinine Ratio 10 L 11 L Glucose 103 83 Calculated Osmolality 288 291 Lactic Acid 3.4 H 2.7 H Calcium 9.3 8.8 Corrected Calcium 9.5 Phosphorus 6.2 H Magnesium 1.8 Total Bilirubin 6.2 H D Direct Bilirubin AST 118 H ALT 75 H Alkaline Phosphatase 112 D Ammonia Troponin I 0.238 H* Total Protein 6.4 Albumin 3.1 L D Globulin 3.3 Albumin/Globulin Ratio 0.9 L Procalcitonin 0.34 Ur Random Creatinine Ur Random Sodium Ur Random Potassium Ur Random Chloride Fluid Total Protein Peritoneal Color Peritoneal Appearance Peritoneal WBC Peritoneal RBC Periton Polynucl WBCs Periton Mononucl WBCs Peritoneal Albumin Peritoneal Glucose Peritoneal Amylase Hepatitis A IgM Ab Non Reactive Hep Bs Antigen Non Reactive Hep B Core IgM Ab Non Reactive Hepatitis C Antibody Non Reactive 06/02/25 06/02/25 06/02/25 07:10 14:00 16:50 WBC RBC Hgb Hct MCV MCH MCHC RDW Std Deviation Plt Count Neut % (Auto) Lymph % (Auto) [place] % (Auto) Eos % (Auto) Baso % (Auto) Neut # (Auto) Lymph # (Auto) [place] # (Auto) Eos # (Auto) Baso # (Auto) Immature Gran # (Auto) Absolute Nucleated RBC Immature Gran % Nucleated RBC % Puncture Site ABG pH ABG pCO2 ABG pO2 ABG HCO3 ABG O2 Saturation ABG Base Excess Oxygen Liter Flow FiO2 Sodium Potassium Chloride Carbon Dioxide Anion Gap BUN Creatinine Estim Creat Clear Calc eGFR BUN/Creatinine Ratio Glucose Calculated Osmolality Lactic Acid Calcium Corrected Calcium Phosphorus Magnesium Total Bilirubin Direct Bilirubin AST ALT Alkaline Phosphatase Ammonia 22 Troponin I Total Protein Albumin Globulin Albumin/Globulin Ratio Procalcitonin Ur Random Creatinine 114 Ur Random Sodium 16.1 L Ur Random Potassium 35 Ur Random Chloride < 20.0 L Fluid Total Protein < 2.0 Peritoneal Color Yellow Peritoneal Appearance Hazy Peritoneal WBC 53 Peritoneal RBC 128 Periton Polynucl WBCs 15 Periton Mononucl WBCs 85 Peritoneal Albumin < 1.0 Peritoneal Glucose 148 Peritoneal Amylase 25 Hepatitis A IgM Ab Hep Bs Antigen Hep B Core IgM Ab Hepatitis C Antibody 06/02/25 06/02/25 06/02/25 16:51 16:57 18:31 WBC RBC Hgb Hct MCV MCH MCHC RDW Std Deviation Plt Count Neut % (Auto) Lymph % (Auto) [place] % (Auto) Eos % (Auto) Baso % (Auto) Neut # (Auto) Lymph # (Auto) [place] # (Auto) Eos # (Auto) Baso # (Auto) Immature Gran # (Auto) Absolute Nucleated RBC Immature Gran % Nucleated RBC % Puncture Site Right Radial ABG pH 7.38 ABG pCO2 25 L ABG pO2 66 L ABG HCO3 15 L ABG O2 Saturation 92 ABG Base Excess -9 L Oxygen Liter Flow 4 FiO2 21 Sodium 133 L Potassium 4.3 Chloride 99 Carbon Dioxide 15.4 L Anion Gap 19 H BUN 63 H Creatinine 5.9 H* Estim Creat Clear Calc 11.1 L eGFR 10 L* BUN/Creatinine Ratio 11 L Glucose 185 H D Calculated Osmolality 289 Lactic Acid Calcium 9.2 Corrected Calcium 9.4 Phosphorus 7.0 H Magnesium Total Bilirubin 7.4 H D Direct Bilirubin 3.5 H AST 148 H ALT 74 H Alkaline Phosphatase 84 D Ammonia Troponin I Total Protein 6.5 Albumin 3.7 D 3.8 Globulin Albumin/Globulin Ratio Procalcitonin Ur Random Creatinine Ur Random Sodium Ur Random Potassium Ur Random Chloride Fluid Total Protein Peritoneal Color Peritoneal Appearance Peritoneal WBC Peritoneal RBC Periton Polynucl WBCs Periton Mononucl WBCs Peritoneal Albumin Peritoneal Glucose Peritoneal Amylase Hepatitis A IgM Ab Hep Bs Antigen Hep B Core IgM Ab Hepatitis C Antibody Impressions Impression: GI bleeding Downward trending hemoglobin Hypotension on pressors Canceled the upper endoscopy Clear liquid diet ABG Interpretation ABG results: 06/01/25 06/02/25 13:40 18:31 ABG pH 7.44 7.38 ABG pCO2 29 L 25 L ABG pO2 68 L 66 L ABG HCO3 20 15 L ABG O2 Saturation 93 92 ABG Base Excess -3 -9 L Assessment & Plan A&P Narrative # GI bleeding in the setting of cirrhotic liver disease currently on octreotide infusion # Hypotension on norepinephrine Plan Once patient hemodynamically stabilizes we will consider doing a fiberoptic esophagogastroduodenoscopy with possible therapeutic intervention under intravenous moderate sedation tentatively scheduled for tomorrow Consent from the patient obtained and the procedure was tentatively scheduled Spoke with the nurse in the ICU and the patient to get the consent signed N.p.o. at midnight tonight except meds Agree with IV Protonix and octreotide Time Spent With Patient Time: Total time spent is greater than 50% in coordination of care (as documented) at patient's floor/unit and/or counseling patient:
--- NOTE | 2025-06-02 20:14 | ESPR_ITS ---
<Statement entered by Sobeida Craig MD - 06/04/25 08:31> I personally evaluated examined this patient this evening patient clinically doing worse patient's renal function not improved clinically still dry recommend the team to hydrate the patient give another liter of fluid at least and to monitor. She has for heart failure symptoms acute renal failure does not improve clinical examination does not show any evidence of left heart failure though there may be some evidence of JVD but we can continue to do the fluid for now. Evaluate patient with resident physician team discussed with ICU team as well and guided with the management we will monitor the patient closely in ICU and possibly see him tomorrow morning. Documentation for date of: 06/02/25 Subjective Subjective Interval history: No acute overnight events. No new or worsening symptoms. Denies fever, chills, headaches, chest pain, sob, cough, GI or urinary symptoms. Exam Vital Signs Temp Pulse Resp BP Pulse Ox O2 Del Method O2 Flow Rate 98.4 F 62 16 101/58 L 90 L Nasal Cannula 2 06/02/25 16:01 06/02/25 18:02 06/02/25 18:02 06/02/25 18:00 06/02/25 18:02 06/02/25 16:01 06/02/25 18:02 Narrative Exam GENERAL * Well-nourished, NAD, on room air. HEENT * NCAT.?VICKY. Oral mucosa is moist. Patent Nares NECK * Supple, nontender, no JVD. CHEST * RRR, no m/g/r * CTAB, no w/r/r, symmetrical expansion. ABDOMEN * Soft, mildly distended, nontender. No guarding/rebound tenderness/masses. * Bowel sounds presents EXTREMITIES * No edema/cyanosis.? SKIN * Warm and dry, no jaundice/rashes. NEUROMUSCULAR * No lumbar or midline, no CVA, no paraspinal muscle spasm or tenderness. * Moves all 4 extremities well, with full ROM and good CSM. * [place] x4, CN II-XII grossly intact. * No focal neurologic deficits. PSYCHIATRY * Normal mood and affect, cooperative, no SI or HI or hallucinations. Objective Labs 06/02/25 04:40 06/02/25 16:51 Labs: Laboratory Results - last 24 hr 08/06/25 08/06/25 08/07/25 20:14 23:50 04:40 WBC 13.7 H RBC 3.88 L Hgb 12.1 L Hct 34.8 L MCV 90 MCH 31.2 MCHC 34.8 RDW Std Deviation 52.5 H Plt Count 176 Neut % (Auto) 78 Lymph % (Auto) 10 [place] % (Auto) 11 Eos % (Auto) 1 Baso % (Auto) 0 Neut # (Auto) 10.6 H Lymph # (Auto) 1.3 [place] # (Auto) 1.4 H Eos # (Auto) 0.2 Baso # (Auto) 0.0 Immature Gran # (Auto) 0.11 H Absolute Nucleated RBC 0.00 Immature Gran % 1 H Nucleated RBC % 0 Puncture Site ABG pH ABG pCO2 ABG pO2 ABG HCO3 ABG O2 Saturation ABG Base Excess Oxygen Liter Flow FiO2 Sodium 136 138 Potassium 4.2 4.0 Chloride 101 100 Carbon Dioxide 21.0 18.9 L Anion Gap 14 19 H BUN 60 H 60 H Creatinine 6.0 H* D 5.7 H* Estim Creat Clear Calc 11.0 L 11.5 L eGFR 9 L* 10 L* BUN/Creatinine Ratio 10 L 11 L Glucose 103 83 Calculated Osmolality 288 291 Lactic Acid 3.4 H 2.7 H Calcium 9.3 8.8 Corrected Calcium 9.5 Phosphorus 6.2 H Magnesium 1.8 Total Bilirubin 6.2 H D Direct Bilirubin AST 118 H ALT 75 H Alkaline Phosphatase 112 D Ammonia Troponin I 0.238 H* Total Protein 6.4 Albumin 3.1 L D Globulin 3.3 Albumin/Globulin Ratio 0.9 L Procalcitonin 0.34 Ur Random Creatinine Ur Random Sodium Ur Random Potassium Ur Random Chloride Fluid Total Protein Peritoneal Color Peritoneal Appearance Peritoneal WBC Peritoneal RBC Periton Polynucl WBCs Periton Mononucl WBCs Peritoneal Albumin Peritoneal Glucose Peritoneal Amylase Hepatitis A IgM Ab Non Reactive Hep Bs Antigen Non Reactive Hep B Core IgM Ab Non Reactive Hepatitis C Antibody Non Reactive 06/02/25 06/02/25 06/02/25 07:10 14:00 16:50 WBC RBC Hgb Hct MCV MCH MCHC RDW Std Deviation Plt Count Neut % (Auto) Lymph % (Auto) [place] % (Auto) Eos % (Auto) Baso % (Auto) Neut # (Auto) Lymph # (Auto) [place] # (Auto) Eos # (Auto) Baso # (Auto) Immature Gran # (Auto) Absolute Nucleated RBC Immature Gran % Nucleated RBC % Puncture Site ABG pH ABG pCO2 ABG pO2 ABG HCO3 ABG O2 Saturation ABG Base Excess Oxygen Liter Flow FiO2 Sodium Potassium Chloride Carbon Dioxide Anion Gap BUN Creatinine Estim Creat Clear Calc eGFR BUN/Creatinine Ratio Glucose Calculated Osmolality Lactic Acid Calcium Corrected Calcium Phosphorus Magnesium Total Bilirubin Direct Bilirubin AST ALT Alkaline Phosphatase Ammonia 22 Troponin I Total Protein Albumin Globulin Albumin/Globulin Ratio Procalcitonin Ur Random Creatinine 114 Ur Random Sodium 16.1 L Ur Random Potassium 35 Ur Random Chloride < 20.0 L Fluid Total Protein < 2.0 Peritoneal Color Yellow Peritoneal Appearance Hazy Peritoneal WBC 53 Peritoneal RBC 128 Periton Polynucl WBCs 15 Periton Mononucl WBCs 85 Peritoneal Albumin < 1.0 Peritoneal Glucose 148 Peritoneal Amylase 25 Hepatitis A IgM Ab Hep Bs Antigen Hep B Core IgM Ab Hepatitis C Antibody 06/02/25 06/02/25 06/02/25 16:51 16:57 18:31 WBC RBC Hgb Hct MCV MCH MCHC RDW Std Deviation Plt Count Neut % (Auto) Lymph % (Auto) [place] % (Auto) Eos % (Auto) Baso % (Auto) Neut # (Auto) Lymph # (Auto) [place] # (Auto) Eos # (Auto) Baso # (Auto) Immature Gran # (Auto) Absolute Nucleated RBC Immature Gran % Nucleated RBC % Puncture Site Right Radial ABG pH 7.38 ABG pCO2 25 L ABG pO2 66 L ABG HCO3 15 L ABG O2 Saturation 92 ABG Base Excess -9 L Oxygen Liter Flow 4 FiO2 21 Sodium 133 L Potassium 4.3 Chloride 99 Carbon Dioxide 15.4 L Anion Gap 19 H BUN 63 H Creatinine 5.9 H* Estim Creat Clear Calc 11.1 L eGFR 10 L* BUN/Creatinine Ratio 11 L Glucose 185 H D Calculated Osmolality 289 Lactic Acid Calcium 9.2 Corrected Calcium 9.4 Phosphorus 7.0 H Magnesium Total Bilirubin 7.4 H D Direct Bilirubin 3.5 H AST 148 H ALT 74 H Alkaline Phosphatase 84 D Ammonia Troponin I Total Protein 6.5 Albumin 3.7 D 3.8 Globulin Albumin/Globulin Ratio Procalcitonin Ur Random Creatinine Ur Random Sodium Ur Random Potassium Ur Random Chloride Fluid Total Protein Peritoneal Color Peritoneal Appearance Peritoneal WBC Peritoneal RBC Periton Polynucl WBCs Periton Mononucl WBCs Peritoneal Albumin Peritoneal Glucose Peritoneal Amylase Hepatitis A IgM Ab Hep Bs Antigen Hep B Core IgM Ab Hepatitis C Antibody ABG Interpretation ABG results: 06/01/25 06/02/25 13:40 18:31 ABG pH 7.44 7.38 ABG pCO2 29 L 25 L ABG pO2 68 L 66 L ABG HCO3 20 15 L ABG O2 Saturation 93 92 ABG Base Excess -3 -9 L Quality Measures Quality Measures none Advance care planning discussed with:: patient Assessment & Plan Assessment Current Active Medications: Generic Name Dose Route Start Last Admin Trade Name Freq PRN Reason Stop Dose Admin Acetaminophen 650 mg 06/01/25 15:20 Acetaminophen 325 Mg Tablet PO 07/01/25 15:19 Q4HR PRN PAIN SCALE 1-3 (mild Acetaminophen 650 mg 06/01/25 15:20 Acetaminophen Supp 650 Mg Supp ID 07/01/25 15:19 Q4HR PRN PAIN SCALE 1-3 (mild Acetaminophen 650 mg 06/02/25 15:48 Acetaminophen 325 Mg Tablet PO 07/02/25 15:47 Q4HR PRN HEADACHE Acetaminophen 650 mg 06/02/25 15:48 Acetaminophen 325 Mg Tablet PO 07/02/25 15:47 Q4HR PRN PAIN SCALE 1-3 (mild Hydrocodone Bitart/Acetaminophen 1 tab 06/02/25 15:48 06/02/25 19:41 Hydrocodone/Apap 5/325 Tablet PO 06/07/25 15:47 1 tab Q4HR PRN Administration PAIN SCALE 4-6 (Moderate Hydrocodone Bitart/Acetaminophen 2 tab 06/02/25 15:48 Hydrocodone/Apap 5/325 Tablet PO 06/07/25 15:47 Q4HR PRN PAIN SCALE 7-10 (Severe Citric Acid/Sodium Citrate 30 ml 06/02/25 21:00 Citric Acid/Sodium Citr 15 Ml Udc (Bicitra) PO 07/02/25 20:59 BID HERMELINDA Piperacillin Sod/Tazobactam 50 mls @ 100 mls/hr 06/01/25 15:45 06/02/25 14:00 Sod 2.25 gm/ Sodium Chloride IV 06/08/25 15:44 100 mls/hr Q8HR HERMELINDA Administration Albumin Human 25 gm in 100 mls @ 100 mls/hr 06/01/25 19:13 06/02/25 08:01 Albuminar-25 Ivpb IV 06/04/25 19:12 100 mls/hr QDAY HERMELINDA Administration Norepinephrine/Dextrose 8 mg in 250 mls @ 6.974 mls/hr 06/02/25 11:48 06/02/25 18:30 Levophed In D5w 8mg/250ml IV 07/01/25 15:38 0.61 mcg/kg/min .Q24H PRN 85.082 mls/hr PER PROTOCOL Titration Protocol 0.05 MCG/KG/MIN Vasopressin/Sodium Chloride 20 unit in 100 mls @ 9 mls/hr 06/02/25 17:33 06/02/25 17:42 Vasostrict/Ns Ivpb IV 07/02/25 17:32 0.03 unit/min .Q11H7M PRN 9 mls/hr PER PROTOCOL Administration Protocol 0.03 UNIT/MIN Lactated Ringer's 500 mls @ 250 mls/hr 06/02/25 18:45 06/02/25 18:47 Lactated Ringers IV 06/02/25 20:30 250 mls/hr .Q2H HERMELINDA Administration Midodrine 10 mg 06/01/25 22:00 06/02/25 14:01 Midodrine 5 Mg Tablet PO 07/01/25 21:59 10 mg TID HERMELINDA Administration Nitroglycerin 0.4 mg 06/02/25 15:48 Nitroglycerin 0.4 Mg Subl Btl #25 SL 07/02/25 15:47 Q5MIN PRN CHEST PAIN Ondansetron HCl 4 mg 06/02/25 15:48 Ondansetron Inj 2 Mg/Ml Inj 2 Ml IVP 07/02/25 15:47 Q6HR PRN NAUSEA OR VOMITING Pantoprazole Sodium 40 mg 06/01/25 21:00 06/02/25 08:00 Pantoprazole Inj 40 Mg Vial IVP 07/01/25 20:59 40 mg BID HERMELINDA Administration Sodium Chloride 3 ml 06/02/25 15:48 06/02/25 16:12 Sodium Chloride Rt Joseline 0.9% 3 Ml Nebu INH 07/02/25 15:47 3 ml PRN PRN Administration SOLN Plan The is a 69-year-old male with a complex PMHx of nonischemic cardiomyopathy, HFrEF 40% s/p STATION REPAIRER pacemaker A-fib, group 2 PAH, CKD, T2DM, presented to the ED with chief complaints of generalized weakness, diarrhea and rectal bleed ongoing for 2 weeks. HFrEF EEF 40% on GDMT, s/p STATION REPAIRER pacemaker Mild hypovolemic shock in settings of volume depletion PAH group 2 Atrial fibrillation, rate controlled NSTEMI type II, chronic troponinemia Hx nonischemic cardiomyopathy FEROZ, prerenal azotemia Hx HFrEF (EF improved from 25?30% to 40% on GDMT) follows in our cardiology clinic and was recently seen with stable symptoms and adequate diuresis. He now presents with FEROZ (Cr 7.6), likely due to volume depletion from ongoing diuresis and GI fluid losses. There are no signs of acute CHF exacerbation. BNP is mildly elevated but likely chronic and influenced by Entresto. Troponin is chronically elevated (NSTEMI type II) without chest pain or other ischemic symptoms. In the ED, he received 3L IV fluids but remained hypotensive, requiring ICU admission for vasopressor support. He is now maintaining MAP in the mid-60s. Given improved EF, he may tolerate cautious IV fluid repletion; recommend close monitoring for fluid overload and renal function. Plan to wean off pressors as tolerated and resume GDMT gradually once hemodynamics stabilize. HR rate appears well controlled. Remains asymptomatic without chest pain, palpitation or shortness of breath. 06/02/2025: MAP remains low requiring increased pressers support, but continued on single presser. Had paracentesis today with about 3.7L removed. Lactic acidosis improved. ABG showing compensated metabolic acidosis, likely 2/2 lactic acidosis. He is getting bicab pushes intermittently. Renal function remains poor, currently anuric. On exam, appears volume depleted and can benefit from continued fluid resuscitation and daily albumen infusions. Recommended 2L NS at 250 cc/h. He could benefits from CRRT to address acidosis and renal function. Continue MIDODRINE and holding diuresis. Again, monitor for signs of fluid overload. Acute Transaminitis Possible underlying alcoholic liver cirrhosis vs. ischemic hepatopathy Communicare pneumonia Concern for GI bleed FEROZ on CKD Coagulopathy, elevated PT/INR T2DM SBP rule out Managed by primary team. Thank you for the opportunity to persuade in the care of this patient. Case was discussed with attending physician. Smith Cortez DO PGY II This document was transcribed using voice recognition technology. Minor inaccuracies may be present.
[2025-06-02] MEDS: Norepinephrine/D5W 8mg/250ml 8 MG/250 ML BAG 87.872 MG IV (21:12)
[2025-06-02] MEDS: CITRIC ACID/SODIUM CITR 15 ML UDC (BICITRA) 30 ML PO (21:28)
--- NOTE | 2025-06-02 21:49 | XR_ITS ---
Examination: AP lateral soft tissue neck 2 views TECHNIQUE: AP lateral soft tissue neck 2 views Date and time: June 02, 2025 10:17 PM INDICATIONS: Pain in the neck post placement of central line FINDINGS: No paratracheal hematoma noted No pneumothorax Right internal jugular central line tip SVC satisfactory position IMPRESSION: Right internal central line tip satisfactory position
--- NOTE | 2025-06-02 21:49 | XR_ITS ---
Examination: AP chest single view TECHNIQUE: AP portable semiupright chest single view Date and time: June 02, 2025, 10:21 PM Comparison June 02, 2025 11:46 AM INDICATIONS: Difficulty breathing today FINDINGS: Findings consistent with early bilateral perihilar pneumonia Normal heart size Cardiac leads right internal jugular central line in satisfactory position Incidental note heavy soft tissue right carotid calcification IMPRESSION: Bilateral perihilar pneumonia
[2025-06-02] MEDS: HYDROmorphone INJ 2 MG/ML VIAL 0.25 MG IVP (21:51)
[2025-06-02 22:46] LABS: Lactate (Lactic Acid) 8.6 mMol/L (0.4-2.0)
[2025-06-02 22:48] LABS: Basophils # (Auto) 0.0 Thou/mm3 (0.0-0.2); Basophils % (Auto) 0 % (0-2.5); Eosinophils # (Auto) 0.0 Thou/mm3 (0.0-0.5); Eosinophils % (Auto) 0 % (0-10); Hematocrit 30.0 % (41.0-53.0); Hemoglobin 10.1 g/dL (13.5-16.0); Immature Granulocytes Auto 0.17 Thou/mm3 (0.00-0.00); Lymphocytes # (Auto) 0.8 Thou/mm3 (1.0-4.8); Lymphocytes % (Auto) 5 % (10-50); Mean Corpuscular HGB Conc 33.7 g/dl (31.0-37.0); Mean Corpuscular Hemoglobin 30.7 pg (25.0-35.0); Mean Corpuscular Volume 91 fL (80-100); Monocytes # (Auto) 0.9 Thou/mm3 (0.0-0.8); Monocytes % (Auto) 6 % (0-12); Neutrophils # (Auto) 13.4 Thou/mm3 (1.8-7.7); Neutrophils % (Auto) 87 % (37-80); Nucleated Red Blood Cell # 0.02 Thou/mm3 (0.00-0.00); Nucleated Red Blood Cell % 0 /100 WBC (0); Platelet Count 177 Thou/mm3 (140-440); RDW Standard Deviation 52.7 fL (35.1-43.9); Red Blood Count 3.29 Miln/mm3 (4.50-5.90); White Blood Count 15.3 Thou/mm3 (3.8-10.6)
[2025-06-02] MEDS: Norepinephrine/D5W 8mg/250ml 8 MG/250 ML BAG 96.241 MG IV (23:36)
[2025-06-02 23:41] LABS: Albumin, Serum 3.6 gm/dL (3.4-4.8); Anion Gap 22 (7-16); BUN/Creatinine Ratio 11 Ratio (12-20); Blood Urea Nitrogen 63 mg/dL (9-23); Calcium 9.5 mg/dL (8.3-10.6); Calcium (Corrected) 9.8 mg/dL (8.5-10.1); Chloride 98 mMol/L (98-107); Creatinine (Component) 5.8 mg/dL (0.6-1.3); Estimated Creatinine Clearance 11.3 mL/min (>60); Glucose 239 mg/dL (74-106); Osmolality,Calculated 294 (275-295); Phosphorous 7.2 mg/dL (2.4-5.1); Potassium 4.4 mMol/L (3.4-5.1); Sodium 134 mMol/L (136-145); eGFR 10 See Note
[2025-06-02 23:43] LABS: Troponin I 0.437 ng/mL (0.0-0.045)
[2025-06-02 23:44] LABS: Carbon Dioxide 13.7 mMol/L (20.0-31.0)
[2025-06-03] VITALS (222 sets, daily range): BP systolic 0–300; BP diastolic 0–242; PULSE 0–107; RESP 10–32; TEMP 34.9–36.3; O2SAT 28–97
[2025-06-03] MEDS: SODIUM BICARB INJ 8.4% 1 mEq/ML 50 ML VIAL 50 MEQ IV ×3 (00:44→06:59)
[2025-06-03] MEDS: HYDROmorphone INJ 2 MG/ML VIAL 1 MG IVP (00:53)
[2025-06-03 01:41] LABS: Reflex Lactate? Y
[2025-06-03 02:09] LABS: Lactic Acid, 3 HR 9.5 mMol/L (0.4-2.0)
[2025-06-03] MEDS: Norepinephrine/NS 16mg/250ml 16 MG/250 ML BAG 48.12 MG IV (02:37)
[2025-06-03] MEDS: VASOPRESSIN IN NS IVPB 20 UNIT/100 ML BAG 9 UNIT IV ×2 (03:52→14:35)
[2025-06-03 05:50] LABS: Basophils # (Auto) 0.0 Thou/mm3 (0.0-0.2); Basophils % (Auto) 0 % (0-2.5); Eosinophils # (Auto) 0.0 Thou/mm3 (0.0-0.5); Eosinophils % (Auto) 0 % (0-10); Hematocrit 31.5 % (41.0-53.0); Hemoglobin 10.3 g/dL (13.5-16.0); Immature Granulocytes Auto 0.17 Thou/mm3 (0.00-0.00); Lymphocytes # (Auto) 1.2 Thou/mm3 (1.0-4.8); Lymphocytes % (Auto) 8 % (10-50); Mean Corpuscular HGB Conc 32.7 g/dl (31.0-37.0); Mean Corpuscular Hemoglobin 30.4 pg (25.0-35.0); Mean Corpuscular Volume 93 fL (80-100); Monocytes # (Auto) 1.3 Thou/mm3 (0.0-0.8); Monocytes % (Auto) 8 % (0-12); Neutrophils # (Auto) 13.6 Thou/mm3 (1.8-7.7); Neutrophils % (Auto) 83 % (37-80); Nucleated Red Blood Cell # 0.03 Thou/mm3 (0.00-0.00); Nucleated Red Blood Cell % 0 /100 WBC (0); Platelet Count 180 Thou/mm3 (140-440); RDW Standard Deviation 57.0 fL (35.1-43.9); Red Blood Count 3.39 Miln/mm3 (4.50-5.90); White Blood Count 16.4 Thou/mm3 (3.8-10.6)
[2025-06-03 06:16] LABS: INR 2.5 (0.9-1.3); Partial Thromboplastin Time 36.9 Seconds (22.0-36.0); Prothrombin Time 25.6 Seconds (9.0-12.2)
[2025-06-03] MEDS: MIDODRINE 5 MG TABLET 10 MG PO (06:23)
[2025-06-03] MEDS: PIPERACILLIN/TAZO 2.25GM INJ 2.25 GM in SODIUM CHLORIDE 0.9% (Popper) 50 ML IV ×3 (06:25→21:26)
[2025-06-03 06:30] LABS: Alanine Aminotransferase 259 U/L (10-49); Albumin, Serum 3.5 gm/dL (3.4-4.8); Albumin/Globulin Ratio 1.2 (1.2-2.2); Alkaline Phosphatase 90 U/L (46-116); Anion Gap 25 (7-16); BUN/Creatinine Ratio 12 Ratio (12-20); Bilirubin,Total 9.3 mg/dL (0.3-1.2); Blood Urea Nitrogen 76 mg/dL (9-23); Calcium 9.2 mg/dL (8.3-10.6); Calcium (Corrected) 9.6 mg/dL (8.5-10.1); Chloride 96 mMol/L (98-107); Creatinine (Component) 6.4 mg/dL (0.6-1.3); Estimated Creatinine Clearance 10.3 mL/min (>60); Globulin 2.9 gm/dL (2.3-3.5); Glucose 187 mg/dL (74-106); Magnesium 2.2 mg/dL (1.6-2.6); Osmolality,Calculated 297 (275-295); Potassium 4.6 mMol/L (3.4-5.1); Sodium 135 mMol/L (136-145); Total Protein 6.4 gm/dL (5.7-8.2); eGFR 9 See Note
[2025-06-03 06:39] LABS: Carbon Dioxide 14.4 mMol/L (20.0-31.0)
[2025-06-03 06:41] LABS: Aspartate Amino Transferase 1314 U/L (0-34)
[2025-06-03 06:51] LABS: Phosphorous 9.2 mg/dL (2.4-5.1)
[2025-06-03] MEDS: Sodium Bicarb Inj 8.4% SYR 50 ML SYRINGE IV ×5 (06:59→09:33)
[2025-06-03] MEDS: PHENYLEPHRINE HCL 40 MG in SODIUM CHLORIDE 0.9% 96 ML 5.94 MG IV ×2 (07:23→22:32)
[2025-06-03 07:52] LABS: Allen Test Performed/OK; Base Excess -11 (-3-3); HCO3 15 mEq/L (20-26); Inspired O2, VO2 Liters 5 L/min; O2 Saturation 88 % (91-98); PCO2 30 mmHg (32.0-48.0); PO2 61 mmHg (83-108); Puncture Site Right Radial; pH, Arterial 7.30 (7.35-7.45)
[2025-06-03] MEDS: LIDOCAINE HCL 1% 20 ML VIAL 5 ML INFL (09:00)
[2025-06-03] MEDS: Norepinephrine/NS 16mg/250ml 16 MG/250 ML BAG 106.004 MG IV (09:09)
[2025-06-03] MEDS: HYDROCORTISONE SOD SUCC INJ 100 MG VIAL IV (09:20)
[2025-06-03] MEDS: ETOMIDATE INJ 2 MG/ML VIAL 10 ML 20 MG IVP (09:37)
[2025-06-03] MEDS: ROCURONIUM INJ 10 MG/ML VIAL 10 ML 100 MG IV (09:38)
[2025-06-03] MEDS: ALBUMIN HUMAN 25% IVPB 25 GM/100 ML BTL IV ×3 (09:59→15:28)
[2025-06-03] MEDS: HEPARIN SOD INJ 1000 UNIT/ML VIAL 10 ML 3000 UNIT INDWELLCAT (10:00)
[2025-06-03] MEDS: EPINEPHrine in NS 16 MG IVPB 16 MG/250 ML BAG 3.713 MG IV (10:01)
[2025-06-03] MEDS: RINGERS LACTATED 500 ML 500 ML 999 ML IV (10:16)
[2025-06-03] MEDS: Norepinephrine/NS 16mg/250ml 16 MG/250 ML BAG 174.349 MG IV (10:20)
--- NOTE | 2025-06-03 10:30 | CHAP ---
Patient was busy with doctors. Prayer was given to family members in hallway by the Spiritual Care Volunteer who was in the hospital from 9:15-10:30.
--- NOTE | 2025-06-03 10:53 | XR_ITS ---
Examination: AP chest single view Technique one AP portable upright chest single view Date and time: June 03, 2025 1110 hours Comparison June 02, 2025 INDICATIONS: Hypoxic respiratory failure postintubation today FINDINGS: Dense opacity left base consider aspiration pneumonia Mild prominence left ventricle Right internal jugular central line tip right atrium Endotracheal tube tip 3.2 cm above kellee Cardiac leads stable position Moderate elevation right hemidiaphragm Suspicious for early bilateral perihilar pneumonia IMPRESSION: Dense opacity left base consistent with pneumonia, consider aspiration pneumonia Mild bilateral perihilar pneumonia
[2025-06-03 11:44] LABS: Albumin, Serum 3.6 gm/dL (3.4-4.8); Anion Gap 30 (7-16); BUN/Creatinine Ratio 13 Ratio (12-20); Blood Urea Nitrogen 77 mg/dL (9-23); Calcium 8.6 mg/dL (8.3-10.6); Calcium (Corrected) 8.9 mg/dL (8.5-10.1); Chloride 98 mMol/L (98-107); Creatinine (Component) 6.1 mg/dL (0.6-1.3); Estimated Creatinine Clearance 11.1 mL/min (>60); Glucose 86 mg/dL (74-106); Osmolality,Calculated 305 (275-295); Potassium 4.6 mMol/L (3.4-5.1); Sodium 142 mMol/L (136-145); eGFR 9 See Note
[2025-06-03 11:46] LABS: Carbon Dioxide 14.4 mMol/L (20.0-31.0)
[2025-06-03 11:49] LABS: Phosphorous 10.7 mg/dL (2.4-5.1)
[2025-06-03 11:59] LABS: Base Excess -16 (-3-3); HCO3 13 mEq/L (20-26); Inspired Oxygen, FIO2 21 %; O2 Saturation 85 % (91-98); PCO2 40 mmHg (32.0-48.0); PO2 67 mmHg (83-108)
[2025-06-03] MEDS: Norepinephrine/NS 16mg/250ml 16 MG/250 ML BAG 209.219 MG IV ×3 (12:03→14:35)
[2025-06-03 12:06] LABS: Allen Test Not Performed; Puncture Site Arterial Line; pH, Arterial 7.12 (7.35-7.45)
[2025-06-03] MEDS: Sodium Bicarb Inj 8.4% SYR 50 ML SYRINGE 100 ML IV (12:23)
[2025-06-03 12:38] LABS: Lactate (Lactic Acid) 17.0 mMol/L (0.4-2.0)
--- NOTE | 2025-06-03 13:25 | PD.INTPROC ---
PROCEDURES: Procedure Date / Time 06/02/25 1325 Procedural Time Out Time out performed: YES Central Line Placement Right IJ: Indication(s): shock Informed consent obtained: from patient Time out done, and the following verified: correct patient, side and site, procedure and patient position Patient placed on monitor/pulse ox: Yes Hand Hygiene: scrub Max Sterile Barrier Techniques used: cap, mask, sterile gown, sterile gloves, sterile full body drape and other Local anesthesia used: lidocaine 1% Amount of anesthesia used (mL): 5 Ultrasound used for placement: Yes Sterile Technique if Ultrasound used, including sterile gel: yes Central line lumen inserted: triple Post procedure: sutured in place, good blood return, all ports aspirated, flushed, capped and sterile dressing applied Post procedure x-ray: tip of catheter in good position and no pneumothorax seen EBL(ml): 5
--- NOTE | 2025-06-03 13:27 | PD.INTPROC ---
PROCEDURES: Procedure Date / Time 06/03/25 1327 Central Line Placement Right Femoral: Indication(s): shock and other (HEMODIALYSIS) Time out done, and the following verified: correct patient, side and site, procedure, patient position and implants and/or equipment Patient placed on monitor/pulse ox: Yes Hand Hygiene: scrub and soap & water Max Sterile Barrier Techniques used: cap, mask, sterile gown, sterile gloves, sterile full body drape and other Central line prep: Chlorhexidine scrub Local anesthesia used: lidocaine 1% Amount of anesthesia used (mL): 5 Ultrasound used for placement: Yes Sterile Technique if Ultrasound used, including sterile gel: yes Central line lumen inserted: triple Post procedure: sutured in place, good blood return, all ports aspirated, flushed, capped and sterile dressing applied Patient tolerated procedure: no complications EBL(ml): 10 Complications: none
--- NOTE | 2025-06-03 13:29 | PD.INTPROC ---
PROCEDURES: Procedure Date / Time 06/03/25 1329 Arterial Line Indication(s): frequent arterial line sampling and shock Informed consent obtained: implied (Emergent due to severe hemodynamic instability - unable to measure non invasive BP - calls to family unanswered) Time out done, and the following verified: correct patient, side and site, procedure, patient position and implants and/or equipment Size (Gauge): Other (21) Technique used: direct puncture technique Post-Procedure: line sutured into place and dry sterile dressing placed Patient tolerated procedure: well and no complications EBL(ml): 10 Complications: none Site: left and femoral
--- NOTE | 2025-06-03 13:31 | PD.INTPROC ---
PROCEDURES: Procedure Date / Time 06/03/25 1331 Arterial Line Size (Gauge): Other (21) Intubation Indication(s): acute Resp Failure and inability to protect airway Informed consent obtained: implied (severe hemodynamic instability - desaturations -attempts at calling family made and un-answered) Time out done, and the following verified: correct patient, procedure and patient position Sedative: etomidate Mg given: 20 Paralytic: rocuronium Mg given: 100 Laryngoscope: fiber optic video scope ET tube size: 7.5 ET tube uncuffed: Yes Tube secured depth (cm): 23 Tube secured location: teeth Tube placement confirmation: visualized tube passing through cords, equal breath sounds bilaterally and confirmation by capnometry Patient tolerated procedure: no complications EBL(ml): 0 Intubation complications: none Additional comments: CXR confirms adequate position
[2025-06-03] MEDS: VANCOMYCIN/WATER 1GM IVPB 200 ML IV (13:35)
[2025-06-03 13:37] LABS: Cocci Serology, IgM Negative (Negative)
[2025-06-03] MEDS: EPINEPHrine in NS 16 MG IVPB 16 MG/250 ML BAG 148.5 MG IV ×3 (14:00→17:22)
[2025-06-03 14:58] LABS: Reflex Lactate? Y
[2025-06-03 16:01] LABS: Lactic Acid, 3 HR 12.7 mMol/L (0.4-2.0)
--- NOTE | 2025-06-03 16:21 | ESPR_ITS ---
<Statement entered by Petar Nash MD - 06/04/25 13:11> TOTAL CC TIME: 65 MIN I saw and evaluated the patient. I reviewed the resident?s note and agree with findings and plan as documented in the resident?s note. Upon my evaluation, this patient had a high probability of imminent or life- threatening deterioration due to multisystem organ failure which required my direct attention, intervention, and personal management. This time is exclusive of time spent on procedures, which are documented separately if performed. Mr. Ruiz's condition continued to deteriorate through the day. He did not respond to multiple pushes of bicarbonate. Hemodialysis catheter was placed as was an arterial line and intubation for worsening respiratory failure due to volume overload. Repeat informal echocardiogram identified worsening of dilated cardiomyopathy with reduced ejection fraction now estimated between 25 to 30%. IVC exam consistent with volume overload. Diffuse B-lines also consistent with extravascular lung water. Antibiotics broadened. Unfortunately he developed progressive shock despite placing him on CRRT. 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 Patient reports that at first he has small blood- tinged diarrhea but the bleeding has increased to moreno red dripping output at times. He does have history of hemorrhoids but has not had this much bleeding previously. Patient currently follows up with Dr. Craig for cardiology and Dr. Munoz for nephrology. Patient last had a visit with Dr. Craig 3 weeks ago during which his Bumex dose was reduced to 0.5 mg daily due to worsening FEROZ. He had outpatient labs 2 days ago which showed FEROZ had worsened further to 7.6. Patient does report decreasing urine output. He otherwise denies any pain, including right upper quadrant pain, fevers, chills, sweats, nausea, vomiting, shortness of breath, or chest pain. ED workup showed hypotension to 79/50, with all other vitals normal. WBC slightly elevated at 12.4, Hgb 13.6, PT 16.9, INR 1.6. Chem panel showed BUN 89, creatinine 7.2, GFR 8. Osmolality 302. Lactic acid 4.0. Total bilirubin 4.1, AST 168, ALT 112, Alk phos 195. Troponin 0.223. BNP 439. Albumin 2.6. UA was negative. Stool occult positive for blood however no bloody BMs noted in ED. CXR showed thickened lower lobe interstitial lines suggestive of possible bilateral pneumonia. 06/02/2025: Patient is seen and examined at bedside. No acute overnight events. Denies any other complaints except for fatigue. Overnight, vasopressors needs went up and patient is on Levophed, 0.27 mcg/kg/min. Vitals are stable and MAP is around 65 mmHg. Overnight, patient made 600 mL of urine. Labs done this morning showed significant improvement in the renal functions with a creatinine down trended from 7.2-5.7. Hepatitis panel came back negative. On chest/abdomen/pelvis CT patient was found to have bilateral lower lobe opacities, consistent with patient's previous history of pneumonia 1 month ago and also found to have cavitary lesion for which cocci serology was sent. As the patient's vasopressors need is going up, central line is placed and patient is started on vasopressor through central line. Patient was found to have massive ascites and found to have shortness of breath possibly because of the massive ascites. Bedside ultrasound-guided paracentesis is done and drained 3.75 L of fluid and is sent for analysis. Also patient was given 75 g of albumin today and will continue to monitor renal functions. Repeat renal panel will be sent in the evening around 4 PM. As patient does not seem to be actively bleeding and low threshold of suspicion for the varices at this point of time, octreotide drip was stopped. Kayaking Instructor, Dr. Logan was called and discussed about the patient, endoscopy will be done once the patient becomes hemodynamically stable. 06/03/2025: Patient is seen and examined at bedside in the ICU. Overnight, patient did not produce any urine. Endorsed that he is feeling tired on short of breath. Appears fatigued and noted to have acidotic breathing. Overnight, patient received 2 doses of bicarb pushes. Labs done this morning showed WBC 16.4, INR 2.5, bicarb 14.4, BUN 76, creatinine 6.4, lactate 9.5, AST 1314, ALT 259, total bilirubin 9.3, ABG showed pH 7.3, bicarb 15, oxygen saturation 88. Patient's vasopressors needs continues to go up despite vasopressin and norepinephrine for which phenylephrine is added. Patient was given 4 pushes of bicarb. Triple-lumen Vas-Cath is placed for CRRT in view of severe metabolic acidosis and renal failure. Later as patient is having severe respiratory fatigue secondary to acidosis, patient was intubated and connected to mechanical ventilator. A dose of hydrocortisone 100 Mg IV push is given. Arterial line is placed in the left femoral artery for invasive blood pressure monitoring. 2 units of FFP are given Patient's medical condition was explained to the family in detail including shock in the setting of liver, renal failure. Later as patient's blood pressure remains to be unstable despite of addition of phenylephrine, epinephrine is added with discontinuation of phenylephrine. Repeat labs after intubation showed bicarb 14.4, creatinine 6.1, lactate 17. Goals of care discussion is done with and explained about the poor prognosis of the patient and possible cardiac arrest in the setting of severe renal and liver failure. Discussed about the risks and benefits of chest compressions to the family. reported that she needs some time to discuss about the CODE STATUS for now. Will continue CRRT, vasopressor support, mechanical ventilation for now. Despite the current management, patient likely to have a very poor prognosis. Exam Vital Signs Temp Pulse Resp BP Pulse Ox O2 Del Method O2 Flow Rate 94.9 F L 79 28 H 58/31 L 86 L Mechanical Ventilation 15 06/03/25 16:00 06/03/25 16:15 06/03/25 16:00 06/03/25 16:15 06/03/25 16:00 06/03/25 16:00 06/03/25 08:46 FiO2 100 06/03/25 16:00 Narrative Exam General: Sedated and mechanically ventilated HEENT: Normocephalic, atraumatic, mucous membranes moist. Noted icterus Heart: Regular rate and rhythm, no murmurs. Lungs: Clear to auscultation with no wheezing or crackles. Abdomen: Soft, nondistended, nontender, positive bowel sounds. ?No guarding or rebound tenderness. Noted ecchymotic patch on the right side of the abdomen Neurologic: Sedated and mechanically ventilated Extremities: No edema. Skin: Ecchymotic patch on the right side of the of the abdomen Objective Labs 06/03/25 05:20 06/03/25 11:05 Labs: Laboratory Results - last 24 hr 06/01/25 06/02/25 06/02/25 12:06 11:40 14:00 WBC RBC Hgb Hct MCV MCH MCHC RDW Std Deviation Plt Count Neut % (Auto) Lymph % (Auto) Gregory % (Auto) Eos % (Auto) Baso % (Auto) Neut # (Auto) Lymph # (Auto) Gregory # (Auto) Eos # (Auto) Baso # (Auto) Immature Gran # (Auto) Absolute Nucleated RBC Immature Gran % Nucleated RBC % PT INR APTT Puncture Site ABG pH ABG pCO2 ABG pO2 ABG HCO3 ABG O2 Saturation ABG Base Excess Oxygen Liter Flow FiO2 Sodium Potassium Chloride Carbon Dioxide Anion Gap BUN Creatinine Estim Creat Clear Calc eGFR BUN/Creatinine Ratio Glucose Calculated Osmolality Lactic Acid Calcium Corrected Calcium Phosphorus Magnesium Total Bilirubin Direct Bilirubin AST ALT Alkaline Phosphatase Troponin I Total Protein Albumin Globulin Albumin/Globulin Ratio Ur Random Creatinine Ur Random Sodium Ur Random Potassium Ur Random Chloride Fluid Total Protein < 2.0 Peritoneal Color Yellow Peritoneal Appearance Hazy Peritoneal WBC 53 Peritoneal RBC 128 Periton Polynucl WBCs 15 Periton Mononucl WBCs 85 Peritoneal Albumin < 1.0 Peritoneal Glucose 148 Peritoneal Amylase 25 Coccidioides IgM Ab Negative Blood Type O Positive Antibody Screen NEGATIVE Blood Bank Wristband ID Yes Blood Bank Comment FFP Ready 06/02/25 06/02/25 06/02/25 16:50 16:51 16:57 WBC RBC Hgb Hct MCV MCH MCHC RDW Std Deviation Plt Count Neut % (Auto) Lymph % (Auto) Gregory % (Auto) Eos % (Auto) Baso % (Auto) Neut # (Auto) Lymph # (Auto) Gregory # (Auto) Eos # (Auto) Baso # (Auto) Immature Gran # (Auto) Absolute Nucleated RBC Immature Gran % Nucleated RBC % PT INR APTT Puncture Site ABG pH ABG pCO2 ABG pO2 ABG HCO3 ABG O2 Saturation ABG Base Excess Oxygen Liter Flow FiO2 Sodium 133 L Potassium 4.3 Chloride 99 Carbon Dioxide 15.4 L Anion Gap 19 H BUN 63 H Creatinine 5.9 H* Estim Creat Clear Calc 11.1 L eGFR 10 L* BUN/Creatinine Ratio 11 L Glucose 185 H D Calculated Osmolality 289 Lactic Acid Calcium 9.2 Corrected Calcium 9.4 Phosphorus 7.0 H Magnesium Total Bilirubin 7.4 H D Direct Bilirubin 3.5 H AST 148 H ALT 74 H Alkaline Phosphatase 84 D Troponin I Total Protein 6.5 Albumin 3.7 D 3.8 Globulin Albumin/Globulin Ratio Ur Random Creatinine 114 Ur Random Sodium 16.1 L Ur Random Potassium 35 Ur Random Chloride < 20.0 L Fluid Total Protein Peritoneal Color Peritoneal Appearance Peritoneal WBC Peritoneal RBC Periton Polynucl WBCs Periton Mononucl WBCs Peritoneal Albumin Peritoneal Glucose Peritoneal Amylase Coccidioides IgM Ab Blood Type Antibody Screen Blood Bank Wristband ID Blood Bank Comment 06/02/25 06/02/25 06/03/25 18:31 22:30 01:52 WBC 15.3 H RBC 3.29 L Hgb 10.1 L D Hct 30.0 L MCV 91 MCH 30.7 MCHC 33.7 RDW Std Deviation 52.7 H Plt Count 177 Neut % (Auto) 87 H Lymph % (Auto) 5 L Gregory % (Auto) 6 Eos % (Auto) 0 Baso % (Auto) 0 Neut # (Auto) 13.4 H Lymph # (Auto) 0.8 L Gregory # (Auto) 0.9 H Eos # (Auto) 0.0 Baso # (Auto) 0.0 Immature Gran # (Auto) 0.17 H Absolute Nucleated RBC 0.02 H Immature Gran % 1 H Nucleated RBC % 0 PT INR APTT Puncture Site Right Radial ABG pH 7.38 ABG pCO2 25 L ABG pO2 66 L ABG HCO3 15 L ABG O2 Saturation 92 ABG Base Excess -9 L Oxygen Liter Flow 4 FiO2 21 Sodium 134 L Potassium 4.4 Chloride 98 Carbon Dioxide 13.7 L* Anion Gap 22 H BUN 63 H Creatinine 5.8 H* Estim Creat Clear Calc 11.3 L eGFR 10 L* BUN/Creatinine Ratio 11 L Glucose 239 H D Calculated Osmolality 294 Lactic Acid 8.6 H* 9.5 H* Calcium 9.5 Corrected Calcium 9.8 Phosphorus 7.2 H Magnesium Total Bilirubin Direct Bilirubin AST ALT Alkaline Phosphatase Troponin I 0.437 H* Total Protein Albumin 3.6 Globulin Albumin/Globulin Ratio Ur Random Creatinine Ur Random Sodium Ur Random Potassium Ur Random Chloride Fluid Total Protein Peritoneal Color Peritoneal Appearance Peritoneal WBC Peritoneal RBC Periton Polynucl WBCs Periton Mononucl WBCs Peritoneal Albumin Peritoneal Glucose Peritoneal Amylase Coccidioides IgM Ab Blood Type Antibody Screen Blood Bank Wristband ID Blood Bank Comment 06/03/25 06/03/25 06/03/25 05:20 07:38 11:05 WBC 16.4 H RBC 3.39 L Hgb 10.3 L Hct 31.5 L MCV 93 MCH 30.4 MCHC 32.7 RDW Std Deviation 57.0 H Plt Count 180 Neut % (Auto) 83 H Lymph % (Auto) 8 L Gregory % (Auto) 8 Eos % (Auto) 0 Baso % (Auto) 0 Neut # (Auto) 13.6 H Lymph # (Auto) 1.2 Gregory # (Auto) 1.3 H Eos # (Auto) 0.0 Baso # (Auto) 0.0 Immature Gran # (Auto) 0.17 H Absolute Nucleated RBC 0.03 H Immature Gran % 1 H Nucleated RBC % 0 PT 25.6 H D INR 2.5 H APTT 36.9 H Puncture Site Right Radial ABG pH 7.30 L ABG pCO2 30 L ABG pO2 61 L ABG HCO3 15 L ABG O2 Saturation 88 L ABG Base Excess -11 L Oxygen Liter Flow 5 FiO2 Sodium 135 L 142 Potassium 4.6 4.6 Chloride 96 L 98 Carbon Dioxide 14.4 L* 14.4 L* Anion Gap 25 H 30 H BUN 76 H 77 H Creatinine 6.4 H* D 6.1 H* Estim Creat Clear Calc 10.3 L 11.1 L eGFR 9 L* 9 L* BUN/Creatinine Ratio 12 13 Glucose 187 H D 86 D Calculated Osmolality 297 H 305 H Lactic Acid Calcium 9.2 8.6 Corrected Calcium 9.6 8.9 Phosphorus 9.2 H 10.7 H Magnesium 2.2 Total Bilirubin 9.3 H D Direct Bilirubin AST 1314 H* ALT 259 H Alkaline Phosphatase 90 Troponin I Total Protein 6.4 Albumin 3.5 3.6 Globulin 2.9 Albumin/Globulin Ratio 1.2 Ur Random Creatinine Ur Random Sodium Ur Random Potassium Ur Random Chloride Fluid Total Protein Peritoneal Color Peritoneal Appearance Peritoneal WBC Peritoneal RBC Periton Polynucl WBCs Periton Mononucl WBCs Peritoneal Albumin Peritoneal Glucose Peritoneal Amylase Coccidioides IgM Ab Blood Type Antibody Screen Blood Bank Wristband ID Blood Bank Comment 06/03/25 06/03/25 11:48 15:30 WBC RBC Hgb Hct MCV MCH MCHC RDW Std Deviation Plt Count Neut % (Auto) Lymph % (Auto) Gregory % (Auto) Eos % (Auto) Baso % (Auto) Neut # (Auto) Lymph # (Auto) Gregory # (Auto) Eos # (Auto) Baso # (Auto) Immature Gran # (Auto) Absolute Nucleated RBC Immature Gran % Nucleated RBC % PT INR APTT Puncture Site Arterial Line ABG pH 7.12 L* D ABG pCO2 40 D ABG pO2 67 L ABG HCO3 13 L ABG O2 Saturation 85 L ABG Base Excess -16 L Oxygen Liter Flow FiO2 21 Sodium Potassium Chloride Carbon Dioxide Anion Gap BUN Creatinine Estim Creat Clear Calc eGFR BUN/Creatinine Ratio Glucose Calculated Osmolality Lactic Acid 17.0 H* 12.7 H* Calcium Corrected Calcium Phosphorus Magnesium Total Bilirubin Direct Bilirubin AST ALT Alkaline Phosphatase Troponin I Total Protein Albumin Globulin Albumin/Globulin Ratio Ur Random Creatinine Ur Random Sodium Ur Random Potassium Ur Random Chloride Fluid Total Protein Peritoneal Color Peritoneal Appearance Peritoneal WBC Peritoneal RBC Periton Polynucl WBCs Periton Mononucl WBCs Peritoneal Albumin Peritoneal Glucose Peritoneal Amylase Coccidioides IgM Ab Blood Type Antibody Screen Blood Bank Wristband ID Blood Bank Comment ABG Interpretation ABG results: 06/01/25 06/02/25 06/03/25 13:40 18:31 07:38 ABG pH 7.44 7.38 7.30 L ABG pCO2 29 L 25 L 30 L ABG pO2 68 L 66 L 61 L ABG HCO3 20 15 L 15 L ABG O2 Saturation 93 92 88 L ABG Base Excess -3 -9 L -11 L 06/03/25 11:48 ABG pH 7.12 L* D ABG pCO2 40 D ABG pO2 67 L ABG HCO3 13 L ABG O2 Saturation 85 L ABG Base Excess -16 L Quality Measures Quality Measures none Advance care planning discussed with:: spouse Assessment & Plan Assessment Current Active Medications: Generic Name Dose Route Start Last Admin Trade Name Freq PRN Reason Stop Dose Admin Heparin Sodium (Porcine) 3,000 unit 06/03/25 09:24 06/03/25 10:00 Heparin Sod Inj 1000 Unit/Ml Vial 10 Ml INDWELLCAT 06/17/25 09:23 3,000 unit PRN PRN Administration DIALYSIS Piperacillin Sod/Tazobactam 50 mls @ 100 mls/hr 06/01/25 15:45 06/03/25 15:55 Sod 2.25 gm/ Sodium Chloride IV 06/08/25 15:44 Infused Q8HR HERMELINDA Infusion Albumin Human 25 gm in 100 mls @ 100 mls/hr 06/01/25 19:13 06/03/25 14:36 Albuminar-25 Ivpb IV 06/04/25 19:12 Infused QDAY HERMELINDA Infusion Vasopressin/Sodium Chloride 20 unit in 100 mls @ 9 mls/hr 06/02/25 17:33 06/03/25 14:35 Vasostrict/Ns Ivpb IV 07/02/25 17:32 0.03 unit/min .Q11H7M PRN 9 mls/hr PER PROTOCOL Administration Protocol 0.03 UNIT/MIN Norepinephrine Bitartrate 16 mg in 250 mls @ 3.487 mls/hr 06/03/25 02:21 06/03/25 15:00 Levophed In Ns 16mg/250ml IV 07/03/25 02:20 3 mcg/kg/min .Q24H PRN 209.219 mls/hr PER protocol Titration Protocol 0.05 MCG/KG/MIN Phenylephrine HCl 40 mg/ 100 mls @ 5.94 mls/hr 06/03/25 06:52 06/03/25 10:01 Sodium Chloride IV 07/03/25 06:51 0 mcg/kg/min .[id number] PRN 0 mls/hr Per Sepsis Protocol Titration Protocol 0.5 MCG/KG/MIN Epinephrine/Sodium Chloride 16 mg in 250 mls @ 3.713 mls/hr 06/03/25 09:16 06/03/25 16:00 Adrenalin/Ns 16 Mg Ivpb IV 07/03/25 09:15 2 mcg/kg/min .Q24H PRN 148.5 mls/hr Per Protocol Titration Protocol 0.05 MCG/KG/MIN Norepinephrine Bitartrate 64 1,000 mls @ 3.713 mls/hr 06/03/25 15:21 06/03/25 16:00 mg/ Sodium Chloride IV 07/03/25 14:57 3 mcg/kg/min .Q24H PRN 222.75 mls/hr PER protocol Titration Protocol 0.05 MCG/KG/MIN Albumin Human 25 gm in 100 mls @ 100 mls/hr 06/03/25 15:23 06/03/25 15:28 Albuminar-25 Ivpb IV 06/03/25 16:22 100 mls/hr X1 ONE Administration Ondansetron HCl 4 mg 06/02/25 15:48 Ondansetron Inj 2 Mg/Ml Inj 2 Ml IVP 07/02/25 15:47 Q6HR PRN NAUSEA OR VOMITING Pantoprazole Sodium 40 mg 06/01/25 21:00 06/03/25 11:33 Pantoprazole Inj 40 Mg Vial IVP 07/01/25 20:59 40 mg BID HERMELINDA Administration Pharmacy Consult 1 each 06/03/25 08:01 Pharmacy To Consult Patient XX 07/03/25 08:00 PRN PRN Starting 24Hr Continuous/Intermittent Dialysis Pharmacy Consult 1 each 06/04/25 09:00 Vancomycin Pharmacy To Dose 1 Each Each IV 07/04/25 08:59 QDAY PRN CONSULT Sodium Chloride 3 ml 06/02/25 15:48 06/02/25 16:12 Sodium Chloride Rt Joseline 0.9% 3 Ml Nebu INH 07/02/25 15:47 3 ml PRN PRN Administration SOLN Plan 69-year-old male with past medical history of nonischemic cardiomyopathy, afib, group 2 pulmonary hypertension, HFrEF 40% s/p [employer]IC[employer] pacemaker, and CKD who presented to the ED on 06/01/2025 with increasing rectal bleeding, overall weakness, and diarrhea which all began about 2 weeks ago. Patient was admitted to the ICU for hypovolemic shock in the setting of GI bleed. NEURO # Acute encephalopathy Differential diagnosis: In the setting of shock, severe metabolic acidosis - At the time of presentation, patient is alert, awake and oriented. On 06/03/2025, patient developed severe metabolic acidosis following which he became altered and drowsy, hypotensive for which he was intubated and mechanically ventilated Diagnostic test: - MAP is less than 65 mmHg despite vasopressors, including phenylephrine, Levophed, vasopressin - On 06/03/2025, WBC 16.4, bicarb 14.4, creatinine 6.4, lactate 9.5 - CARDIO #Shock DDx: Hypovolemic versus septic - Hypovolemic: Possible, in the setting of acute diarrheal illness, diuretic and Entresto usage in the setting of FEROZ and poor intake. Patient reported that he had 2 weeks of diarrheal illness, 1-2 bowel movements every day with no mucus, mostly watery. Also noted to have blood while wiping and on the last 3 days before the day of admission, noted to have more blood during the bowel movement. But unlikely to have hypovolemic shock from hemorrhage as patient's hemoglobin is stable. - Septic: Cannot be ruled out completely. Patient does not have any history of fever, abdominal pain, cough, shortness of breath. But patient had massive ascites, could be having possible SBP. Also noted to have bilateral infiltrates in the basal areas of the lung on CT chest. - Cardiogenic: The patient had history of alcoholic cardiomyopathy with HFrEF with EF 40%, status post [employer] SAL[employer]ICER pacemaker. Currently patient is 100% paced and does not have any history of chest pain, shortness of breath, palpitations. So unlikely to have cardiogenic shock. Bedside ultrasound done did not show any regional wall motion abnormality. Diagnostic tests: - Patient is taking Bumex 0.5 mg, Entresto, 25 mg of spironolactone - MAP at the time of the ED visit is less than 65 mmHg. Patient was given 3 L of LR bolus and 10 mg of midodrine in the ED, despite despite of which MAP is less than 65 mmHg - Labs at the time of admission showed WBC 12.4, hemoglobin 13.6, lactate 4 - EKG showed paced rhythm with no acute ST-T wave changes - Blood culture and peritoneal fluid culture was sent - Echocardiogram is ordered Treatment: - Started on norepinephrine drip, epinephrine, vasopressin - Albumin 1 g/kg is given on day 1 and day 2 of admission - Placed a central line and will continue the norepinephrine drip, vasopressin, epinephrine to maintain MAP greater than 65 mmHg - Paracentesis was done on 06/03/2025 and 3.75 L of fluid is taken and sent for analysis, rule out SBP - Will continue Zosyn and vancomycin - Patient is currently on CRRT - Despite all the above management, patient is likely to have poor prognosis and explained about the patient's medical condition to the family, TTx: -Titrate pressor # History of heart failure with reduced ejection fraction, not currently in acute exacerbation # s/p [employer] pacemaker # History of nonischemic cardiomyopathy, likely alcoholic cardiomyopathy Dx: Patient follows with Dr. Craig -Last echo showed 40% EF per Dr. Craig -Patient takes Entresto, Bumex, and Aldactone Tx: -Strict intake and output measurement -Daily weight -Hold off on all diuretics -Hold Entresto due to hypotension -Dr. Craig patient's water control station engineer was consulted to follow -Echocardiogram was ordered, showed EF of around 35 to 40% #Elevated troponin #NSTEMI type 2 DDx: Most likely NSTEMI type 2 demand ischemia in the setting of HFrEF and dehydration Dx: Troponin on admission was 0.223. EKG shows ventricular paced rhythm no ST changes. Patient does not complain of any chest pain. Tx: Will continue to monitor for symptoms, telemetry monitoring PULM # Incidental Opacities on chest CT DDx: Likely healed opacity from recent pneumonia 1 month ago versus cavitatory lesion Dx: -Patient on admission is not hypoxic, saturating well on room air, and denies any respiratory symptoms -CXR showed bilateral lower lobe densities -COVID screen negative Tx: -Started on empiric Zosyn 2.25 q8h (renally dosed) -Cocci serology ordered in view of suspected cavitatory lesion in the left lung -MRSA screen ordered, pending -Blood cultures ordered, came back negative after 48 hours -Sputum culture ordered, pending -Patient is currently on mechanical ventilator - Will continue vancomycin and Zosyn GI #GI bleed DDx: Upper versus lower. Upper - esophageal varices, gastric ulcers, gastritis. Lower - hemorrhoids, malignancy, AVM Dx: Patient presented with melena for 2 weeks, worsened in the last few days to include moreno red output with diarrhea. Patient with likely history of liver cirrhosis. -Stool occult positive in the ED with exam showing melanotic stool Tx: -GI consulted, appreciate recommendations -Octreotide drip is stopped as patient is suspected to have low threshold for varices as of now -Pantoprazole 40 mg IV BID -As patient is on vasopressors as of now and low suspicion of variceal bleed, discussed with Dr. Logan and will get EGD once the patient medical condition is stabilized #liver cirrhosis #Hyperbilirubinemia #Hypoalbuminemia DDx: Alcohol related versus Metabolic Dx: - Total bilirubin 4.1, appears to be chronically elevated. AST and ALT chronically elevated, AST>ALT - CT chest/abdomen/pelvis showed cirrhosis, severe ascites, splenomegaly - Tested negative for hepatitis panel Tx: -Albumin 75 gm -Monitor CMP NEPHRO #FEROZ on CKD DDx: Prerenal Vs Renal Vs HRS. Prerenal: Patient had history of severe diarrheal illness for 2 weeks with continued diuretic and Entresto usage.. Renal: Patient might be having ATN from severe dehydration HRS: As patient is currently having shock, could not attribute it to the HRS for now Dx: -Given 3L fluid boluses in ED -Urine electrolytes were sent - Creatinine at the time of admission is 7.2, baseline creatinine is 1.2 on 01/2025 Tx: -Will continue vasopressors -Patient is repleted with fluids -Strict intake and output measurement -Bain inserted. Strict input and output monitoring -Avoid nephrotoxins -Monitor renal panel -Renally dosed medications -Hold any diuretics and Entresto -Patient's cutting machine tender helper Dr. Munoz consulted and patient was started on CRRT # High anion gap metabolic acidosis # Lactic acidosis - Likely elevated in the setting of the shock Treatment: - Will continue Levophed, vasopressin, epinephrine drip - Will continue CRRT - Will continue to monitor renal panel. URO #No active problems HEME #Coagulopathy #Elevated PT and INR DDx: Most likely in the setting of liver cirrhosis Dx: -PT 16.9, INR 1.6 on admission, 2.5 as of 06/03/2025 Tx: -2 units of FFP are given -Avoid chemical prophylaxis -SCDs ENDO #History of type 2 diabetes Dx: On admission initial glucose 151. A1c 4.8 from 05/02/2025 admission. A1c has been low over the last 1 year, likely falsely low in the setting of CKD. Patient used to take Januvia for diabetes at home. Tx: -Held home medications ID #Ruled out SBP Dx: Patient does not complain of any right upper quadrant pain. Tx: -Peritoneal fluid studies: albumin, amylase, glucose, protein, cell count -did not show any evidence of SBP -Started on Zosyn and vancomycin MSK #No active problems SKIN #No active problems DVT prophylaxis: SCDs GI prophylaxis: Pantoprazole 40 mg IV BID Diet: Low sodium diet Lines: Peripheral IV and Central, Right IJV Antibiotics: Zosyn [06/02- ] CODE STATUS: FULL Reason for ICU care: Shock, undifferentiated likely septic versus hypovolemic, in the setting of severe hepatic and renal failure Patient plan of care was discussed with the attending technical support representative, Dr. Nash. Brien Claire, PGY2
[2025-06-03] MEDS: DEXTROSE 50%-WATER INJ 50 ML SYRINGE IVP ×3 (16:55→20:47)
--- NOTE | 2025-06-03 17:40 | ESPR_ITS ---
Documentation for date of: 06/03/25 Subjective Subjective Interval history: Patient evaluated in the ICU Hemoglobin hematocrit 10.3 and 31.5 Patient on Levophed and vasopressin At the moment with all the other metabolic disorders patient is not a candidate for any invasive GI workup Exam Vital Signs Temp Pulse Resp BP Pulse Ox O2 Del Method O2 Flow Rate 94.9 F L 69 28 H 75/36 L 89 L Mechanical Ventilation 15 06/03/25 16:00 06/03/25 17:30 06/03/25 17:10 06/03/25 17:30 06/03/25 17:10 06/03/25 16:00 06/03/25 08:46 FiO2 100 06/03/25 16:00 Objective Labs 06/03/25 05:20 06/03/25 11:05 Labs: Laboratory Results - last 24 hr 06/01/25 06/02/25 06/02/25 12:06 11:40 16:51 WBC RBC Hgb Hct MCV MCH MCHC RDW Std Deviation Plt Count Neut % (Auto) Lymph % (Auto) [place] % (Auto) Eos % (Auto) Baso % (Auto) Neut # (Auto) Lymph # (Auto) [place] # (Auto) Eos # (Auto) Baso # (Auto) Immature Gran # (Auto) Absolute Nucleated RBC Immature Gran % Nucleated RBC % PT INR APTT Puncture Site ABG pH ABG pCO2 ABG pO2 ABG HCO3 ABG O2 Saturation ABG Base Excess Oxygen Liter Flow FiO2 Sodium 133 L Potassium 4.3 Chloride 99 Carbon Dioxide 15.4 L Anion Gap 19 H BUN 63 H Creatinine 5.9 H* Estim Creat Clear Calc 11.1 L eGFR 10 L* BUN/Creatinine Ratio 11 L Glucose 185 H D Calculated Osmolality 289 Lactic Acid Calcium 9.2 Corrected Calcium 9.4 Phosphorus 7.0 H Magnesium Total Bilirubin Direct Bilirubin AST ALT Alkaline Phosphatase Troponin I Total Protein Albumin 3.7 D Globulin Albumin/Globulin Ratio Coccidioides IgM Ab Negative Blood Type O Positive Antibody Screen NEGATIVE Blood Bank Wristband ID Yes Blood Bank Comment FFP Ready 06/02/25 06/02/25 06/02/25 16:57 18:31 22:30 WBC 15.3 H RBC 3.29 L Hgb 10.1 L D Hct 30.0 L MCV 91 MCH 30.7 MCHC 33.7 RDW Std Deviation 52.7 H Plt Count 177 Neut % (Auto) 87 H Lymph % (Auto) 5 L [place] % (Auto) 6 Eos % (Auto) 0 Baso % (Auto) 0 Neut # (Auto) 13.4 H Lymph # (Auto) 0.8 L [place] # (Auto) 0.9 H Eos # (Auto) 0.0 Baso # (Auto) 0.0 Immature Gran # (Auto) 0.17 H Absolute Nucleated RBC 0.02 H Immature Gran % 1 H Nucleated RBC % 0 PT INR APTT Puncture Site Right Radial ABG pH 7.38 ABG pCO2 25 L ABG pO2 66 L ABG HCO3 15 L ABG O2 Saturation 92 ABG Base Excess -9 L Oxygen Liter Flow 4 FiO2 21 Sodium 134 L Potassium 4.4 Chloride 98 Carbon Dioxide 13.7 L* Anion Gap 22 H BUN 63 H Creatinine 5.8 H* Estim Creat Clear Calc 11.3 L eGFR 10 L* BUN/Creatinine Ratio 11 L Glucose 239 H D Calculated Osmolality 294 Lactic Acid 8.6 H* Calcium 9.5 Corrected Calcium 9.8 Phosphorus 7.2 H Magnesium Total Bilirubin 7.4 H D Direct Bilirubin 3.5 H AST 148 H ALT 74 H Alkaline Phosphatase 84 D Troponin I 0.437 H* Total Protein 6.5 Albumin 3.8 3.6 Globulin Albumin/Globulin Ratio Coccidioides IgM Ab Blood Type Antibody Screen Blood Bank Wristband ID Blood Bank Comment 06/03/25 06/03/25 06/03/25 01:52 05:20 07:38 WBC 16.4 H RBC 3.39 L Hgb 10.3 L Hct 31.5 L MCV 93 MCH 30.4 MCHC 32.7 RDW Std Deviation 57.0 H Plt Count 180 Neut % (Auto) 83 H Lymph % (Auto) 8 L [place] % (Auto) 8 Eos % (Auto) 0 Baso % (Auto) 0 Neut # (Auto) 13.6 H Lymph # (Auto) 1.2 [place] # (Auto) 1.3 H Eos # (Auto) 0.0 Baso # (Auto) 0.0 Immature Gran # (Auto) 0.17 H Absolute Nucleated RBC 0.03 H Immature Gran % 1 H Nucleated RBC % 0 PT 25.6 H D INR 2.5 H APTT 36.9 H Puncture Site Right Radial ABG pH 7.30 L ABG pCO2 30 L ABG pO2 61 L ABG HCO3 15 L ABG O2 Saturation 88 L ABG Base Excess -11 L Oxygen Liter Flow 5 FiO2 Sodium 135 L Potassium 4.6 Chloride 96 L Carbon Dioxide 14.4 L* Anion Gap 25 H BUN 76 H Creatinine 6.4 H* D Estim Creat Clear Calc 10.3 L eGFR 9 L* BUN/Creatinine Ratio 12 Glucose 187 H D Calculated Osmolality 297 H Lactic Acid 9.5 H* Calcium 9.2 Corrected Calcium 9.6 Phosphorus 9.2 H Magnesium 2.2 Total Bilirubin 9.3 H D Direct Bilirubin AST 1314 H* ALT 259 H Alkaline Phosphatase 90 Troponin I Total Protein 6.4 Albumin 3.5 Globulin 2.9 Albumin/Globulin Ratio 1.2 Coccidioides IgM Ab Blood Type Antibody Screen Blood Bank Wristband ID Blood Bank Comment 06/03/25 06/03/25 06/03/25 11:05 11:48 15:30 WBC RBC Hgb Hct MCV MCH MCHC RDW Std Deviation Plt Count Neut % (Auto) Lymph % (Auto) [place] % (Auto) Eos % (Auto) Baso % (Auto) Neut # (Auto) Lymph # (Auto) [place] # (Auto) Eos # (Auto) Baso # (Auto) Immature Gran # (Auto) Absolute Nucleated RBC Immature Gran % Nucleated RBC % PT INR APTT Puncture Site Arterial Line ABG pH 7.12 L* D ABG pCO2 40 D ABG pO2 67 L ABG HCO3 13 L ABG O2 Saturation 85 L ABG Base Excess -16 L Oxygen Liter Flow FiO2 21 Sodium 142 Potassium 4.6 Chloride 98 Carbon Dioxide 14.4 L* Anion Gap 30 H BUN 77 H Creatinine 6.1 H* Estim Creat Clear Calc 11.1 L eGFR 9 L* BUN/Creatinine Ratio 13 Glucose 86 D Calculated Osmolality 305 H Lactic Acid 17.0 H* 12.7 H* Calcium 8.6 Corrected Calcium 8.9 Phosphorus 10.7 H Magnesium Total Bilirubin Direct Bilirubin AST ALT Alkaline Phosphatase Troponin I Total Protein Albumin 3.6 Globulin Albumin/Globulin Ratio Coccidioides IgM Ab Blood Type Antibody Screen Blood Bank Wristband ID Blood Bank Comment Impressions Impression: # Posthemorrhagic anemia # Hypotension on 2 pressors with Levophed and vasopressin # Hemoglobin hematocrit relatively stable Patient not a candidate for any invasive GI workup at the moment ABG Interpretation ABG results: 06/01/25 06/02/25 06/03/25 13:40 18:31 07:38 ABG pH 7.44 7.38 7.30 L ABG pCO2 29 L 25 L 30 L ABG pO2 68 L 66 L 61 L ABG HCO3 20 15 L 15 L ABG O2 Saturation 93 92 88 L ABG Base Excess -3 -9 L -11 L 06/03/25 11:48 ABG pH 7.12 L* D ABG pCO2 40 D ABG pO2 67 L ABG HCO3 13 L ABG O2 Saturation 85 L ABG Base Excess -16 L Assessment & Plan A&P Narrative # GI bleeding in the setting of cirrhotic liver disease currently on octreotide infusion # Hypotension on norepinephrine Plan Once patient hemodynamically stabilizes we will consider doing a fiberoptic esophagogastroduodenoscopy with possible therapeutic intervention under intravenous moderate sedation tentatively scheduled for tomorrow Consent from the patient obtained and the procedure was tentatively scheduled Spoke with the nurse in the ICU and the patient to get the consent signed N.p.o. at midnight tonight except meds Agree with IV Protonix and octreotide Time Spent With Patient Time: Total time spent is greater than 50% in coordination of care (as documented) at patient's floor/unit and/or counseling patient: PROCEDURES: Arterial Line Size (Gauge): Other (21)
[2025-06-03 18:43] LABS: Lactate (Lactic Acid) 11.7 mMol/L (0.4-2.0)
[2025-06-03 19:11] LABS: Albumin, Serum 4.1 gm/dL (3.4-4.8); Anion Gap 26 (7-16); BUN/Creatinine Ratio 11 Ratio (12-20); Blood Urea Nitrogen 31 mg/dL (9-23); Calcium 7.9 mg/dL (8.3-10.6); Calcium (Corrected) 7.9 mg/dL (8.5-10.1); Chloride 98 mMol/L (98-107); Creatinine (Component) 2.7 mg/dL (0.6-1.3); Estimated Creatinine Clearance 25.0 mL/min (>60); Glucose 70 mg/dL (74-106); Osmolality,Calculated 280 (275-295); Phosphorous 5.4 mg/dL (2.4-5.1); Potassium 4.0 mMol/L (3.4-5.1); Sodium 138 mMol/L (136-145); eGFR 25 See Note
[2025-06-03 19:12] LABS: Carbon Dioxide 14.5 mMol/L (20.0-31.0)
--- NOTE | 2025-06-03 19:27 | PC.NURSE ---
at 1129, levo maxed out per protocol, at 1218, epi gtt maxed out per protocol, MD osorio made aware, aware of BP and MAP low, at 1200
--- NOTE | 2025-06-03 19:29 | PC.NURSE ---
at 1200 on assessment, pt pupils sluggish reactive and equal, at 1500, PUPILS 5 unreactive to light, Dr. Caballero and Dr. Claire notified, MDs had a family meeting with spouse giving update of pt status, pt continues to be FULL CODE status at this time
[2025-06-03 21:37] LABS: Reflex Lactate? Y
[2025-06-03 22:14] LABS: Lactic Acid, 3 HR 12.3 mMol/L (0.4-2.0)
[2025-06-04] VITALS (28 sets, daily range): BP systolic 52–69; BP diastolic 26–35; PULSE 0–60; RESP 20–29; TEMP 35.3; O2SAT 78–96
[2025-06-04] MEDS: DEXTROSE 50%-WATER INJ 50 ML SYRINGE IVP (00:26)
[2025-06-04 00:35] LABS: Albumin, Serum 3.6 gm/dL (3.4-4.8); Anion Gap 24 (7-16); Blood Urea Nitrogen 23 mg/dL (9-23); Calcium 7.2 mg/dL (8.3-10.6); Calcium (Corrected) 7.5 mg/dL (8.5-10.1); Chloride 98 mMol/L (98-107); Glucose 148 mg/dL (74-106); Osmolality,Calculated 278 (275-295); Phosphorous 4.9 mg/dL (2.4-5.1); Potassium 3.9 mMol/L (3.4-5.1); Sodium 136 mMol/L (136-145)
[2025-06-04 00:36] LABS: BUN/Creatinine Ratio 12 Ratio (12-20); Carbon Dioxide 13.8 mMol/L (20.0-31.0); Creatinine (Component) 2.0 mg/dL (0.6-1.3); Estimated Creatinine Clearance 33.8 mL/min (>60); eGFR 35 See Note
[2025-06-04] MEDS: VASOPRESSIN IN NS IVPB 20 UNIT/100 ML BAG 9 UNIT IV (01:06)
[2025-06-04] MEDS: PHENYLEPHRINE HCL 40 MG in SODIUM CHLORIDE 0.9% 96 ML 59.4 MG IV (01:07)
[2025-06-04] MEDS: Norepinephrine/NS 16mg/250ml 16 MG/250 ML BAG 209.219 MG IV (02:15)
--- NOTE | 2025-06-04 03:23 | PD.RESEVENT ---
Documentation for date of: 06/04/25 Event Note Event Note: Goals of care discussion Goals of care discussion was performed in the presence of attending physician, Dr. Beltran and family was explained that patient has been on 4 pressors including Levophed, epinephrine, vasopressin and phenylephrine. Despite being on multiple pressor support, patient's blood pressure has been persistently dropping with a MAP of 38 refractory to pressors now. Patient has ongoing shock causing multiple organ failure. They were explained that CPR will not reverse his condition given his severe clinical deterioration and progressive worsening, Therefore family changed him to DNR /DNI and it was decided to stop all the active management. They wish to proceed with comfort care. However before comfort care measure was started patient as soon as vasopressors were weaned off. Patient was extubated and ventilator was switched off. pronouncement was performed at 3:21 AM. Patient was discussed with attending physician,Dr. Devin Correa MD, PGY 3
--- NOTE | 2025-06-04 03:31 | DES_ITS ---
Documentation for date of: 06/04/25 Pronouncement Note Date and Time of Date of : 06/04/25 Time of : 03:21 PCOD Preliminary cause of : Cardiopulmonary arrest Summary Additional details: Patient was pronounced at 03:21 AM. On exam, no heart or breath sounds were noted after one minute of auscultation. Pupils were fixed and dilated without corneal reflex. Patient was pronounced on 06/04/2025 at 03:21. Attending Dr. Beltran was notified. Pacemaker and ventilator were switched off and patient was extubated. Family was present and condolences were offered. Patient was discussed with attending physician, Dr.Biswakarma Dr Sunny MD PGY3 Additional Data Confirmation of : no pulse, no respirations, no heart sounds and pupils fixed and dilated Family: at bedside Attending/PCP notified?: No Attending physician: Petar Nash MD Was code activated?: No Autopsy requested?: No digital forensics examiner notified?: No Organ bank notified?: No
--- NOTE | 2025-06-04 10:27 | ESPR_ITS ---
RE: DANIEL GRANADOS : 1955 DATE OF SERVICE: 06/03/2025 SUBJECTIVE: The patient is a 69-year-old _ male, very well known to me with a history of nonischemic cardiomyopathy, chronic systolic heart failure, ejection fraction 20% improved to 40%, and ICD/CRDD implantation. He came to the hospital for acute renal failure, sepsis, and ascites. The patient's acute renal failure continued to worsen. The patient became very unstable today. Hypotension requiring multiple vasopressors maxed out. Did not improve with high grade IV fluids as well. Multiple broad-spectrum antibiotics were given. The patient is intubated on mechanical ventilation, chromatosis with dilated fixed pupils because of multiorgan hypoperfusion and multisystem failure and multiorgan failure. Not expected to survive, explained to the patient and the family as well and recommended supportive care at this point. OBJECTIVE: General: The patient is nonresponsive on ventilator. Vital Signs: Blood pressure is 56/40 mmHg despite maximum multiple vasopressors. LABORATORY DATA: White count 16.4, hemoglobin 10.3. Chemistry panel showed severe lactic acidosis and creatinine and BUN elevated. Lactic acid level was 12.3, max started at 17 this morning. IMPRESSION: 1. Hypotension possibly secondary to a combination of cardiogenic shock and septic shock. 2. Hypoxic respiratory failure. 3. Hypoxic encephalopathy due to multiple organ perfusion and cerebral hypoperfusion. RECOMMENDATIONS: Condition is critical, progress is poor, not expected to survive. DT: 18:40:53 TT: 10:04:00 Ref: [id number] - TID: [id number] [facility]
--- NOTE | 2025-06-04 14:27 | DES_ITS ---
<Statement entered by Petar Nash MD - 07/07/25 13:22> TOTAL TIME: 45MINUTES I reviewed the resident?s note and agree with findings and plan as documented in the resident?s note. Documentation for date of: 06/04/25 Summary Date and Time Date of admission: 06/01/25 15:20 Date of : 06/04/25 Time of : 03:21 Summary Details: Patient was pronounced at 03:21 AM. On exam, no heart or breath sounds were noted after one minute of auscultation. Pupils were fixed and dilated without corneal reflex. Patient was pronounced on 06/04/2025 at 03:21. Attending Dr. Beltran was notified by night resident. Pacemaker and ventilator were switched off and patient was extubated. Family was present and condolences were offered. Hospital Course: Patient is a 69-year-old male with past medical history of nonischemic card iomyopathy, afib (not on anticoagulation), group 2 pulmonary hypertension, HFrEF 40% s/p PAINT MIXER pacemaker, type 2 diabetes, and CKD who presented to the ED on 06/01/2025 with increasing rectal bleeding, overall weakness, and diarrhea which all began about 2 weeks ago. Patient reports that at first he has small blood- tinged diarrhea but the bleeding has increased to moreno red dripping output at times. He does have history of hemorrhoids but has not had this much bleeding previously. Patient currently follows up with Dr. Craig for cardiology and Dr. Munoz for nephrology. Patient last had a visit with Dr. Craig 3 weeks ago during which his Bumex dose was reduced to 0.5 mg daily due to worsening FEROZ. He had outpatient labs 2 days ago which showed FEROZ had worsened further to 7.6. Patient does report decreasing urine output. He otherwise denies any pain, including right upper quadrant pain, fevers, chills, sweats, nausea, vomiting, shortness of breath, or chest pain. ED workup showed hypotension to 79/50, with all other vitals normal. WBC slightly elevated at 12.4, Hgb 13.6, PT 16.9, INR 1.6. Chem panel showed BUN 89, creatinine 7.2, GFR 8. Osmolality 302. Lactic acid 4.0. Total bilirubin 4.1, AST 168, ALT 112, Alk phos 195. Troponin 0.223. BNP 439. Albumin 2.6. UA was negative. Stool occult positive for blood however no bloody BMs noted in ED. CXR showed thickened lower lobe interstitial lines suggestive of possible bilateral pneumonia. Patient is admitted into the ICU in view of shock, likely hypovolemic with suspected septic shock in the setting of bilateral infiltrates in the lungs. Patient is started on Levophed drip. Overnight, patient made around 600 cc of urine output and renal functions improved with BUN 60, creatinine 5.7. Later central line is placed for the vasopressors and 3.75 L of ascitic fluid is drained and fluid is sent for analysis that did not show any evidence of SBP. Overnight, patient was noted to have decreased urine output and also found to have metabolic acidosis for which 2 ampoules of bicarb pushes were given. On 06/03/2025, dialysis catheter was placed in the right femoral, patient was intubated in the setting of decreased sensorium. Patient was given multiple pushes of bicarb. As the patient blood pressures continue to drop despite the Levophed, phenylephrine and vasopressin, patient was started on epinephrine and phenylephrine was discontinued. Patient was started on CRRT. Repeated renal panel every 6 hourly. Later on 06/04/2025, around 3 AM, as patient's MAP is around 38 despite 4 vasopressors, goals of care discussion was done by the attending Dr. Beltran and the resident doctor with the following which the CODE STATUS was changed to DNR/DNI and decided to stop all the active management. The and family wish to proceed with the comfort care. However before comfort measures were started patient positive for immediately as the vasopressors were stopped. Patient was extubated and ventilator was switched off. was pronounced at 3:21 AM Diagnosis: # Shock likely distributive vs hypovolemic # Decompensated liver cirrhosis # Coagulopathy # FEROZ on CKD likely renal vs prenal # High anion gap metabolic acidosis # Lactic acidosis # GI bleed, upper vs lower # Ascites s/p paracentesis, transudative effusion # Acute Hypoxic Respiratgory failur in setting of shock # Intubated on Mechanical Ventialation # History of heart failure with reduced ejection fraction, not in acute exacerbation # s/p PAINT MIXER pacemaker # History of nonischemic cardiomyopathy, likely alcoholic cardiomyopathy # Acute encephalopathy in setting of shock # Elevated troponin # NSTEMI type 2 # Incidental Opacities on chest CT # Hyperbilirubinemia # Hypoalbuminemia # History of type 2 diabetes # Normocytic Normochromic Anemia Case discussed with attending fruit express agent Dr Petar Nash MD. Brien Claire MD Internal Medicine PGY2 Additional Data Confirmation of as documented by pronouncing clinician: no pulse, no respirations, no heart sounds and pupils fixed and dilated Family: at bedside Attending/PCP notified?: Yes Attending physician: Petar Nash MD Was code activated?: No Autopsy requested?: No Visit Providers Provider Primary care physician: Rolando Irizarry MD Admitting clinician: Petar Nash Attending physician on admission: Petar Nash Consults: 06/01/25 14:05 Consult to Nephrology Stat Comment: FEROZ Consulting Provider: Shawn Munoz 06/01/25 14:15 Consult to Gastroenterology Stat Comment: UGIB Consulting Provider: Toni Logan 06/01/25 17:21 Consult to Cardiology Routine Comment: History of HFrEF and pt of Dr. Craig Consulting Provider: Sobeida Craig 06/01/25 20:54 Referral [place] Stat Comment: Pronouncing clinician: Harshil Correa Diagnosis PCOD Cause of : Shock Contributing Factors (1) Acute on chronic kidney failure: (2) Cirrhosis: (3) CHF (congestive heart failure): (4) Non-ischemic cardiomyopathy: Discharge Plan Plan Patient Disposition: Prescriptions/Referrals Referrals: Rolando Irizarry MD [Primary Care Provider] - Patient/Caregiver Discharge Instructions Print Language: Turkmen Discharge Order Discharge Orders: Discharge (Routine); Ordered 06/04/25 Ordered By: Brynn Beltran
[2025-06-04 14:44] LABS: Cocci Serology, IgG Negative (Negative)
--- NOTE | 2025-06-08 05:40 | ESCONSULT_ITS ---
RE: DANIEL GRANADOS : 1955 DATE OF CONSULTATION: 06/03/2025 The patient was admitted on 06/01/2025 and he on 06/04/2025. This is for my visit to him on 06/03/2025 in the intensive care unit. This is a 69-year-old male who was admitted to the hospital on 06/01/2025 for worsening kidney failure, not feeling well and GI bleed. He was admitted to the intensive care unit due to low blood pressure. He had worsening kidney failure. I saw him in the intensive care unit on 06/02/2025. I met him and his and they signed consent for initiation of hemodialysis. The plan was to have a tunneled catheter to be placed on 06/03/2025, but he had severe coagulopathy and the doctor of the intensive care unit placed a VasCath in the femoral vein to initiate dialysis of CRRT type. The patient was intubated and he is on the ventilator. Blood pressure is low and the patient is on 3 blood pressure medications; Levophed, vasopressin and phenylephrine. The patient is sedated and I spoke to his who is sitting at his side and there is also a daughter. Systolic mean blood pressure is around 60 and CRRT/SLED is running. Lungs are clear. Abdomen is soft. Extremities, no edema. IMPRESSION AND PLAN: Multi-organ failure. We have severe cardiomyopathy with decompensated liver cirrhosis and worsening bilirubin and liver enzymes. We have worsening metabolic acidosis and lactic acidosis. Yesterday, we had paracentesis of 3.75 L and I am quite sure there will be accumulation of ascitic fluid again. The patient is receiving huge amount of IV fluid, but it is not helping the worsening blood pressure. The main problem now is there is no good perfusion of the organs. There is multi-organ failure, the kidneys, the heart, the liver and CRRT is not able to remove the toxins and the acids. I think with 3 or 4 vasopressors, the prognosis is very poor or no prognosis. We will do our best. We will try to remove with CRRT 400 mL an hour. We are doing the CRRT with no heparin because of the severe coagulopathy. There may be a huge element of sepsis and the patient is on Zosyn. There is high possibility of pneumonia. Again, prognosis is poor. DT: 05:18:52 TT: 05:39:00 Ref: [id number] - TID: [id number]
--- NOTE | 2025-06-08 07:17 | ESCONSULT_ITS ---
RE: DANIEL GRANADOS : 1955 DATE OF CONSULTATION: 06/02/2025 The patient was seen in ICU. REFERRING PHYSICIAN: Rolando Irizarry MD REASON FOR CONSULTATION: Chronic kidney disease. HISTORY OF PRESENT ILLNESS: The patient is a 69-year-old male, a patient of Dr. Irizarry, who I was following for chronic kidney disease. The patient came to the emergency room complaining of feeling weak and passing dark reddish stool indicating of GI bleed. He was found in advanced kidney failure and he was admitted. PAST MEDICAL HISTORY: 1. Worsening kidney disease. One year ago, GFR was around 60, but it was going down very rapidly. The patient has marked CHF and he needs his high doses of diuretics to the degree to keep him out of CHF and edema. He uses high doses of diuretics. Two weeks ago, his GFR was down to 26 and lab work a few days ago before admission showed GFR was down to around 8 or 10, and this is what was shown in the ER. The last visit in the office, he was told to cut on his bumetanide. The patient likes to be out of all edema, but I told him he has to try to balance between to accept some edema to avoid the worsening kidney and end-stage renal disease. 2. Cardiomyopathy. According to Dr. Marcus Craig, it is nonischemic. Mostly, it is alcoholic. Sure part of it may be due to diabetes for 25 years. 3. Status post pacemaker from the notes of Dr. Marcus Craig. I understand he needs a defibrillator to avoid sudden cardiac . Ejection fraction most of the time is around 25%. EKG this admission showed possibility of acute MN, although coronary angiogram was normal. There is some elevation of the troponin, but it can be just because of the worsening kidney insufficiency. 4. Severe orthostatic hypotension. Actually, I think due to severe decreased perfusion. Many times in the office, the systolic blood pressure will be around 85 or lower. Recently, Dr. Marcus Craig started the patient on midodrine 5 mg b.i.d., but the patient told me during his last office visit, he did not use it because he felt worse. 5. History of pulmonary hypertension. 6. Diabetes mellitus for 25 years. 7. Severe liver cirrhosis. Lately, the patient will have marked ascites. His labs in the emergency room indicate high transaminases and high bilirubin. Also, marked ascites. MEDICATIONS: 1. Soliqua 30 units q.a.m. 2. Amiodarone 200 mg b.i.d. 3. Bumetanide between 0.5 mg daily to 1 mg daily. The patient was taught how to vary his diuretics, but he tends to take the highest dose to avoid any edema and trying to relieve his ascites. 4. Spironolactone 25 mg by half a tablet daily. 5. Entresto half a tablet b.i.d. 6. Midodrine 10 mg b.i.d., but I doubt the patient was using it. PHYSICAL EXAMINATION: GENERAL: The patient was seen in intensive care unit. He is sitting comfortably in bed, fully alert, oriented and his came and all issues was discussed. He is on a low dose of Levophed. VITAL SIGNS: Mean blood pressure around 65 mmHg. CHEST: Lungs clear. Maybe some rales at the bases. HEART: Regular. ABDOMEN: Soft. The patient has paracentesis 3.75 L a few hours earlier. EXTREMITIES: No edema. IMAGING: Chest x-ray, no CHF, but possible pneumonia. LABORATORY DATA: labs yesterday on 06/01/2025, WBC was 12.4, GFR was 8, serum CO2 was 20.3, and hemoglobin 13.6. ASSESSMENT AND PLAN: Worsening chronic kidney disease. The patient is dry like bone. The worsening kidney failure is multifactorial to start with. We have extreme lower perfusion due to the cardiomyopathy and now, we are having decompensating liver cirrhosis. The patient received 4 or 5 L of different fluids including normal saline, bicarbonate, and albumin. He made 600 mL of fluid of urine overnight, but after the paracentesis, urine output started to be low considering we have pneumonia and sepsis and decompensated liver cirrhosis and cardiomyopathy and coagulopathy and GI bleed. I have a lengthy discussion with the patient and and I stated the best thing is to initiate dialysis. I stated dialysis mostly will be permanent, but if there is improvement, we can stop at any movement, but for the time being, dialysis it was decompensating over along the time due to the diabetes and the heart and liver and we are in a bad situation. I got the consent. I put an order to put a tunneled catheter and I left a message to interventional radiology. DT: 05:05:47 TT: 07:09:00 Ref: [id number] - TID: [id number]
== END 2025-06-04 03:21 | disposition expired | DRG 432 ==
LOC: SERX 12:05 → SERHOLD 15:46 → S2SX 17:49
PROVIDERS: Radiology Diagnostic Radiology; Student in an Organized Health Care Education/Training Program; Admitting Provider Internal Medicine; Emergency Provider Nurse Practitioner Family; PCP Family Medicine; Visit Provider Internal Medicine
DX: K70.30 Alcoholic cirrhosis of liver without ascites (principal); I21.A1 Myocardial infarction type 2; J18.9 Pneumonia, unspecified organism; J96.01 Acute respiratory failure with hypoxia; K25.4 Chronic or unspecified gastric ulcer with hemorrhage; K92.1 Melena; N17.9 Acute kidney failure, unspecified; I42.8 Other cardiomyopathies; I50.22 Chronic systolic (congestive) heart failure; D68.9 Coagulation defect, unspecified; E87.20 Acidosis, unspecified; G93.1 Anoxic brain damage, not elsewhere classified; I42.0 Dilated cardiomyopathy; I42.6 Alcoholic cardiomyopathy; I48.20 Chronic atrial fibrillation, unspecified; R18.8 Other ascites; I85.10 Secondary esophageal varices without bleeding; R57.1 Hypovolemic shock; I27.22 Pulmonary hypertension due to left heart disease; E11.22 Type 2 diabetes mellitus with diabetic chronic kidney disease; N18.9 Chronic kidney disease, unspecified; Z95.1 Presence of aortocoronary bypass graft; E86.0 Dehydration; Z51.5 Encounter for palliative care; Z66 Do not resuscitate; Z79.899 Other long term (current) drug therapy; Z95.0 Presence of cardiac pacemaker
CPT/HCPCS: 36415; 36600; 70360; 71045; 71250; 74176; 80048; 80053; 80069; 80074; 80076; 80202; 81001; 82042; 82140; 82150; 82270; 82436; 82570; 82803; 82945; 83605; 83735; 83880; 84100; 84133; 84145; 84157; 84300; 84484; 85025; 85610; 85730; 86331; 86635; 86850; 86900; 86901; 86927; 87040; 87070; 87081; 87205; 87811; 89051; 93005; 93306; 94002; 94003; 94640; J0169; J0171; J0456; J0696; J1171; J1643; J1720; J2354; J2371; J2470; J2543; J2598; J3375; J3490; J7030; J7050; J7070; J7120; P9047; P9060; A9270